=== PATIENT | male | born 1955 | race Caucasian/White ===

== ENCOUNTER 2016-11-07 17:04 | Emergency (ER) | payer OTHER ==
[~2016-11-07] VITALS: Ht 182.9 cm; Wt 87.0 kg
[~2016-11-07 17:04] MED LIST: CYCL5TAB PO; INSPMPHMLG; OXYC1TAB3 PO
[2016-11-07 17:06] VITALS: BP 193/118; PULSE 93; TEMP 36.5; O2SAT 98; Ht 182.9 cm; Wt 87.0 kg
--- NOTE | 2016-11-07 17:32 | EMERGENCY ROOM VISIT NOTE ---
History Report prepared by Hans: Ailyn Hendrix Under the Supervision of: Dr. Fortunato Franco M.D. First contact with patient: 17:19 Chief Complaint: HYPOGLYCEMIA Stated Complaint: HYPOGLYCEMIA, HTN History of Present Illness The patient is a 61 year old male who presents to the Emergency Room with complaints of sudden hypoglycemia that occurred prior to arrival. He currently rates his discomfort as a 10/10 in severity. The patient states that today he changed his infusion site and notes that his blood glucose was 277 mg/dL earlier today. He states that his blood glucose dropped below 40 mg/dL. The patient states that he has had this happen in the past when changing his infusion site. He reports a normal appetite today. Source of History: patient Onset: prior to arrival Position: other (global) Symptom Intensity: 1010 Quality: other (hypoglycemia) Timing: other (sudden) Review of Systems See HPI for pertinent positives & negatives. A total of 10 systems reviewed and were otherwise negative. Past Medical & Surgical Medical Problems: (1) Atypical chest pain (2) Depressive disorder (3) Generalized anxiety disorder (4) HISTORY OF TOBACCO USE Family History Diabetes mellitus Hypertension Social History Smoking Status: Former Smoker Alcohol Use: none Drug Use: none Marital Status: Occupation Status: unemployed Current/Historical Medications Scheduled Cyclobenzaprine Hcl (Flexeril), 5 MG PO TID Insulin Human Lispro (Insulin Humalog Pump ), 1 EA N/A UD Scheduled PRN Oxycodone Ir (Roxicodone Ir), 5 MG PO Q6H PRN for Pain Allergies Coded Allergies: Nortriptyline (Verified Allergy, Unknown, ITCHING, 09/01/15) Physical Exam Vital Signs Date Time Temp Pulse Resp B/P Pulse Ox O2 Delivery O2 Flow Rate FiO2 11/07/16 17:06 36.5 93 18 193/118 98 Room Air Physical Exam The patient refused the physical exam. Medical Decision & Procedures Laboratory Results Test 11/07/16 17:09 Bedside Glucose 170 mg/dl (70-99) Labs reviewed by ED physician. ECG Findings: other ED Course 1723: Past medical records reviewed. The patient was evaluated in room B12B. A complete history and physical examination was performed. The patient states that he would like to go home at this time and was discharged. Medical Decision Differential diagnosis: Etiologies such as metabolic, infection, hypo/hyperglycemia, electrolyte abnormalities, cardiac sources, intracerebral event, toxicologic, neurologic, as well as others were entertained. This is a 61-year-old male who is brought to the emergency department because his blood sugar was low. Upon arrival to emergency Department patient is refusing physical examination. He wishes to be discharged home so he can eat. I feel that this is reasonable as he denies any fevers and not feeling well. The patient reports he sometimes get hypoglycemic when he moves his insulin source. I do believe that this is what happened. Patient was in agreement with the treatment plan. Impression Primary Impression: Hypoglycemia Scribe Attestation The scribe's documentation has been prepared under my direction and personally reviewed by me in its entirety. I confirm that the note above accurately reflects all work, treatment, procedures, and medical decision making performed by me. Departure Information Dispostion Home / Self-Care Referrals Nicolas Padron D.O. (PCP) Forms HOME CARE DOCUMENTATION FORM, IMPORTANT VISIT INFORMATION, WORK / SCHOOL INSTRUCTIONS Patient Instructions Hypoglycemia, My [facility] Additional Instructions You received narcotic or benzodiazepene medication while in the emergency room today. Do not drive, operate heavy machinery, or drink alcohol under the influence of this medication. You have been examined and treated today on an emergency basis only. This is not a substitute for, or an effort to provide, complete comprehensive medical care. It is impossible to recognize and treat all injuries or illnesses in a single emergency department visit. It is therefore important that you follow up closely with Dr Padron. Call as soon as possible for an appointment. Thank you for your time and consideration. I look forward to speaking with you again soon. Please don't hesitate to call us if you have any questions.
== END 2016-11-07 17:33 | disposition home or self-care (01) ==
LOC: EDBD 17:04 → C.EDB 17:05
DX: E16.2 Hypoglycemia, unspecified (principal); F32.9 Major depressive disorder, single episode, unspecified; F41.1 Generalized anxiety disorder; Z87.891 Personal history of nicotine dependence; Z79.4 Long term (current) use of insulin; Z88.8 Allergy status to other drugs, medicaments and biological substances; Z83.3 Family history of diabetes mellitus; Z82.49 Family history of ischemic heart disease and other diseases of the circulatory system

== ENCOUNTER 2017-06-22 13:25 | Emergency (ER) | payer OTHER ==
[~2017-06-22] VITALS: Ht 182.9 cm; Wt 97.7 kg
[2017-06-22 13:28] VITALS: TEMP 36.3; Ht 182.9 cm; Wt 97.7 kg
[2017-06-22] MEDS ORDERED: ONDANSETRON 4MG OD TAB PO STA (14:26)
[2017-06-22] MEDS ORDERED: MoRPHine SULFATE 10 MG/ML CARP/VIAL IM STA (14:26)
--- NOTE | 2017-06-22 14:41 | EMERGENCY ROOM VISIT NOTE ---
History First contact with patient: 14:09 Chief Complaint: FALL Stated Complaint: FELL, KNEE, NECK PAIN, HEADACHE History of Present Illness The patient is a 61 year old male who presents to the Emergency Room with complaints of throbbing headache, neck pain and knee pain after sustaining a mechanical fall last night. The patient was staying at a motel. He tripped over a towel on the floor in the bathroom falling headfirst into the tub. He reports striking the top of his head hit his left knee against the tub. He is also expressing severe neck pain. He is also experiencing some tingling into his left arm. He denies any weakness. The patient denies any difficulty breathing or chest pain. No abdominal pain. He does not take any blood thinners. The patient has a history of chronic lower back pain. He tried to take an oxycodone this morning with minimal relief. On the way to the hospital , the patient experienced 3 episodes of vomiting. He denies any changes in vision. Review of Systems 10 system review performed and negative unless noted in HPI or below Past Medical/Surgical History Medical Problems: (1) Atypical chest pain (2) Depressive disorder (3) Generalized anxiety disorder (4) HISTORY OF TOBACCO USE Chronic back pain Diabetes Family History Diabetes mellitus Hypertension Social History Smoking Status: Former Smoker Alcohol Use: none Drug Use: none Marital Status: Occupation Status: unemployed Current/Historical Medications Scheduled Cyclobenzaprine Hcl (Flexeril), 5 MG PO TID Cyclobenzaprine Hcl (Flexeril), 10 MG PO TID Insulin Human Lispro (Insulin Humalog Pump ), 1 EA N/A UD Scheduled PRN Oxycodone Ir (Roxicodone Ir), 5 MG PO Q6H PRN for Pain Promethazine Hcl (Phenergan), 25 MG PO Q6H PRN for Nausea Physical Exam Vital Signs Date Time Temp Pulse Resp B/P (MAP) Pulse Ox O2 Delivery O2 Flow Rate FiO2 06/22/17 18:14 79 18 169/82 98 Room Air 06/22/17 17:12 72 15 177/99 98 Room Air 06/22/17 16:07 75 18 175/90 100 Room Air 06/22/17 13:28 36.3 76 16 198/99 99 Room Air Physical Exam GENERAL: 81-year-old male, mildly uncomfortable, SKIN: The skin was intact. No ecchymosis noted. HEAD: Normocephalic atraumatic. EYES: Pupils equal round and reactive to light and accommodation. Conjunctivae without injection, sclerae without icterus. Extraocular movements intact. MOUTH: Mucous membranes moist. Tonsils are not enlarged. Pharynx without erythema or exudate. Uvula midline. Airway patent. Tongue does not deviate. NECK: Supple without nuchal rigidity. No lymphadenopathy. Tenderness to palpation over the cervical spinous processes. Negative Spurling sign. No JVD. HEART: Regular rate and rhythm without murmurs gallops or rubs. LUNGS: Clear to auscultation bilaterally without wheezes, rales or rhonchi. No accessory muscle use. ABDOMEN: Positive bowel sounds x 4.Soft, MUSCULOSKELETAL +1 pitting edema in the left lower extremity. Mild calf tenderness noted. Trace pitting edema on the right lower extremity. Mild pain with flexion of the left knee. Mild swelling noted of the left knee. No effusion noted. Strength in the upper extremities is equal bilaterally. Strength 5/5 throughout. NEURO: Patient was alert and oriented to person place and time. Cerebellar function intact. Normal sensation to touch. No focal neurological deficits. Medical Decision & Procedures ER Provider Diagnostic Interpretation: Lower extremity ultrasound Patient Name: JEFRY TEJEDA Unit Number: [id number] Dictated: 06/22/171638 Transcribed: 06/22/171638 KRISTY Printed Date/Time: [~ rep prt dt]/[~ rep prt tm] [~ rep ct labl] - [~ rep ct ivnm] [facility] [place]iology [place] [address] Dictated: 06/22/171638 Transcribed: 06/22/171638 KRISTY Printed Date/Time: [~ rep prt dt]/[~ rep prt tm] [~ rep ct labl] - [~ rep ct ivnm] IMPRESSION: 1. No evidence of deep venous thrombus within the left lower extremity. 2. Probable 4.9 x 2.3 x 3.3 cm left popliteal cyst. Electronically signed by: Jimi Nash M.D. 06/22/2017 4:40 PM Dictated Date/Time: 06/22/2017 4:39 PM The status of this report is Signed. Draft = Not yet reviewed or approved by Radiologist. Signed = Reviewed and approved by Radiologist. <AttendingPhy></AttendingPhy> <FamilyPhy>Nicolas Padron D.O.</FamilyPhy> < PrimaryPhy>Nicolas Padron D.O.</PrimaryPhy> <UnitNumber>[id number]</ UnitNumber> <VisitNumber>[id number]</VisitNumber> <PatientName>JEFRY TEJEDA</PatientName> <DateOfBirth>1955</DateOfBirth> <Location>[facility]</ Location> <ServiceDate>06/22/17</ServiceDate> <MNE>ESINDI</MNE> <OrderingPhy> Tory Barber PA-C</OrderingPhy> <OrderingPhyMNE>f rep ord dr tay</ OrderingPhyMNE> <DictatingPhyMNE>f rep dict dr tay</DictatingPhyMNE> <CCListMNE> f rep ct mne</CCListMNE> <AdmittingPhyMNE>f pt admit dr tay</AdmittingPhyMNE> < AttendingPhyMNE>f pt attend dr tay</AttendingPhyMNE> <ConsultingPhyMNE>f pt consult dr tay</ConsultingPhyMNE> <FamilyPhyMNE>f pt fam dr tay</FamilyPhyMNE> <OtherPhyMNE>f pt other dr tay</OtherPhyMNE> < PrimaryPhyMNE>f pt prim care dr tay</PrimaryPhyMNE> <ReferringPhyMNE>f pt referring dr tay</ReferringPhyMNE> Left knee x-ray Patient Name: JEFRY TEJEDA Unit Number: [id number] Dictated: 06/22/171621 Transcribed: 06/22/171621 KRISTY Printed Date/Time: [~ rep prt dt]/[~ rep prt tm] [~ rep ct labl] - [~ rep ct ivnm] [facility] [place] [address] Dictated: 06/22/171621 Transcribed: 06/22/171621 JA Printed Date/Time: [~ rep prt dt]/[~ rep prt tm] [~ rep ct labl] - [~ rep ct ivnm] IMPRESSION: 1. No acute fracture or joint effusion of the left knee. 2. Mild infrapatellar soft tissue swelling. 3. Mild osteoarthritis within the medial and patellofemoral compartments. Electronically signed by: Jimi Nash M.D. 06/22/2017 4:22 PM Dictated Date/Time: 06/22/2017 4:22 PM The status of this report is Signed. Draft = Not yet reviewed or approved by Radiologist. Signed = Reviewed and approved by Radiologist. <AttendingPhy></AttendingPhy> <FamilyPhy>Nicolas Padron D.O.</FamilyPhy> < PrimaryPhy>Nicolas Padron D.O.</PrimaryPhy> <UnitNumber>[id number]</ UnitNumber> <VisitNumber>[id number]</VisitNumber> <PatientName>JEFRY TEJEDA</PatientName> <DateOfBirth>1955</DateOfBirth> <Location>[facility]</ Location> <ServiceDate>06/22/17</ServiceDate> <MNE>ESINDI</MNE> <OrderingPhy> Tory Barber PA-C</OrderingPhy> <OrderingPhyMNE>f rep ord dr tay</ OrderingPhyMNE> <DictatingPhyMNE>f rep dict dr tay</DictatingPhyMNE> <CCListMNE> f rep ct raziae</CCListMNE> <AdmittingPhyMNE>f pt admit dr tay</AdmittingPhyMNE> < AttendingPhyMNE>f pt attend dr tay</AttendingPhyMNE> <ConsultingPhyMNE>f pt consult dr tay</ConsultingPhyMNE> <FamilyPhyMNE>f pt fam dr tay</FamilyPhyMNE> <OtherPhyMNE>f pt other dr tay</OtherPhyMNE> < PrimaryPhyMNE>f pt prim care dr tay</PrimaryPhyMNE> <ReferringPhyMNE>f pt referring dr tay</ReferringPhyMNE> CT head without contrast IMPRESSION: 1. No acute intracranial findings. 2. No calvarial fracture. Electronically signed by: Jimi Nash M.D. 06/22/2017 3:30 PM Dictated Date/Time: 06/22/2017 3:27 PM The status of this report is Signed. Draft = Not yet reviewed or approved by Radiologist. Signed = Reviewed and approved by Radiologist. CT cervical spine without contrast IMPRESSION: No acute cervical spine fracture or subluxation. Electronically signed by: Jimi Nash M.D. 06/22/2017 3:32 PM Dictated Date/Time: 06/22/2017 3:30 PM The status of this report is Signed. Draft = Not yet reviewed or approved by Radiologist. Signed = Reviewed and approved by Radiologist. <AttendingPhy></AttendingPhy> <FamilyPhy>Nicolas Padron, D.O.</FamilyPhy> < PrimaryPhy>Nicolas Padron, D.O.</PrimaryPhy> <UnitNumber>[id number]</ UnitNumber> <VisitNumber>[id number]</VisitNumber> <PatientName>JEFRY TEJEDA</PatientName> <DateOfBirth>1955</DateOfBirth> <Location>[facility]</ Location> <ServiceDate>06/22/17</ServiceDate> <MNE>ESINDI</MNE> <OrderingPhy> Tory Barber PA-C</OrderingPhy> <OrderingPhyMNE>f rep ord dr tay</ OrderingPhyMNE> <DictatingPhyMNE>f rep dict dr tay</DictatingPhyMNE> <CCListMNE> f rep ct raziae</CCListMNE> <AdmittingPhyMNE>f pt admit dr tay</AdmittingPhyMNE> < AttendingPhyMNE>f pt attend dr tay</AttendingPhyMNE> Laboratory Results 06/22/17 17:00 Red Blood Count 4.81, Mean Corpuscular Volume 90.6, Mean Corpuscular Hemoglobin 31.6, Mean Corpuscular Hemoglobin Concent 34.9, Mean Platelet Volume 9.7, Neutrophils (%) (Auto) 76.8, Lymphocytes (%) (Auto) 17.6, Monocytes (%) (Auto) 4.7, Eosinophils (%) (Auto) 0.2, Basophils (%) (Auto) 0.5, Neutrophils # (Auto) 6.35, Lymphocytes # (Auto) 1.46, Monocytes # (Auto) 0.39, Eosinophils # (Auto) 0.02, Basophils # (Auto) 0.04 06/22/17 17:00 Test 06/22/17 17:00 White Blood Count 8.28 K/uL (4.8-10.8) Red Blood Count 4.81 M/uL (4.7-6.1) Hemoglobin 15.2 g/dL (14.0-18.0) Hematocrit 43.6 % (42-52) Mean Corpuscular Volume 90.6 fL (80-100) Mean Corpuscular Hemoglobin 31.6 pg (25-34) Mean Corpuscular Hemoglobin Concent 34.9 g/dl (32-36) Platelet Count 229 K/uL (130-400) Mean Platelet Volume 9.7 fL (7.4-10.4) Neutrophils (%) (Auto) 76.8 % Lymphocytes (%) (Auto) 17.6 % Monocytes (%) (Auto) 4.7 % Eosinophils (%) (Auto) 0.2 % Basophils (%) (Auto) 0.5 % Neutrophils # (Auto) 6.35 K/uL (1.4-6.5) Lymphocytes # (Auto) 1.46 K/uL (1.2-3.4) Monocytes # (Auto) 0.39 K/uL (0.11-0.59) Eosinophils # (Auto) 0.02 K/uL (0-0.5) Basophils # (Auto) 0.04 K/uL (0-0.2) RDW Standard Deviation 43.8 fL (36.4-46.3) RDW Coefficient of Variation 13.2 % (11.5-14.5) Immature Granulocyte % (Auto) 0.2 % Immature Granulocyte # (Auto) 0.02 K/uL (0.00-0.02) Anion Gap 10.0 mmol/L (3-11) Est Creatinine Clear Calc Drug Dose 125.3 ml/min Estimated GFR () 114.8 Estimated GFR (Non- 99.0 BUN/Creatinine Ratio 14.7 (10-20) Calcium Level 8.7 mg/dl (8.5-10.1) Total Bilirubin 0.8 mg/dl (0.2-1) Aspartate Amino Transf (AST/SGOT) 31 U/L (15-37) Alanine Aminotransferase (ALT/SGPT) 32 U/L (12-78) Alkaline Phosphatase 99 U/L (45-117) Total Protein 7.6 gm/dl (6.4-8.2) Albumin 3.9 gm/dl (3.4-5.0) Globulin 3.7 gm/dl (2.5-4.0) Albumin/Globulin Ratio 1.1 (0.9-2) Lipase 38 U/L (73-393) Medications Administered Medications (Trade) Dose Ordered Sig/Vanessa Route Start Time Stop Time Status Last Admin Dose Admin Morphine Sulfate (MoRPHine SULFATE INJ) 10 mg NOW STAT IM 06/22/17 14:26 06/22/17 14:28 DC 06/22/17 14:34 10 MG Ondansetron HCl (Zofran Odt) 4 mg NOW STAT PO 06/22/17 14:26 06/22/17 14:28 DC 06/22/17 14:33 4 MG Promethazine HCl 12.5 mg/Sodium Chloride 50.5 ml @ 204 mls/hr NOW STAT IV 06/22/17 16:59 06/22/17 17:13 DC 06/22/17 17:10 204 MLS/HR ED Course The patient was seen and examined He was medicated with morphine 10 mg IM and Zofran 4 mg ODT Imaging was performed and reviewed Upon reevaluation, the patient was still nauseated. At this point, labs were collected, saline lock was established He was hydrated with 1 L of normal saline. He was given Phenergan 12.5 mg IV for nausea The patient was also assessed by myself. The physician who is in agreement with my plan. The patient was again reassessed. He was now feeling better. We went over his results. He voiced understanding. He was comfortable being discharged home. Discharge instructions were reviewed, and he was discharged in good condition Medical Decision Differential diagnosis: Intracranial bleed, skull fracture, concussion Spine fracture, ligamentous injury, subluxation, spondylolisthesis, spondylosis, herniated disc, contusion, muscle spasm, knee contusion, fracture, dependent edema, DVT This patient is a 61-year-old male that presented to the emergency department with complaints of a throbbing headache, neck pain, knee pain and nausea resulting from a mechanical fall last night. The patient fell striking his head in the bathtub. On exam, he is neurologically intact. He did not have any signs of head trauma. His cervical spine was tender. His knee was also bruised and slightly swollen. He had +1 pitting edema in the left lower extremity. I ordered a CT to rule out skull fracture or bleed. This was negative. There are no signs of acute abnormality on his cervical CT. Imaging of the knee revealed nothing acute. He does however have a popliteal cyst. I ordered an ultrasound to rule out DVT of the leg. This was also negative. When I reevaluated the patient, he was still nauseated. At that point, I ordered labs. His labs are unremarkable. The patient was medicated with Phenergan with good symptomatic relief. The patient likely has a concussion given the nausea, headache and head injury. He was given concussion precautions. He does not take any anticoagulation. I believe he is stable to be discharged home with close follow-up. The patient was given a prescription for a muscle relaxant for his neck pain. He will continue his other medications as prescribed. He was also given Phenergan for nausea. He is in agreement to return to the emergency department immediately with any new or worsening symptoms, especially worsening headache, intractable nausea, changes in vision or confusion. This chart was completed in part utilizing [employer] Speech Voice Recognition software. Attempts were made to minimize the grammatical errors, random word insertions, pronoun errors and incomplete sentences. Any formal questions or concerns about the content, text or information contained within the body of this dictation should be directly addressed to the provider for clarification. Blood Pressure Screening Patient's blood pressure: Elevated blood pressure Blood pressure disposition: Referred to PCP Impression Primary Impression: Fall Additional Impression: Head injury Departure Information Dispostion Home / Self-Care Condition FAIR Prescriptions Cyclobenzaprine Hcl (FLEXERIL) 10 Mg Tab 10 MG PO TID for Muscle Spasms, #15 TAB Prov: Tory Barber PA-C 06/22/17 Promethazine Hcl (Phenergan) 25 Mg Tab 25 MG PO Q6H Y for Nausea, #20 TAB Prov: Tory Barber PA-C 06/22/17 Referrals Nicolas Padron D.O. (PCP) Patient Instructions My [facility] Additional Instructions You were evaluated in the emergency department after a fall and head injury. Imaging did not show any acute injuries. Please take your pain medication as prescribed. Flexeril every 8 hours as needed for muscular pain and spasms. Please do not drink alcohol or drive well taking this medication. Phenergan 1 tab every 6 hours as needed for nausea Given the head injury and nausea, it is likely that you have a concussion. Please do not participate in sports or perform rigorous activity until you see your primary care physician in follow-up. Please do not hesitate to return to the emergency department with any new, persistent or worsening symptoms; especially persistent vomiting, changes in vision, worsening headache or neck pain Problem Qualifiers
--- NOTE | 2017-06-22 15:31 | DIAGNOSTIC IMAGING REPORT ---
CT OF THE HEAD WITHOUT CONTRAST CLINICAL HISTORY: Headache, nausea and vomiting. Fall. COMPARISON STUDY: Head CT July 16, 2012. CT DOSE: 1079.53 mGy.cm TECHNIQUE: Helical axial images of the head were obtained without IV contrast. Automated exposure control was utilized for the study. A dose lowering technique was utilized adhering to the principles of ALARA. FINDINGS: No acute intracranial hemorrhage, midline shift or mass effect is present. Ventricular system is stable. Basilar cisterns are patent. There are no extra axial collections. Sultana-white differentiation is maintained. There are no findings to suggest acute dural sinus thrombosis or acute territorial infarct. There is no calvarial fracture. IMPRESSION: 1. No acute intracranial findings. 2. No calvarial fracture. Electronically signed by: Jimi Nash M.D. 06/22/2017 3:30 PM Dictated Date/Time: 06/22/2017 3:27 PM
--- NOTE | 2017-06-22 15:33 | DIAGNOSTIC IMAGING REPORT ---
CT OF THE CERVICAL SPINE WITHOUT CONTRAST CLINICAL HISTORY: Neck pain. Tingling down left arm. Fall. COMPARISON STUDY: No previous studies for comparison. TECHNIQUE: Helical axial images of the cervical spine were obtained without IV contrast. Sagittal and coronal reconstructions were viewed. A dose lowering technique was utilized adhering to the principles of ALARA. FINDINGS: Alignment of the cervical spine is anatomic. Vertebral body heights are maintained. Craniocervical junction is intact. There is no acute cervical spine fracture or subluxation. There is no prevertebral edema. There is mild multilevel degenerative disc disease and facet arthrosis. IMPRESSION: No acute cervical spine fracture or subluxation. Electronically signed by: Jimi Nash M.D. 06/22/2017 3:32 PM Dictated Date/Time: 06/22/2017 3:30 PM
--- NOTE | 2017-06-22 16:24 | DIAGNOSTIC IMAGING REPORT ---
L KNEE 3 VIEWS CLINICAL HISTORY: Left knee pain. COMPARISON: None FINDINGS: Alignment of the left knee is anatomic. No acute fracture or joint effusion or osseous lesion. There is extensive vascular calcification. There is mild infrapatellar soft tissue swelling. There is minimal osteoarthritis within the medial and patellofemoral compartments. IMPRESSION: 1. No acute fracture or joint effusion of the left knee. 2. Mild infrapatellar soft tissue swelling. 3. Mild osteoarthritis within the medial and patellofemoral compartments. Electronically signed by: Jimi Nash M.D. 06/22/2017 4:22 PM Dictated Date/Time: 06/22/2017 4:22 PM
--- NOTE | 2017-06-22 16:42 | DIAGNOSTIC IMAGING REPORT ---
LEFT LOWER EXTREMITY VENOUS DOPPLER CLINICAL HISTORY: Left lower extremity edema. COMPARISON STUDY: Bilateral lower extremity venous Doppler July 03, 2011. TECHNIQUE: Sonography of the deep venous system of the left lower extremity was performed. Compression and augmentation were evaluated. FINDINGS: The left common femoral, superficial femoral and popliteal veins were compressible. Augmentation was normal. Flow was shown within the deep calf vessels. Note is made of a 4.9 x 2.3 x 3.3 cm cystic focus within the left popliteal fossa. This suggests a popliteal cyst. IMPRESSION: 1. No evidence of deep venous thrombus within the left lower extremity. 2. Probable 4.9 x 2.3 x 3.3 cm left popliteal cyst. Electronically signed by: Jimi Nash M.D. 06/22/2017 4:40 PM Dictated Date/Time: 06/22/2017 4:39 PM
[2017-06-22] MEDS ORDERED: PROMETHAZINE HCL INJ 12.5 MG in SODIUM CHLORIDE 0.9% 50ML 50 ML IV STA (16:59)
[2017-06-22 17:08] LABS: BASO % 0.5 %; BASO ABS # 0.04 K/uL (0-0.2); COMPLETE YES; EOS % 0.2 %; HEMATOCRIT 43.6 % (42-52); IG% 0.2 %; LYMPH % 17.6 %; LYMPH ABS # 1.46 K/uL (1.2-3.4); MEAN CELL VOLUME 90.6 fL (80-100); MEAN CORPUSCULAR HEMOGLOBIN 31.6 pg (25-34); MEAN CORPUSCULAR HGB CONC 34.9 g/dl (32-36); MEAN PLATELET VOLUME 9.7 fL (7.4-10.4); MONO % 4.7 %; NEUT % 76.8 %; PLATELET COUNT 229 K/uL (130-400); RED BLOOD COUNT 4.81 M/uL (4.7-6.1); WHITE BLOOD COUNT 8.28 K/uL (4.8-10.8)
--- NOTE | 2017-06-22 17:12 | EMERGENCY ROOM VISIT NOTE ---
ED Visit Note First contact with patient: 14:09 This Patient was discussed with the physician assistant vice president, Tory Barber PA-C. The pertinent historical and physical exam findings were confirmed. I agree with the studies ordered and with the interpretations of these studies. I agree with the disposition and care plan.
[2017-06-22 17:25] LABS: BUN/CREATININE RATIO 14.7 (10-20); CALCIUM 8.7 mg/dl (8.5-10.1); CREATININE 0.75 mg/dl (0.60-1.40); POTASSIUM 4.1 mmol/L (3.5-5.1)
[2017-06-22 17:28] LABS: ALB/GLOB RATIO 1.1 (0.9-2)
[2017-06-22] MEDS ORDERED: PROM25TA9 PO (17:59)
[2017-06-22] MEDS ORDERED: CYCL10TA6 PO (17:59)
[2017-06-22 18:14] VITALS: BP 169/82; PULSE 79; O2SAT 98
== END 2017-06-22 18:15 | disposition home or self-care (01) ==
LOC: C.EDB 13:27 → C.EDA 18:15
DX: S09.90XA Unspecified injury of head, initial encounter (principal); W18.09XA Striking against other object with subsequent fall, initial encounter; S80.02XA Contusion of left knee, initial encounter; Y92.59 Other trade areas as the place of occurrence of the external cause; M54.5 Low back pain; G89.29 Other chronic pain; E11.9 Type 2 diabetes mellitus without complications; R03.0 Elevated blood-pressure reading, without diagnosis of hypertension; R60.0 Localized edema; Z87.891 Personal history of nicotine dependence; Z79.4 Long term (current) use of insulin

== ENCOUNTER → 2017-09-27 | Outpatient (CLI) | payer OTHER ==
[~2017-09-27] VITALS: Ht 180.3 cm; Wt 232.0 kg
[~2017-09-27] MED LIST changes: +PROM25TA9 PO
[2017-09-27 13:48] VITALS: BP 190/99; PULSE 98; Ht 180.3 cm; Wt 232.0 kg
== END | disposition home or self-care (01) ==
LOC: C.NEUR 13:20
PROVIDERS: ATTEND Internal Medicine Pulmonary Disease
DX: G47.33 Obstructive sleep apnea (adult) (pediatric) (principal); J34.2 Deviated nasal septum

== ENCOUNTER → 2017-09-29 | Outpatient (CLI) | payer OTHER ==
--- NOTE | 2017-09-30 05:34 | PAP/PSG TECHNICIAN REPORT ---
[facility] Esthetics Instructor Polysomnogram Report Study name: None Report date: 09/30/2017 Study date: 09/29/2017 Referring Physician: DR. MURRAY Name: JEFRY PITTMAN Interpreting Physician: Willie Murray M.D. Date of : 1955 Esthetics Instructor: MERRY Fernandes. Sex: Male Age: 61 StudyType: PSG Weight: 230 lbs 16.5 inches Height: 61 years, Height 5' 11" Neck Circum: BMI: 32.07 Medications: ACETAMINOPHEN ER 650 MG, CYCLOBENZAPRINE HCL 10 MG, FOLIC ACID 1 MG, GABAPENTIN 400 MG, HUMALOG 100 UNIT/ML, IRON 325 MG, MAGNESIUM OXIDE 400 MG, OXYCODONE HCL 5 MG, VITAMIN D3, ZINC 50 MG Patient History PATIENT HAS HISTORY OF DAYTIME FATIGUE, MAN AND HAD GASTRIC BYPASS SURGERY. HE HAS LOST OVER 140 LBS. HE WORE CPAP FOR SEVERAL YEARS UNTIL HIS EQUIPMENT STOPPED WORKING. HE IS HERE TODAY FOR AN EVALUATION FOR MAN. ESS = 8 RM 1 Parameters Monitored NPSG: E1-M2, E2-M1, Fp1-M2, Fp2-M1, F3-M2, F4-M2, F4-M1, C3-M2, C4-M2, C4-M1, O1-M2, O2-M2, O2-M1, T3-M2, T4-M1, P3-M2, P4-M1, CHIN1, CHIN2, HR, EKG, Legs, PFLOW, SNOR, FLOW, CFLOW, Tidal Volume, THOR, ABDO, SpO2, PLTH, CPRESS, ETCO2 Wave, ETCO2, pH Sleep Architecture Sleep Stages Time at Lights Off 9:44:32 PM STAGES Time (min.) TST (%) Time at Lights On 5:06:32 AM Wake 92.0 -- Total Recording Time (TRT) 442.50 min. N1 13.5 4 Total Sleep Period (TSP) 410.5 min. N2 228.0 65 Total Sleep Time (TST) 350.0min. N3 6.5 2 Awake Time 92.5 min. REM 102.0 29 Wake after Sleep Onset 69.0 min. Sleep Efficiency (SE) 79 % Sleep Onset Latency (CATRACHO) 23.0 min. Number of Stage 1 Shifts None Awakenings 10 Stage Changes 46 Number of REM periods 4 REM 102.0 29 REM Latency 66.5 min. NREM 248.0 71 Body Position Analysis Supine Right Left Side Prone Vertical Total Sleep Time (min.) 296.0 0.0 143.6 143.59 0.0 0.0 Total Sleep Time (%) 59% 0% 41% 41 0% N/A% Total Sleep Time REM (min.) 49.0 0.0 53.0 None 0.0 0.0 Total Sleep Time NREM (min.) 157.4 0.0 90.6 None 0.0 0.0 Intermittent Wake (min.) 89.6 0.0 2.4 None 0.0 0.0 Total Sleep Period (%) 64% None None None None None Arousals Myoclonus (PLM) * Events Count Index Events Count Index Spontaneous 16 3 Events Awake (PLMW) 36 23.5 Respiratory 0 0.0 Events Asleep w/ Arousal (PLMA) 10 1.7 PLM 10 2 Events Asleep w/o Arousal (PLMS) 277 47.5 Snoring 1 0 Total Asleep 287 49.2 Total 27 5 Total 323 44 Respiratory Analysis * CA OA MA CH H RERA Total Count 0 0 0 0 6 0 6 Index 0.0 0.0 0.0 0 1.0 0 1.0 Mean Duration 0.0 0.0 0.0 0.00 17.4 0.0 17.4 Longest Duration 0.0 0.0 0.0 0.00 0.0 0.0 21.0 Respiratory Event Summary Total Supine ~Supine Right Left Prone REM NREM Apneas Count 0 0 0 N/A 0 N/A 0 0 Index 0.0 0 0 N/A 0.0 N/A 0 0 Hypopneas (4% Desat) Count 6 6 0 N/A 0 N/A 6 0 Index 1.0 1.7 0 N/A 0.0 N/A 3.5 0.0 Apneas & All Hypopneas Count 6 6 0 N/A 0 N/A 6 0 Index 1.0 2 0 N/A 0 N/A 3.5 0.0 Respiratory Events (Allergist/Pediatric Pulmonologist+All Hyp+RERA) Count 6 6 0 N/A 0 N/A 6 0 Index 1.0 2 0 N/A 0.0 N/A 3.5 0.0 Respiratory Related Arousal Count 0 6 0 N/A 0 N/A 0 0 Index 0.0 0 0 N/A 0 N/A 0 0 Snoring Analysis Supine Right Left Prone REM NREM Total Snore duration 4.3 min Snores count 211 N/A 7 N/A 54 164 218 Snore mean duration 1.2 Sec Snores index 61 N/A 3 N/A 31.8 39.7 37.4 TST with snoring (%) 1.2% Desaturation Event Summary: Minimum %SpO2 Event Count Mean/Min/Max Duration(sec.) Desaturation Index % Time In Bed > 90 8 32.5 / 18.8 / 55.8 1.3 90.9 86 - 90 3 31.3 / 19.0 / 55.8 4.8 9.1 81 - 85 0 N/A 0.0 0.0 76 - 80 0 N/A 0.0 0.0 71 - 75 0 N/A 0.0 0.0 66 - 70 0 N/A 0.0 0.0 61 - 65 0 N/A 0.0 0.0 56 - 60 0 N/A 0.0 0.0 51 - 55 0 N/A 0.0 0.0 < 50 0 N/A 0.0 0.0 Total REM NREM Awake <50% 0.0 min. 0.0 min. 0.0 min. 0.0 min. 51 - 60% 0.0 min. 0.0 min. 0.0 min. 0.0 min. 61 - 70% 0.0 min. 0.0 min. 0.0 min. 0.0 min. 71 - 80% 0.0 min. 0.0 min. 0.0 min. 0.0 min. 81 - 90% 37.7 min. 7.8 min. 29.1 min. 0.8 min. 91 - 100% 375.3 min. 93.5 min. 218.4 min. 63.4 min. Average 93 93 93 94 Minimum SpO2 82 87 84 82 Desaturation Event Index 1.1 2.9 0.2 1.3 # Desat. Events below 89% 6 4 1 1 Time(%) with Saturation below 89% 0.5 0.3 0.1 0.1 Time(min.) with Saturation below 89% 1.9 1.2 0.3 0.4 Time (mins) REM (mins) NREM (mins) % of TST SpO2 Below 90% 6 5 N1 1.6 SpO2 Below 88% 2 0 0 0 Heart Rate Analysis Min (bpm) Max (bpm) Average (bpm) Awake 56 188 68 NREM 56 127 63 REM 60 85 67 Overall 56 127 64 Supplemental O2 Values Minimum O2 level: None Value Start Time End Time Esthetics Instructor Comments Mr. Pittman slept in the left and supine positions. PVC's noted. Leg movements noted. No bruxism noted. Snoring was noted and scored as a 2 on a scale of 1 through 5. (0=no snoring, 5=snoring loud enough to be heard through a closed door or down the tarango way) Mr. Pittman awoke to use the restroom 1 time during the night. Mr. Pittman stated I did not sleep as well as I do when I am in my own bed. The final report will be interpreted and signed by a sleep physician. The completed physician report will then be placed in the patient medical record. Therapy (cm H2O) 0 TIB (min.) 442.0 TST (min.) 350.0 Sleep Onset (min.) 23.0 REM Onset From Sleep (min.) 66.5 Sleep Efficiency % 79 Wakefulness (%) 21 Wakefulness (min.) 92.5 NREM 1 (%) 4 NREM 1 (min.) 13.5 NREM 2 (%) 65 NREM 2 (min.) 228.0 NREM 3 (%) 2 NREM 3 (min.) 6.5 REM (%) 29 REM (min.) 102.0 # Arousals 27 Arousal Index 5 # Snore 218 Snore Index 37.4 AHI 1.0 AHI Supine 2 AHI Non-Supine 0 NREM AHI 0.0 REM AHI 3.5 RDI 1.0 # Obstructive Apnea 0 # Central Apnea 0 # Mixed Apnea 0 # Hypopneas 6 RERAs 0 Total Respiratory Events 6 Time Below SpO2 89% (min.) 1.5 Mean NREM SpO2 (%) 93 Mean REM SpO2 (%) 93 Mean Sleep SpO2 (%) 93 Min NREM SpO2 (%) 84 Min REM SpO2 (%) 87 Position Supine (min.) 296.0 Position Non-supine (min.) 143.6 LM Index Sleep 49.2 LM Index NREM 62.4 LM Index REM 17.1 Mean Heart Rate (bpm) 64 Min Heart Rate (bpm) 56
--- NOTE | 2017-10-02 08:42 | POLYSOMNOGRAPH REPORT ---
CLINICAL DATA: A 61-year-old male with BMI of 32, referred by myself and Dr. Lindsay with fatigue, obstructive sleep apnea and previous gastric bypass surgery. He had used CPAP for several years until his equipment stopped working. He has lost a significant amount of weight since surgery. SLEEP ARCHITECTURE: Total sleep period was 410.5 minutes. Total sleep time was 350 minutes divided between 248 minutes of non-REM sleep and 102 minutes of REM sleep. Sleep onset latency was 23 minutes. REM latency was 66.5 minutes. Sleep efficiency was 79%. Wake after sleep onset was 69 minutes. Sleep consisted of stage N1 4%, stage N2 65%, stage N3 2% and REM 29%. AROUSAL DATA: 27 arousals were recorded for an index of 5 per hour. PERIODIC LIMB MOVEMENT DATA: Significantly elevated limb movements during sleep were noted. There were 287 limb movements during sleep noted for an index of 49.2 per hour with arousal index of 1.7 per hour. RESPIRATORY DATA: The AHI was 1. There were 6 hypopneic episodes with a mean duration of 17.4 seconds. OXIMETRY DATA: Transient hypoxemia was seen. Oxygen clemencia was 84% during non-REM sleep. Mean saturation was 93%. Time below 89% was 2 minutes. EKG: Heart rates ranged from 56-127 beats per minute. PVCs were noted. MANAGEMENT TRAINER'S COMMENTS: The patient slept in the left and supine position. Snoring was mild, rated 2 on a scale of 1-5. IMPRESSION: No evidence of significant residual sleep apnea/hypopnea or nocturnal hypoxemia in this patient with a previous history of sleep apnea, status post gastric bypass with significant weight loss. RECOMMENDATIONS: The patient should continue to maintain his weight at as low a level as possible. He should continued to practice good sleep hygiene. There is no need for CPAP at this time. ANILD
== END | disposition home or self-care (01) ==
LOC: C.NEUR 21:00
PROVIDERS: ATTEND Internal Medicine Pulmonary Disease
DX: G47.33 Obstructive sleep apnea (adult) (pediatric) (principal)

== ENCOUNTER → 2017-10-15 | Outpatient (CLI) | payer OTHER ==
[2017-10-15 12:38] LABS: BLOOD UREA NITROGEN 9 mg/dl (7-18); CALCIUM 8.9 mg/dl (8.5-10.1); CARBON DIOXIDE 29 mmol/L (21-32); CREATININE 0.81 mg/dl (0.60-1.40); GLUCOSE 132 mg/dl (70-99); POTASSIUM 3.7 mmol/L (3.5-5.1); SODIUM 141 mmol/L (136-145)
== END | disposition home or self-care (01) ==
LOC: C.LAB1850 10:37
PROVIDERS: ATTEND Internal Medicine Endocrinology, Diabetes & Metabolism
DX: E10.9 Type 1 diabetes mellitus without complications (principal)

== ENCOUNTER → 2017-10-29 | Outpatient (CLI) | payer OTHER ==
[2017-10-29 12:24] LABS: BLOOD UREA NITROGEN 10 mg/dl (7-18); CALCIUM 8.4 mg/dl (8.5-10.1); CARBON DIOXIDE 25 mmol/L (21-32); CREATININE 0.71 mg/dl (0.60-1.40); GLUCOSE 67 mg/dl (70-99); POTASSIUM 3.7 mmol/L (3.5-5.1); SODIUM 141 mmol/L (136-145)
== END | disposition home or self-care (01) ==
LOC: C.LAB1850 10:35
PROVIDERS: ATTEND Internal Medicine Endocrinology, Diabetes & Metabolism
DX: E10.42 Type 1 diabetes mellitus with diabetic polyneuropathy (principal)

== ENCOUNTER 2021-03-21 07:33 | Inpatient (IN) ==
[2021-03-21] MEDS ORDERED: SODIUM CHLORIDE 0.9% 1000ML 1,000 ML IV ONE ×2 (07:43→07:53)
[2021-03-21] MEDS ORDERED: NovoLIN-R INSULIN PER UNIT CHARGE IV STA (07:48)
[2021-03-21] MEDS ORDERED: CALCIUM CHLORIDE 10% 1,000 MG in SODIUM CHLORIDE 0.9% 50 ML IV STA (07:48)
[2021-03-21] MEDS ORDERED: ALBUT/IPRATROP 3MG/0.5MG NEB 3 ML VIAL NEB ONE (07:48)
[2021-03-21] MEDS ORDERED: CALCIUM GLUCONATE 10% 10 ML VIAL IV ONE (07:57)
[2021-03-21 07:59] LABS: iSTAT Blood Urea Nitrogen 58 mg/dl (7-18); iSTAT Carbon Dioxide 6 mmol/L (24-31); iSTAT Chloride 97 mmol/L (101-112); iSTAT Glucose > 700 mg/dl (70-99); iSTAT Hematocrit 37 % (42-52); iSTAT Hemoglobin 12.6 g/dl (14.0-18.0); iSTAT Ionized Calcium 1.05 mmol/l (1.12-1.32); iSTAT Potassium 7.5 mmol/L (3.3-5.0); iSTAT Sodium 123 mmol/L (135-144)
[2021-03-21] MEDS ORDERED: CALCIUM GLUCONATE 1000 MG/60 ML NSS IV ONE (08:00)
[2021-03-21 08:06] LABS: Base Excess VBG -27.6 mEq/L; pH VBG 6.85 (7.36-7.41)
[2021-03-21 08:12] LABS: INR 1.1 (0.9-1.1); Partial Thromboplastin Ratio 1.4; Partial Thromboplastin Time 36.7 Seconds (21.0-31.0); Prothrombin Time 11.2 Seconds (9.0-12.0)
--- NOTE | 2021-03-21 08:15 | XRay Report ---
XR chest 1V portable HISTORY: 65 years-old Male SEPSIS acute sepsis COMPARISON: Chest radiograph fourth 15/10/2012 TECHNIQUE: Portable AP view of the chest FINDINGS: Cardiac silhouette is enlarged, unchanged. Calcified plaque of the thoracic aorta. No pneumothorax, p leural effusion, airspace consolidation or overt pulmonary edema. Degenerative changes of the shoulde rs and spine. Right shoulder rotator cuff calcific tendinosis. Cholecystectomy. IMPRESSION: No acute process. ACT 112: Negative or not required by law. The above report was generated using voice recognition software. It may contain grammatical, syntax o r spelling errors. Electronically signed by: Liu Tang M.D. 03/21/2021 8:14 AM
--- NOTE | 2021-03-21 08:19 | Emergency Department Note ---
Impression & Plan DKA (diabetic ketoacidosis), Acute renal failure, Acute hyperkalemia, Encephalopathy, Acute intestinal ischemia, Acute dehydration, Vomiting, Contusion of flank, Acute non-ST elevation myocardial infarction (NSTEMI) ED Provider Note NAME: JEFRY TEJEDA AGE: 65 SEX: M : 1955 ARRIVES VIA: Ambulance INFORMANT: EMS personnel ED PROVIDER(S): Bridger Ragland DO CHIEF COMPLAINT: Altered mental status HPI: The patient is a 65-year-old male who is a history of insulin-dependent diabetes who presented to the emergency department for an evaluation of altered mental status. According to the EMS personnel the patient was found by his this morning confused. He does have a history of diabetes and his blood sugar was found to be elevated. He does have an insulin pump. The patient is unable to give history at this time. History was obtained from EMS personnel. There is no history of trauma. The patient has been in his normal state of health until the last 24 hours according to the patient's significant other. The patient was not seen by provider prior to coming to the emergency department. His insulin pump was working according to the family. There is no history of fever. There is no history of cough. The patient has had no exposure to COVID- 19 according EMS personnel. ROS: See above HPI for pertinent positives & negatives. A total of 10 systems reviewed and were otherwise negative. PAST MEDICAL HISTORY: See Below PAST SURGICAL HISTORY: See Below FAMILY HISTORY: See Below SOCIAL HISTORY: See Below HOME MEDICATIONS: See Below ALLERGIES: See Below VITALS: See Below PHYSICAL EXAMINATION: GENERAL: The patient is obtunded. He responds to loud verbal stimuli but not appropriately. EYES: The conjunctivae are clear. The pupils are dilated and reactive bilaterally. EARS, NOSE, MOUTH AND THROAT: The nose is without any evidence of any deformity. Mucous membranes are dry. NECK: The neck is nontender and supple. RESPIRATORY: Lung sounds were clear to auscultation. Tachypnea was noted. Deep inspirations were noted. CARDIOVASCULAR: Regular rate and rhythm noted there no murmurs rubs or gallops normal S1 normal S2. GASTROINTESTINAL: The abdomen is soft and mildly distended. There is diffuse tenderness to palpation but no guarding rigidity. MUSCULOSKELETAL/EXTREMITIES: There is no evidence of gross deformity full range of motion is noted in the hips and shoulders. SKIN: Skin was cool and mottled. There was ecchymosis noted on the left flank. NEUROLOGIC: Patient is awake to loud verbal stimuli. He is moving all extremities well. He does not answer questions appropriately so orientation is difficult to ascertain at this time. MEDICAL DECISION MAKING: The patient is a 65-year-old male who presented to the emergency department for evaluation of altered mental status. The patient has a history of diabetes. His insulin pump was changed recently. The patient was noted to have nausea and vomiting yesterday according to his significant other. History was significant limited because of the patient's mental status but eventually the patient's significant other presented to the emergency department to be with him. The patient was found to have an abnormal EKG which could be consistent with hyperkalemia. He was treated with calcium a DuoNeb IV fluids and insulin in the emergency department initially. He was then started on DKA protocol insulin drip. The patient received multiple fluid boluses in the emergency department. I discussed the patient's laboratory and radiographic studies with the patient's significant other. I discussed his case with the on-call [facility] hospitalist group as well as the on-call driver license reviewing officer. They have agreed to evaluate the patient in the emergency department for further management and disposition. The patient was reevaluated multiple times. The patient's overall condition seemed to improve. He did have abdominal tenderness on physical exam which prompted CT of the abdomen and pelvis. This appears to be consistent with some degree of intestinal ischemia. Given the patient's presentation this is most likely due to low flow intestinal ischemia but an acute mesenteric venous thrombosis or arterial occlusion cannot be ruled out. The patient's creatinine is elevated and he cannot receive contrast at this time. After discussion with the [facility] and the driver license reviewing officer it is felt the patient requires further resuscitation prior to evaluation for surgical intervention. The patient's significant other was agreeable to this plan but the patient was evaluated by surgery. Triage Nursing notes reviewed. Prior medical records reviewed Vital Signs: reviewed and remarkable for hypotension, tachypnea, hypothermia. Differential diagnosis: Infection, hypoglycemia, electrolyte abnormalities, overdose, toxicologic, cardiac sources, intracerebral event, neurologic, trauma, as well as other pathologies. ER treatment provided: See below Diagnostics interpreted by me: ECG: EKG was obtained in the emergency department. My interpretation is sinus rhythm at [address] segment depressions were noted. T wave abnormali ties were noted. This was compared to a tracing from September 072019. Significant changes have occurred in sinus rhythm has been replaced with a wide- complex rhythm. A second EKG was obtained after calcium treatment. My interpretation is sinus rhythm at 70 bpm. First-degree AV block was still noted. Persistence of ST segment depression and T wave abnormalities was noted. Cardiac Monitoring: An order was placed for continuous cardiac monitoring. The monitor shows a rate of 75 bpm with sinus rhythm. Laboratory studies: As stated above and show below. Imaging studies: See below Consultation(s): I discussed this case with Edwige who is on-call for the [facility] hospitalist group. They will evaluate the patient in the emergency department. 0940: I discussed this case with Dr. Guillaume who is on-call for the driver license reviewing officer group. ED COURSE: Procedures: none Critical Care: I have personally spent greater than 75 minutes of critical care time in the direct management of this patient. This includes bedside care, interpretation of diagnostic studies, and testing, discussion with consultants, patient, and family members, and other required patient management activities. This 75 minutes is in excess of all separately billable procedures. Past Med/Surg History Medical History (Updated 03/21/21 @ 16:31 by Bridger Ragland DO) COPD (chronic obstructive pulmonary disease) Diabetes mellitus with diabetic polyneuropathy Diabetes type 1, controlled Diabetic peripheral neuropathy associated with type 1 diabetes mellitus History of pulmonary embolism Hx of recurrent vertebral fractures Hypertension Vitamin D deficiency Surgical History Gastric bypass status for obesity History of back surgery History of carpal tunnel release of both wrists Hx of knee surgery Hx of shoulder surgery S/P cholecystectomy Ulnar nerve entrapment corrected Family History Mother Alzheimer disease Hypertension Brother Diabetes A-fib Father Bone cancer Social History Smoking Status: Never smoker Hx Alcohol Use: Yes Alcohol Intake Frequency Comment: Occasional Preferred Language: Sami Communication Ability: Unable Beliefs That Will Affect Care: None marital status: Current Living Situation: Spouse current occupational status: retired Allergies Allergies Allergy/AdvReac Type Severity Reaction Status Date / Time nortriptyline Allergy Unknown ITCHING Verified 03/21/21 08:53 hydromorphone [From Dilaudid] AdvReac Unknown Nausea/Vomi Verified 03/21/21 08:53 ting Home Meds Home Medications Medication Instructions Recorded Confirmed blood sugar diagnostic (Contour #10 ea 05/20/19 11/18/20 Next Test Strips) blood-glucose sensor (Dexcom G6 #3 ea 07/31/19 02/17/21 Sensor) cyanocobalamin (vitamin B-12) 1,000 mcg PO QAM 02/03/20 03/21/21 1,000 mcg capsule metoprolol succinate 25 mg 25 mg PO QAM 11/18/20 03/21/21 tablet,extended release 24 hr (Toprol XL) amlodipine 5 mg tablet (Norvasc) 5 mg PO QAM 03/21/21 03/21/21 cholecalciferol (vitamin D3) 50 2,000 units PO QAM 03/21/21 03/21/21 mcg (2,000 unit) capsule (Vitamin D3) lisinopril 40 mg tablet (Zestril) 40 mg PO QAM 03/21/21 03/21/21 spironolactone 25 mg tablet 25 mg PO BID 03/21/21 03/21/21 (Aldactone) Previous Rx's Medication Instructions Recorded insulin lispro 100 unit/mL See Rx Instructions SQ .COMPLEX 02/23/21 subcutaneous solution (Humalog #50 ml U-100 Insulin) Results & Data (ED) Vital Signs Vital Signs - 24 hr 03/21/21 07:40 03/21/21 07:45 03/21/21 08:02 Temperature 34.5 C L Temperature Source Rectal Pulse Rate 68 61 60 Pulse Rate [Forehead] Pulse Rate from SpO2 Sensor 67 68 Respiratory Rate 27 H 22 22 Respiratory Effort / Characteristics Spontaneous Accessory Muscle Use Grunting Labored Respiratory Depth Shallow Respiratory Pattern Tachypnea Blood Pressure 91/47 L 78/60 L 88/42 L Blood Pressure Mean 61 66 57 Blood Pressure Position Lying Pulse Oximetry 96 95 100 Oxygen Delivery Method Nasal Cannula Aerosol Mask Oxygen Flow Rate 4 Sepsis Recent Fever Within 48 Hours No Sepsis New/Unexplained Change in Mental Status No Sepsis Action Taken by Nursing Physician Notified 03/21/21 08:05 03/21/21 08:18 03/21/21 08:49 Temperature Temperature Source Pulse Rate 140 H 67 Pulse Rate [Forehead] 68 Pulse Rate from SpO2 Sensor 69 Respiratory Rate 20 27 H 24 Respiratory Effort / Characteristics Spontaneous Moaning Respiratory Depth Respiratory Pattern Blood Pressure Blood Pressure Mean Blood Pressure Position Pulse Oximetry 100 100 Oxygen Delivery Method Nasal Cannula Aerosol Mask Oxygen Flow Rate 4 15 Sepsis Recent Fever Within 48 Hours Sepsis New/Unexplained Change in Mental Status Sepsis Action Taken by Nursing 03/21/21 09:01 03/21/21 09:16 03/21/21 09:30 Temperature Temperature Source Pulse Rate 79 71 64 Pulse Rate [Forehead] Pulse Rate from SpO2 Sensor 67 69 Respiratory Rate 30 H 20 30 H Respiratory Effort / Characteristics Respiratory Depth Respiratory Pattern Blood Pressure 114/51 L 83/56 L 103/51 L Blood Pressure Mean 72 65 68 Blood Pressure Position Pulse Oximetry 100 99 97 Oxygen Delivery Method Aerosol Mask Aerosol Mask Oxygen Flow Rate 15 15 Sepsis Recent Fever Within 48 Hours Sepsis New/Unexplained Change in Mental Status Sepsis Action Taken by Nursing 03/21/21 09:39 03/21/21 09:45 03/21/21 09:51 Temperature Temperature Source Pulse Rate 62 62 Pulse Rate [Forehead] Pulse Rate from SpO2 Sensor 62 65 Respiratory Rate 30 H 26 H Respiratory Effort / Characteristics Spontaneous Accessory Muscle Use Grunting Labored Respiratory Depth Respiratory Pattern Blood Pressure 111/45 L 97/50 L Blood Pressure Mean 67 65 Blood Pressure Position Pulse Oximetry 100 100 Oxygen Delivery Method Nasal Cannula Nasal Cannula Other Oxygen Flow Rate 4 4 Sepsis Recent Fever Within 48 Hours Sepsis New/Unexplained Change in Mental Status Sepsis Action Taken by Nursing 03/21/21 10:00 Temperature Temperature Source Pulse Rate 63 Pulse Rate [Forehead] Pulse Rate from SpO2 Sensor 65 Respiratory Rate 25 H Respiratory Effort / Characteristics Respiratory Depth Respiratory Pattern Blood Pressure 111/47 L Blood Pressure Mean 68 Blood Pressure Position Pulse Oximetry 100 Oxygen Delivery Method Oxygen Flow Rate Sepsis Recent Fever Within 48 Hours Sepsis New/Unexplained Change in Mental Status Sepsis Action Taken by Shelter Medications Current Medication List: was personally reviewed by me Laboratory Data Attestation: I reviewed the patient's lab results. Result diagrams: 03/21/21 07:48 03/21/21 15:50 Lab Results 03/21/21 03/21/21 03/21/21 Range/Units 07:38 07:41 07:47 WBC (4.8-10.8) K/uL RBC (4.7-6.1) M/uL Hgb (14.0-18.0) g/dL POC Hgb 12.6 L (14.0-18.0) g/dl Hct (42-52) % POC Hct 37 L (42-52) % MCV (80-100) fL MCH (25-34) pg MCHC (32-36) g/dL Plt Count (130-400) K/uL Neutrophils % (Manual) % Lymphocytes % (Manual) % Monocytes % (Manual) % Basophils % (Manual) % Metamyelocytes % (Man) % Neutrophils # (Manual) (1.4-6.5) K/uL Total Absolute Neuts (1.4-6.5) K/uL Lymphocytes # (Manual) (1.2-3.4) K/uL Total Abs Lymphocytes (1.2-3.4) K/uL Monocytes # (Manual) (0.11-0.59) K/uL Basophils # (Manual) (0-0.2) K/uL Metamyelocytes # (Man) (0-0) K/uL Toxic Vacuolation Echinocytes PT (9.0-12.0) Seconds INR (0.9-1.1) APTT (21.0-31.0) Seconds PTT Ratio VBG pH (7.36-7.41) VBG pCO2 (38-50) mmHg VBG pO2 mmHg VBG HCO3 mmol/L VBG O2 Saturation % VBG Base Excess mEq/L Barometric Pressure mm/Hg POC Sodium 123 L (135-144) mmol/L Sodium (136-145) mmol/L POC Potassium 7.5 H* (3.3-5.0) mmol/L Potassium (3.5-5.1) mmol/L POC Chloride 97 L (101-112) mmol/L Chloride (98-107) mmol/L Carbon Dioxide (21-32) mmol/L POC Total CO2 6 L* (24-31) mmol/L Anion Gap (3-11) POC Anion Gap 29.0 H (16-25) mmol/L POC BUN 58 H (7-18) mg/dl BUN (7-18) mg/dl Creatinine (0.6-1.4) mg/dl POC Creatinine 3.0 H (0.6-1.3) mg/dl Est Cr Clr Drug Dosing Est GFR ( Amer) ml/min Est GFR (Non-Af Amer) ml/min BUN/Creatinine Ratio (10-20) Glucose (70-99) mg/dl POC Glucose > 600 H* > 600 H* (70-99) mg/dl POC Glucose (other) > 700 H* (70-99) mg/dl Estimat Average Glucose mg/dl Hemoglobin A1c (4.5-5.6) % Lactate (0.4-2.0) mmol/L Calcium (8.5-10.1) mg/dl POC Ioniz Calcium Bart 1.05 L (1.12-1.32) mmol/l Phosphorus (2.5-4.9) mg/dl Magnesium (1.8-2.4) mg/dl Total Bilirubin (0.2-1) mg/dl AST (15-37) U/L ALT (12-78) U/L Alkaline Phosphatase (45-117) U/L Troponin I (0-0.045) ng/ml Total Protein (6.4-8.2) gm/dl Albumin (3.4-5.0) gm/dl Globulin (2.5-4.0) gm/dl Albumin/Globulin Ratio (0.9-2) Beta-Hydroxybutyric Acd (0.2-2.81) mg/dl Procalcitonin (0-0.5) ng/ml COVID-19 Eval Order SARS-CoV-2 (PCR) (Negative) 03/21/21 03/21/21 03/21/21 Range/Units 07:48 07:48 07:48 WBC 32.38 H* (4.8-10.8) K/uL RBC 3.49 L (4.7-6.1) M/uL Hgb 10.9 L (14.0-18.0) g/dL POC Hgb (14.0-18.0) g/dl Hct 34.1 L (42-52) % POC Hct (42-52) % MCV 97.7 (80-100) fL MCH 31.2 (25-34) pg MCHC 32.0 (32-36) g/dL Plt Count 287 (130-400) K/uL Neutrophils % (Manual) 82.6 % Lymphocytes % (Manual) 11.3 % Monocytes % (Manual) 4.3 % Basophils % (Manual) 0.9 % Metamyelocytes % (Man) 0.9 % Neutrophils # (Manual) 26.75 H (1.4-6.5) K/uL Total Absolute Neuts 26.75 H (1.4-6.5) K/uL Lymphocytes # (Manual) 3.66 H (1.2-3.4) K/uL Total Abs Lymphocytes 3.66 H (1.2-3.4) K/uL Monocytes # (Manual) 1.39 H (0.11-0.59) K/uL Basophils # (Manual) 0.29 H (0-0.2) K/uL Metamyelocytes # (Man) 0.29 H (0-0) K/uL Toxic Vacuolation 1+ Echinocytes 1+ PT 11.2 (9.0-12.0) Seconds INR 1.1 (0.9-1.1) APTT 36.7 H (21.0-31.0) Seconds PTT Ratio 1.4 VBG pH (7.36-7.41) VBG pCO2 (38-50) mmHg VBG pO2 mmHg VBG HCO3 mmol/L VBG O2 Saturation % VBG Base Excess mEq/L Barometric Pressure mm/Hg POC Sodium (135-144) mmol/L Sodium 126 L (136-145) mmol/L POC Potassium (3.3-5.0) mmol/L Potassium 7.7 H* (3.5-5.1) mmol/L POC Chloride (101-112) mmol/L Chloride 90 L (98-107) mmol/L Carbon Dioxide 4 L* (21-32) mmol/L POC Total CO2 (24-31) mmol/L Anion Gap 32.0 H (3-11) POC Anion Gap (16-25) mmol/L POC BUN (7-18) mg/dl BUN 56 H (7-18) mg/dl Creatinine 3.24 H (0.6-1.4) mg/dl POC Creatinine (0.6-1.3) mg/dl Est Cr Clr Drug Dosing Not Reportable Est GFR ( Amer) 22.0 ml/min Est GFR (Non-Af Amer) 19.0 ml/min BUN/Creatinine Ratio 17.4 (10-20) Glucose 1093 H* (70-99) mg/dl POC Glucose (70-99) mg/dl POC Glucose (other) (70-99) mg/dl Estimat Average Glucose mg/dl Hemoglobin A1c (4.5-5.6) % Lactate (0.4-2.0) mmol/L Calcium 7.4 L (8.5-10.1) mg/dl POC Ioniz Calcium Bart (1.12-1.32) mmol/l Phosphorus (2.5-4.9) mg/dl Magnesium 3.3 H (1.8-2.4) mg/dl Total Bilirubin 0.5 (0.2-1) mg/dl AST 54 H (15-37) U/L ALT 28 (12-78) U/L Alkaline Phosphatase 104 (45-117) U/L Troponin I 5.570 H* (0-0.045) ng/ml Total Protein 6.0 L (6.4-8.2) gm/dl Albumin 3.0 L (3.4-5.0) gm/dl Globulin 3.0 (2.5-4.0) gm/dl Albumin/Globulin Ratio 1.0 (0.9-2) Beta-Hydroxybutyric Acd 144.57 H (0.2-2.81) mg/dl Procalcitonin (0-0.5) ng/ml COVID-19 Eval Order SARS-CoV-2 (PCR) (Negative) 03/21/21 03/21/21 03/21/21 Range/Units 07:48 07:48 07:48 WBC (4.8-10.8) K/uL RBC (4.7-6.1) M/uL Hgb (14.0-18.0) g/dL POC Hgb (14.0-18.0) g/dl Hct (42-52) % POC Hct (42-52) % MCV (80-100) fL MCH (25-34) pg MCHC (32-36) g/dL Plt Count (130-400) K/uL Neutrophils % (Manual) % Lymphocytes % (Manual) % Monocytes % (Manual) % Basophils % (Manual) % Metamyelocytes % (Man) % Neutrophils # (Manual) (1.4-6.5) K/uL Total Absolute Neuts (1.4-6.5) K/uL Lymphocytes # (Manual) (1.2-3.4) K/uL Total Abs Lymphocytes (1.2-3.4) K/uL Monocytes # (Manual) (0.11-0.59) K/uL Basophils # (Manual) (0-0.2) K/uL Metamyelocytes # (Man) (0-0) K/uL Toxic Vacuolation Echinocytes PT (9.0-12.0) Seconds INR (0.9-1.1) APTT (21.0-31.0) Seconds PTT Ratio VBG pH 6.85 L (7.36-7.41) VBG pCO2 30 L (38-50) mmHg VBG pO2 56 mmHg VBG HCO3 5 mmol/L VBG O2 Saturation 78.0 % VBG Base Excess -27.6 mEq/L Barometric Pressure 731.7 mm/Hg POC Sodium (135-144) mmol/L Sodium (136-145) mmol/L POC Potassium (3.3-5.0) mmol/L Potassium (3.5-5.1) mmol/L POC Chloride (101-112) mmol/L Chloride (98-107) mmol/L Carbon Dioxide (21-32) mmol/L POC Total CO2 (24-31) mmol/L Anion Gap (3-11) POC Anion Gap (16-25) mmol/L POC BUN (7-18) mg/dl BUN (7-18) mg/dl Creatinine (0.6-1.4) mg/dl POC Creatinine (0.6-1.3) mg/dl Est Cr Clr Drug Dosing Est GFR ( Amer) ml/min Est GFR (Non-Af Amer) ml/min BUN/Creatinine Ratio (10-20) Glucose (70-99) mg/dl POC Glucose (70-99) mg/dl POC Glucose (other) (70-99) mg/dl Estimat Average Glucose mg/dl Hemoglobin A1c (4.5-5.6) % Lactate 5.3 H* (0.4-2.0) mmol/L Calcium (8.5-10.1) mg/dl POC Ioniz Calcium Bart (1.12-1.32) mmol/l Phosphorus (2.5-4.9) mg/dl Magnesium (1.8-2.4) mg/dl Total Bilirubin (0.2-1) mg/dl AST (15-37) U/L ALT (12-78) U/L Alkaline Phosphatase (45-117) U/L Troponin I (0-0.045) ng/ml Total Protein (6.4-8.2) gm/dl Albumin (3.4-5.0) gm/dl Globulin (2.5-4.0) gm/dl Albumin/Globulin Ratio (0.9-2) Beta-Hydroxybutyric Acd (0.2-2.81) mg/dl Procalcitonin 11.23 H (0-0.5) ng/ml COVID-19 Eval Order SARS-CoV-2 (PCR) (Negative) 03/21/21 03/21/21 03/21/21 Range/Units 07:48 07:48 08:48 WBC (4.8-10.8) K/uL RBC (4.7-6.1) M/uL Hgb (14.0-18.0) g/dL POC Hgb (14.0-18.0) g/dl Hct (42-52) % POC Hct (42-52) % MCV (80-100) fL MCH (25-34) pg MCHC (32-36) g/dL Plt Count (130-400) K/uL Neutrophils % (Manual) % Lymphocytes % (Manual) % Monocytes % (Manual) % Basophils % (Manual) % Metamyelocytes % (Man) % Neutrophils # (Manual) (1.4-6.5) K/uL Total Absolute Neuts (1.4-6.5) K/uL Lymphocytes # (Manual) (1.2-3.4) K/uL Total Abs Lymphocytes (1.2-3.4) K/uL Monocytes # (Manual) (0.11-0.59) K/uL Basophils # (Manual) (0-0.2) K/uL Metamyelocytes # (Man) (0-0) K/uL Toxic Vacuolation Echinocytes PT (9.0-12.0) Seconds INR (0.9-1.1) APTT (21.0-31.0) Seconds PTT Ratio VBG pH (7.36-7.41) VBG pCO2 (38-50) mmHg VBG pO2 mmHg VBG HCO3 mmol/L VBG O2 Saturation % VBG Base Excess mEq/L Barometric Pressure mm/Hg POC Sodium (135-144) mmol/L Sodium (136-145) mmol/L POC Potassium (3.3-5.0) mmol/L Potassium (3.5-5.1) mmol/L POC Chloride (101-112) mmol/L Chloride (98-107) mmol/L Carbon Dioxide (21-32) mmol/L POC Total CO2 (24-31) mmol/L Anion Gap (3-11) POC Anion Gap (16-25) mmol/L POC BUN (7-18) mg/dl BUN (7-18) mg/dl Creatinine (0.6-1.4) mg/dl POC Creatinine (0.6-1.3) mg/dl Est Cr Clr Drug Dosing Est GFR ( Amer) ml/min Est GFR (Non-Af Amer) ml/min BUN/Creatinine Ratio (10-20) Glucose (70-99) mg/dl POC Glucose > 600 H* (70-99) mg/dl POC Glucose (other) (70-99) mg/dl Estimat Average Glucose 169 mg/dl Hemoglobin A1c 7.5 H (4.5-5.6) % Lactate (0.4-2.0) mmol/L Calcium (8.5-10.1) mg/dl POC Ioniz Calcium Bart (1.12-1.32) mmol/l Phosphorus 12.3 H (2.5-4.9) mg/dl Magnesium (1.8-2.4) mg/dl Total Bilirubin (0.2-1) mg/dl AST (15-37) U/L ALT (12-78) U/L Alkaline Phosphatase (45-117) U/L Troponin I (0-0.045) ng/ml Total Protein (6.4-8.2) gm/dl Albumin (3.4-5.0) gm/dl Globulin (2.5-4.0) gm/dl Albumin/Globulin Ratio (0.9-2) Beta-Hydroxybutyric Acd (0.2-2.81) mg/dl Procalcitonin (0-0.5) ng/ml COVID-19 Eval Order SARS-CoV-2 (PCR) (Negative) 08/24/21 08/24/21 08/24/21 Range/Units 09:04 09:04 09:44 WBC (4.8-10.8) K/uL RBC (4.7-6.1) M/uL Hgb (14.0-18.0) g/dL POC Hgb (14.0-18.0) g/dl Hct (42-52) % POC Hct (42-52) % MCV (80-100) fL MCH (25-34) pg MCHC (32-36) g/dL Plt Count (130-400) K/uL Neutrophils % (Manual) % Lymphocytes % (Manual) % Monocytes % (Manual) % Basophils % (Manual) % Metamyelocytes % (Man) % Neutrophils # (Manual) (1.4-6.5) K/uL Total Absolute Neuts (1.4-6.5) K/uL Lymphocytes # (Manual) (1.2-3.4) K/uL Total Abs Lymphocytes (1.2-3.4) K/uL Monocytes # (Manual) (0.11-0.59) K/uL Basophils # (Manual) (0-0.2) K/uL Metamyelocytes # (Man) (0-0) K/uL Toxic Vacuolation Echinocytes PT (9.0-12.0) Seconds INR (0.9-1.1) APTT (21.0-31.0) Seconds PTT Ratio VBG pH (7.36-7.41) VBG pCO2 (38-50) mmHg VBG pO2 mmHg VBG HCO3 mmol/L VBG O2 Saturation % VBG Base Excess mEq/L Barometric Pressure mm/Hg POC Sodium (135-144) mmol/L Sodium (136-145) mmol/L POC Potassium (3.3-5.0) mmol/L Potassium (3.5-5.1) mmol/L POC Chloride (101-112) mmol/L Chloride (98-107) mmol/L Carbon Dioxide (21-32) mmol/L POC Total CO2 (24-31) mmol/L Anion Gap (3-11) POC Anion Gap (16-25) mmol/L POC BUN (7-18) mg/dl BUN (7-18) mg/dl Creatinine (0.6-1.4) mg/dl POC Creatinine (0.6-1.3) mg/dl Est Cr Clr Drug Dosing Est GFR ( Amer) ml/min Est GFR (Non-Af Amer) ml/min BUN/Creatinine Ratio (10-20) Glucose (70-99) mg/dl POC Glucose (70-99) mg/dl POC Glucose (other) (70-99) mg/dl Estimat Average Glucose mg/dl Hemoglobin A1c (4.5-5.6) % Lactate 4.4 H* (0.4-2.0) mmol/L Calcium (8.5-10.1) mg/dl POC Ioniz Calcium Bart (1.12-1.32) mmol/l Phosphorus (2.5-4.9) mg/dl Magnesium (1.8-2.4) mg/dl Total Bilirubin (0.2-1) mg/dl AST (15-37) U/L ALT (12-78) U/L Alkaline Phosphatase (45-117) U/L Troponin I (0-0.045) ng/ml Total Protein (6.4-8.2) gm/dl Albumin (3.4-5.0) gm/dl Globulin (2.5-4.0) gm/dl Albumin/Globulin Ratio (0.9-2) Beta-Hydroxybutyric Acd (0.2-2.81) mg/dl Procalcitonin (0-0.5) ng/ml COVID-19 Eval Order Covid19 at [facility] SARS-CoV-2 (PCR) NEGATIVE (Negative) 03/21/21 03/21/21 Range/Units 09:58 10:00 WBC (4.8-10.8) K/uL RBC (4.7-6.1) M/uL Hgb (14.0-18.0) g/dL POC Hgb (14.0-18.0) g/dl Hct (42-52) % POC Hct (42-52) % MCV (80-100) fL MCH (25-34) pg MCHC (32-36) g/dL Plt Count (130-400) K/uL Neutrophils % (Manual) % Lymphocytes % (Manual) % Monocytes % (Manual) % Basophils % (Manual) % Metamyelocytes % (Man) % Neutrophils # (Manual) (1.4-6.5) K/uL Total Absolute Neuts (1.4-6.5) K/uL Lymphocytes # (Manual) (1.2-3.4) K/uL Total Abs Lymphocytes (1.2-3.4) K/uL Monocytes # (Manual) (0.11-0.59) K/uL Basophils # (Manual) (0-0.2) K/uL Metamyelocytes # (Man) (0-0) K/uL Toxic Vacuolation Echinocytes PT (9.0-12.0) Seconds INR (0.9-1.1) APTT (21.0-31.0) Seconds PTT Ratio VBG pH (7.36-7.41) VBG pCO2 (38-50) mmHg VBG pO2 mmHg VBG HCO3 mmol/L VBG O2 Saturation % VBG Base Excess mEq/L Barometric Pressure mm/Hg POC Sodium (135-144) mmol/L Sodium (136-145) mmol/L POC Potassium (3.3-5.0) mmol/L Potassium (3.5-5.1) mmol/L POC Chloride (101-112) mmol/L Chloride (98-107) mmol/L Carbon Dioxide (21-32) mmol/L POC Total CO2 (24-31) mmol/L Anion Gap (3-11) POC Anion Gap (16-25) mmol/L POC BUN (7-18) mg/dl BUN (7-18) mg/dl Creatinine (0.6-1.4) mg/dl POC Creatinine (0.6-1.3) mg/dl Est Cr Clr Drug Dosing Est GFR ( Amer) ml/min Est GFR (Non-Af Amer) ml/min BUN/Creatinine Ratio (10-20) Glucose 969 H* (70-99) mg/dl POC Glucose > 600 H* (70-99) mg/dl POC Glucose (other) (70-99) mg/dl Estimat Average Glucose mg/dl Hemoglobin A1c (4.5-5.6) % Lactate (0.4-2.0) mmol/L Calcium (8.5-10.1) mg/dl POC Ioniz Calcium Bart (1.12-1.32) mmol/l Phosphorus (2.5-4.9) mg/dl Magnesium (1.8-2.4) mg/dl Total Bilirubin (0.2-1) mg/dl AST (15-37) U/L ALT (12-78) U/L Alkaline Phosphatase (45-117) U/L Troponin I (0-0.045) ng/ml Total Protein (6.4-8.2) gm/dl Albumin (3.4-5.0) gm/dl Globulin (2.5-4.0) gm/dl Albumin/Globulin Ratio (0.9-2) Beta-Hydroxybutyric Acd (0.2-2.81) mg/dl Procalcitonin (0-0.5) ng/ml COVID-19 Eval Order SARS-CoV-2 (PCR) (Negative) Administered Medications Insulin Human Regular 250 (units/ Sodium Chloride) 250 mls @ 25 mls/hr IV .Q10H [facility]; Protocol Stop: 04/20/21 08:29 Last Titration: 03/21/21 15:17 Dose: 20.8 units/hr, 20.8 mls/hr Documented by: [id number] Cosigned by: [id number] Titration: 03/21/21 14:22 Dose: 17.3 units/hr, 17.3 mls/hr Documented by: [id number] Cosigned by: [id number] Titration: 03/21/21 13:16 Dose: 14.4 units/hr, 14.4 mls/hr Documented by: [id number] Cosigned by: [id number] Titration: 03/21/21 11:23 Dose: 12 units/hr, 12 mls/hr Documented by: [id number] Cosigned by: [id number] Admin: 03/21/21 11:23 Dose: 12 units/hr, 12 mls/hr Documented by: [id number] Cosigned by: [id number] Titration: 03/21/21 10:39 Dose: 12 units/hr, 12 mls/hr Documented by: [id number] Cosigned by: [id number] Titration: 03/21/21 09:10 Dose: 10 units/hr, 10 mls/hr Documented by: [id number] Cosigned by: [id number] Admin: 03/21/21 08:57 Dose: 3.8 units/hr, 3.8 mls/hr Documented by: [id number] Cosigned by: [id number] Parenteral Electrolytes (Normosol-R) 1,000 mls @ 140 mls/hr IV .Q7H9M [facility] Stop: 04/20/21 16:14 Last Admin: 03/21/21 15:20 Dose: 140 mls/hr Documented by: [id number] Norepinephrine Bitartrate (Levophed/D5w) 8 mg in 508 mls @ 11.453 mls/hr IV .Q24H [facility]; Protocol Stop: 04/20/21 11:59 Last Titration: 03/21/21 14:22 Dose: 0.03 mcg/kg/min, 11.5 mls/hr Documented by: [id number] Admin: 03/21/21 12:08 Dose: 0.05 mcg/kg/min, 19.1 mls/hr Documented by: [id number] Cosigned by: [id number] Piperacillin Sod/Tazobactam (Sod 4.5 gm/ Dextrose) 120 mls @ 30 mls/hr IV Q8H [facility]; Protocol Stop: 03/31/21 08:59 Last Admin: 03/21/21 14:13 Dose: 30 mls/hr Documented by: [id number] Insulin Aspart (Insulin Aspart 100 Units/Ml 3 Ml Pen) 0 units SC ACHS [facility] Stop: 04/20/21 11:29 Last Admin: 03/21/21 12:16 Dose: Not Given Documented by: [id number] Discontinued Medications Albuterol (Albut/Ipratrop 3mg/0.5mg Neb 3 Ml Vial) 12 ml NEB ONE ONE Stop: 03/21/21 07:49 Last Admin: 03/21/21 08:00 Dose: 12 ml Documented by: [id number] Calcium Gluconate (Calcium Gluconate 10% 10 Ml Vial) 1,000 mg IV ONE ONE Stop: 03/21/21 07:58 Last Admin: 03/21/21 08:03 Dose: 1,000 mg Documented by: [id number] Calcium Gluconate (Calcium Gluconate 1000 Mg/60 Ml Nss) Confirm Administered Dose 1,000 mg IV .STK-MED ONE Stop: 03/21/21 08:01 Last Admin: 03/21/21 08:05 Dose: Not Given Documented by: [id number] Fentanyl Citrate (Fentanyl Citrate 100 Mcg/2 Ml Vial) 50 mcg IV Q15M PRN PRN Reason: Pain Stop: 04/04/21 09:31 Last Admin: 03/21/21 09:36 Dose: 50 mcg Documented by: [id number] Sodium Chloride (Nss 1000ml) 1,000 mls @ 999 mls/hr IV .Q1H1M ONE Stop: 03/21/21 08:43 Last Infusion: 03/21/21 09:04 Dose: 0 mls/hr Documented by: [id number] Admin: 03/21/21 07:49 Dose: 999 mls/hr Documented by: [id number] Calcium Chloride 1,000 mg/ (Sodium Chloride) 60 mls @ 240 mls/hr IV NOW STA Stop: 03/21/21 08:02 Last Admin: 03/21/21 08:04 Dose: Not Given Documented by: [id number] Sodium Chloride (Nss 1000ml) 1,000 mls @ 999 mls/hr IV .Q1H1M ONE Stop: 03/21/21 08:53 Last Infusion: 03/21/21 09:04 Dose: 0 mls/hr Documented by: [id number] Admin: 03/21/21 08:03 Dose: 999 mls/hr Documented by: [id number] Piperacillin Sod/Tazobactam Sod (Zosyn) 4.5 gm in 120 mls @ 240 mls/hr IV NOW ONE Stop: 03/21/21 09:10 Last Infusion: 03/21/21 10:02 Dose: 0 mls/hr Documented by: [id number] Admin: 03/21/21 09:06 Dose: 240 mls/hr Documented by: [id number] Lactated Ringer's (Lr) 1,000 mls @ 999 mls/hr IV .Q1H1M ONE Stop: 03/21/21 10:00 Last Infusion: 03/21/21 11:24 Dose: 0 mls/hr Documented by: [id number] Admin: 03/21/21 09:03 Dose: 999 mls/hr Documented by: [id number] Parenteral Electrolytes (Normosol-R) 1,000 mls @ 999 mls/hr IV .Q1H1M [facility] Stop: 03/21/21 14:32 Last Admin: 03/21/21 12:11 Dose: 250 mls/hr Documented by: [id number] Insulin Human Regular (Novolin-R Insulin Per Unit Charge) 10 units IV NOW STA Stop: 03/21/21 07:49 Last Admin: 03/21/21 07:57 Dose: 10 units Documented by: [id number] Cosigned by: [id number] Miscellaneous (Stat Iv Infusion Titration Per Protocol) 1 ea N/A NOW STA Stop: 03/21/21 08:24 Last Admin: 03/21/21 09:07 Dose: 1 ea Documented by: [id number] Miscellaneous (Dka Goal Range 150-250 Mg/Dl) 1 ea N/A ONE ONE Stop: 03/21/21 08:24 Last Admin: 03/21/21 09:07 Dose: 1 ea Documented by: [id number] Miscellaneous (Icu Severe Hyperglycemia Protocol) 1 ea N/A ONE ONE Stop: 03/21/21 11:20 Last Admin: 03/21/21 13:01 Dose: Not Given Documented by: [id number] Ondansetron HCl (Ondansetron Inj 2 Mg/Ml 2 Ml Vial) 4 mg IV NOW STA Stop: 03/21/21 09:33 Last Admin: 03/21/21 09:36 Dose: 4 mg Documented by: [id number] Sodium Bicarbonate (Sodium Bicarb 8.4% Inj 50 Meq/50 Ml Syr) Confirm Administered Dose 100 meq IV .STK-MED ONE Stop: 03/21/21 10:09 Last Admin: 03/21/21 10:14 Dose: 100 meq Documented by: [id number] Sodium Bicarbonate (Sodium Bicarb 8.4% Inj 50 Meq/50 Ml Syr) Confirm Administered Dose 100 meq IV .STK-MED ONE Stop: 03/21/21 12:41 Last Admin: 03/21/21 12:50 Dose: 100 meq Documented by: [id number] Sodium Bicarbonate (Sodium Bicarb 8.4% Inj 50 Meq/50 Ml Syr) 100 meq IV NOW STA Stop: 03/21/21 12:44 Last Admin: 03/21/21 13:02 Dose: 100 meq Documented by: [id number] Imaging Data Radiologist's Impression: Abdomen/Pelvis CT 03/21/21 07:39 CT SCAN OF THE ABDOMEN AND PELVIS WITHOUT IV CONTRAST CLINICAL HISTORY: Change in mental status. COMPARISON STUDY: No priors. TECHNIQUE: CT scan of the abdomen and pelvis is performed from the lung bases to the proximal femora. Images are reviewed in the axial, sagittal, and coronal planes. IV contrast was not administered for this examination. Note that the examination was performed in suboptimal fashion without oral and IV contrast. There is also streak and motion artifact. A dose lowering technique was utilized adhering to the principles of ALARA. FINDINGS: Lung bases: The heart is enlarged and without pericardial effusion. The coronary arteries are densely calcified. Evaluation of the lung bases is significantly degraded by motion. No airspace consolidation or pleural effusion is identified. Liver: The unenhanced liver is enlarged, measuring over 18 cm in length. The liver demonstrates diffusely diminished attenuation consistent with severe hepatic steatosis. There is no intrahepatic biliary ductal dilatation. Portal venous gas is noted. Gallbladder: Surgically absent noting clips in the gallbladder fossa. Spleen: Normal in size and attenuation. Pancreas: The unenhanced pancreas is atrophic and grossly unremarkable. Adrenal glands: Unremarkable. Kidneys: The unenhanced kidneys are normal in size and without hydronephrosis. There are no renal calculi identified. There is no evidence of contour deforming renal mass lesion. Abdominal vasculature: The abdominal aorta is normal in course and caliber noting advanced atherosclerotic calcification. Stomach and bowel: Postoperative changes consistent with a history of Rios-en-Y gastric bypass surgery. The small bowel loops are dilated with air-fluid levels, and measure up to 3.5 cm in diameter. There is extensive pneumatosis intestinalis throughout loops of small bowel in the midabdomen as well as mesenteric venous gas and surrounding infiltration. No transition point is identified and there is no definite bowel obstruction. Wall thickening is noted throughout the affected small bowel loops. The appendix is well-visualized and normal. Peritoneum: There is no intraperitoneal free air or abdominal ascites. Lymphadenopathy: None. Pelvic viscera: The bladder is decompressed around a Salinas catheter and not well evaluated. Foci of intraluminal gas are likely related to instrumentation. The uterus is surgically absent. No adnexal lesion is seen. Skeletal structures: The skeletal structures are osteopenic. There is lumbosacral spondylosis with evidence of L3-L4 spinal fusion. No lytic or blastic lesions are seen. There are healed right pubic ring fractures. IMPRESSION: 1. Significantly suboptimal examination without IV contrast. The examination is also severely compromised by streak and motion artifact 2. There are numerous mildly dilated loops of small bowel with extensive pneumatosis intestinalis, mesenteric venous gas, and portal venous gas. These findings are highly concerning for small bowel ischemia. 3. Small bowel dilatation is nonspecific. This could be related to an ileus or possibly a bowel obstruction. No discrete transition point is identified. 4. No intraperitoneal free air is clearly seen. 5. There is postoperative change from Rios-en-Y gastric bypass surgery. 6. Cardiomegaly. 7. Hepatomegaly and severe hepatic steatosis. 8. Additional findings as above. ACT 112: Negative or not required by law. Electronically signed by: Cisco Torres M.D. 03/21/2021 9:06 AM Chest X-Ray 03/21/21 07:39 XR chest 1V portable HISTORY: 65 years-old Male SEPSIS acute sepsis COMPARISON: Chest radiograph fourth 15/10/2012 TECHNIQUE: Portable AP view of the chest FINDINGS: Cardiac silhouette is enlarged, unchanged. Calcified plaque of the thoracic a isis. No pneumothorax, pleural effusion, airspace consolidation or overt pulmonary edema. Degenerative changes of the shoulders and spine. Right shoulder rotator cuff calcific tendinosis. Cholecystectomy. IMPRESSION: No acute process. ACT 112: Negative or not required by law. The above report was generated using voice recognition software. It may contain grammatical, syntax or spelling errors. Electronically signed by: Liu Tang M.D. 03/21/2021 8:[address] 03/21/21 07:[address] DOSE: HISTORY: Altered mental status. TECHNIQUE: Multiaxial CT images of the head were performed without the use of intravenous contrast. Automated exposure control was utilized for this study. A dose lowering technique was utilized adhering to the principles of ALARA. Comparison: Head CT 06/22/2017. Findings: Small retention cyst within the left maxillary sinus. No fluid levels within the paranasal sinuses. The mastoid air cells are clear. The calvarium and skull base are intact. The ventricles and sulci are within normal limits. There is no mass, hematoma, midline shift, or acute infarct. Impression: No acute intracranial abnormality. ACT 112: Negative or not required by law. Electronically signed by: Tapan De Leon M.D. 03/21/2021 8:[address] 03/21/21 07:56 CT cervical spine wo con CT DOSE: 4308.17 mGy.cm CLINICAL HISTORY: 65 years-old Male with ams. Acutely altered mental status COMPARISON: Head CT of same day TECHNIQUE: Multiple axial CT images of the cervical spine were obtained without contrast. A dose lowering technique was utilized adhering to the principles of ALARA. FINDINGS: Nuchal ligament calcifications. Moderate C1-C2 degeneration. Moderate multilevel facet arthrosis with mild spondylitic spurring and intervertebral disc space narrowing. Small posterior disc osteophyte complex at C2-C3. No acute fracture or subluxation. Study is motion degraded. Lung apices are clear. No pneumothorax. No prevertebral edema. Calcified plaque of the carotid arteries. IMPRESSION: No acute cervical spine fracture or subluxation. ACT 112: Negative or not required by law. The above report was generated using voice recognition software. It may contain grammatical, syntax or spelling errors. Electronically signed by: Liu Tang M.D. 03/21/2021 8:49 AM Discharge Plan Visit Data Chief Complaint: Hyperglycemia Stated Complaint: Hyperglycemia ED Provider: Bridger Ragland Discharge Problem: DKA (diabetic ketoacidosis), Acute renal failure, Acute hyperkalemia, Encephalopathy, Acute intestinal ischemia, Acute dehydration, Vomiting, Contusion of flank, Acute non-ST elevation myocardial infarction (NSTEMI) Patient Disposition: Admitted As Inpatient Condition: Critical Discharge Instructions Interventions: ED Discharge Assessment Last Done: 03/21/21 10:41
[2021-03-21] MEDS ORDERED: STAT IV Infusion **Titration per Protocol STA ×5 (08:23→23:59)
[2021-03-21] MEDS ORDERED: DEXTROSE 50% 50 ML SYRINGE IV PRN (08:23)
[2021-03-21] MEDS ORDERED: GLUCOSE 10 TABS/TUBE PO PRN (08:23)
[2021-03-21] MEDS ORDERED: GLUCOSE 40% GEL 15 GM TUBE PO PRN (08:23)
[2021-03-21] MEDS ORDERED: GLUCAGON FOR INJ 1 MG VIAL SQ PRN (08:23)
[2021-03-21] MEDS ORDERED: CARBOHYDRATES FOR HYPOGLYCEMIA PO PRN (08:23)
[2021-03-21] MEDS ORDERED: DKA GOAL RANGE 150-250 mg/dl ONE (08:23)
[2021-03-21 08:37] LABS: Hematocrit (blood only) 34.1 % (42-52); Hemoglobin 10.9 g/dL (14.0-18.0); Mean Corpuscular Hemoglobin 31.2 pg (25-34); Mean Corpuscular Volume 97.7 fL (80-100); Platelet Count 287 K/uL (130-400); Red Blood Count 3.49 M/uL (4.7-6.1); White Blood Count 32.38 K/uL (4.8-10.8)
[2021-03-21 08:38] LABS: Alanine Aminotransferase 28 U/L (12-78); Alkaline Phosphatase 104 U/L (45-117); Aspartate Aminotransferase 54 U/L (15-37); BUN Creatinine Ratio 17.4 (10-20); Bilirubin,Total 0.5 mg/dl (0.2-1); Blood Urea Nitrogen 56 mg/dl (7-18); Calcium 7.4 mg/dl (8.5-10.1); Carbon Dioxide 4 mmol/L (21-32); Chloride 90 mmol/L (98-107); Glucose 1093 mg/dl (70-99); Magnesium 3.3 mg/dl (1.8-2.4); Potassium 7.7 mmol/L (3.5-5.1); Sodium 126 mmol/L (136-145)
[2021-03-21] MEDS ORDERED: PIPERACILL/TAZOBAC CONSULT ACTIVE PRN ×2 (08:41→11:40)
[2021-03-21] MEDS ORDERED: PIPERACILLIN/TAZOBACTAM 4.5 GM/120 ML BAG IV ONE (08:41)
[2021-03-21 08:42] LABS: ALC (manual) 3.66 K/uL (1.2-3.4); ANC (manual) 26.75 K/uL (1.4-6.5); Basophils # (manual) 0.29 K/uL (0-0.2); Basophils % (manual) 0.9 %; Echinocytes 1+; Lymphocytes # (manual) 3.66 K/uL (1.2-3.4); Lymphocytes % (manual) 11.3 %; Metamyelocytes # (manual) 0.29 K/uL (0-0); Metamyelocytes % (manual) 0.9 %; Monocytes # (manual) 1.39 K/uL (0.11-0.59); Monocytes % (manual) 4.3 %; Neutrophils # (manual) 26.75 K/uL (1.4-6.5); Neutrophils % (manual) 82.6 %; Toxic Vacuolation 1+
--- NOTE | 2021-03-21 08:50 | CT Scan Report ---
CT cervical spine wo con CT DOSE: 4308.17 mGy.cm CLINICAL HISTORY: 65 years-old Male with ams. Acutely altered mental status COMPARISON: Head CT of same day TECHNIQUE: Multiple axial CT images of the cervical spine were obtained without contrast. A dose low ering technique was utilized adhering to the principles of ALARA. FINDINGS: Nuchal ligament calcifications. Moderate C1-C2 degeneration. Moderate multilevel facet arthrosis with mild spondylitic spurring and intervertebral disc space narrowing. Small posterior disc osteophyte c omplex at C2-C3. No acute fracture or subluxation. Study is motion degraded. Lung apices are clear. No pneumothorax. No prevertebral edema. Calcified plaque of the carotid arteri es. IMPRESSION: No acute cervical spine fracture or subluxation. ACT 112: Negative or not required by law. The above report was generated using voice recognition software. It may contain grammatical, syntax o r spelling errors. Electronically signed by: Liu Tang M.D. 03/21/2021 8:49 AM
--- NOTE | 2021-03-21 08:54 | CT Scan Report ---
HEAD CT NONCONTRAST CT DOSE: HISTORY: Altered mental status. TECHNIQUE: Multiaxial CT images of the head were performed without the use of intravenous contrast. A utomated exposure control was utilized for this study. A dose lowering technique was utilized adheri ng to the principles of ALARA. Comparison: Head CT 06/22/2017. Findings: Small retention cyst within the left maxillary sinus. No fluid levels within the paranasal sinuses. The mastoid air cells are clear. The calvarium and skull base are intact. The ventricles and sulci are within normal limits. There is no mass, hematoma, midline shift, or acute infarct. Impression: No acute intracranial abnormality. ACT 112: Negative or not required by law. Electronically signed by: Tapan De Leon M.D. 03/21/2021 8:52 AM
[2021-03-21] MEDS: INSULIN REGULAR 250 UNITS in SODIUM CHLORIDE 0.9% 247.5 ML IV SCH ×3 (08:57→22:54)
[2021-03-21] MEDS ORDERED: LACTATED RINGER'S 1,000 ML IV ONE (09:00)
[2021-03-21 09:07] LABS: Estimated Average Glucose 169 mg/dl; Hemoglobin A1C 7.5 % (4.5-5.6)
--- NOTE | 2021-03-21 09:07 | CT Scan Report ---
CT SCAN OF THE ABDOMEN AND PELVIS WITHOUT IV CONTRAST CLINICAL HISTORY: Change in mental status. COMPARISON STUDY: No priors. TECHNIQUE: CT scan of the abdomen and pelvis is performed from the lung bases to the proximal femora. Images are reviewed in the axial, sagittal, and coronal planes. IV contrast was not administered for this examination. Note that the examination was performed in suboptimal fashion without oral and IV contrast. There is also streak and motion artifact. A dose lowering technique was utilized adhering t o the principles of ALARA. FINDINGS: Lung bases: The heart is enlarged and without pericardial effusion. The coronary arteries are densely calcified. Evaluation of the lung bases is significantly degraded by motion. No airspace consolidati on or pleural effusion is identified. Liver: The unenhanced liver is enlarged, measuring over 18 cm in length. The liver demonstrates diffu sely diminished attenuation consistent with severe hepatic steatosis. There is no intrahepatic biliar y ductal dilatation. Portal venous gas is noted. Gallbladder: Surgically absent noting clips in the gallbladder fossa. Spleen: Normal in size and attenuation. Pancreas: The unenhanced pancreas is atrophic and grossly unremarkable. Adrenal glands: Unremarkable. Kidneys: The unenhanced kidneys are normal in size and without hydronephrosis. There are no renal estrella culi identified. There is no evidence of contour deforming renal mass lesion. Abdominal vasculature: The abdominal aorta is normal in course and caliber noting advanced atheroscle rotic calcification. Stomach and bowel: Postoperative changes consistent with a history of Rios-en-Y gastric bypass surger y. The small bowel loops are dilated with air-fluid levels, and measure up to 3.5 cm in diameter. The re is extensive pneumatosis intestinalis throughout loops of small bowel in the midabdomen as well as mesenteric venous gas and surrounding infiltration. No transition point is identified and there is n o definite bowel obstruction. Wall thickening is noted throughout the affected small bowel loops. The appendix is well-visualized and normal. Peritoneum: There is no intraperitoneal free air or abdominal ascites. Lymphadenopathy: None. Pelvic viscera: The bladder is decompressed around a Salinas catheter and not well evaluated. Foci of i ntraluminal gas are likely related to instrumentation. The uterus is surgically absent. No adnexal le yoni is seen. Skeletal structures: The skeletal structures are osteopenic. There is lumbosacral spondylosis with ev idence of L3-L4 spinal fusion. No lytic or blastic lesions are seen. There are healed right pubic rin g fractures. IMPRESSION: 1. Significantly suboptimal examination without IV contrast. The examination is also severely comprom ised by streak and motion artifact 2. There are numerous mildly dilated loops of small bowel with extensive pneumatosis intestinalis, me senteric venous gas, and portal venous gas. These findings are highly concerning for small bowel isch emia. 3. Small bowel dilatation is nonspecific. This could be related to an ileus or possibly a bowel obstr uction. No discrete transition point is identified. 4. No intraperitoneal free air is clearly seen. 5. There is postoperative change from Rios-en-Y gastric bypass surgery. 6. Cardiomegaly. 7. Hepatomegaly and severe hepatic steatosis. 8. Additional findings as above. ACT 112: Negative or not required by law. Electronically signed by: Cisco Torres M.D. 03/21/2021 9:06 AM
[2021-03-21 09:09] LABS: Beta-Hydroxybutyrate 144.57 mg/dl (0.2-2.81)
[2021-03-21] MEDS ORDERED: ONDANSETRON INJ 2 MG/ML 2 ML VIAL IV STA (09:32)
[2021-03-21] MEDS ORDERED: fentaNYL citrate 100 MCG/2 ML VIAL IV PRN (09:32)
[2021-03-21 09:34] LABS: Appearance Urine Slightly Cloudy (Clear); Bilirubin Urine 1+ (Negative); Blood Urine 3+ (Negative); Color Urine Yellow; Glucose Urine UA 2+ (Negative); Ketones Urine 2+ (Negative); Leukocyte Esterase Urine Negative (Negative); Nitrite Urine Negative (Negative); Protein Urine 3+ (Negative); Specific Gravity Urine 1.025 (1.000-1.030); Urobilinogen Urine Negative (Negative)
[2021-03-21 09:46] LABS: Bacteria Urine 1+ (Negative)
--- NOTE | 2021-03-21 09:49 | Emergency Department Note ---
General (ED) Blank Date of Service March 21, 2021 ED Visit Note I personally saw the patient. Patient's case was discussed with Dr. Ragland, ED attending, and I participated in MDM. Please see attending documentation for full details. Resident Activity Tracking Resident Involvement: Resident Care Provided Care Provided: Adult ED
[2021-03-21] MEDS ORDERED: SODIUM BICARB 8.4% INJ 50 MEQ/50 ML SYR IV ONE ×3 (10:08→17:38)
--- NOTE | 2021-03-21 10:24 | History & Physical Report ---
Date of Service March 21, 2021 Assessment & Plan (1) Acute metabolic encephalopathy: (2) Severe sepsis: (3) DKA, type 1: (4) RONDA (acute kidney injury): (5) Hyperkalemia: (6) Small bowel ischemia: (7) Lactic acid acidosis: (8) Hypermagnesemia: (9) Hyperphosphatemia: (10) Anemia: (11) Gastric bypass status for obesity: Plan: This is a 65-year-old male who has significant past medical history of type 1 diabetes mellitus, history of PE, HTN, HLD, History of Rios-en-Y, history of venous thrombosis, diabetic polyneuropathy, anxiety who presents to ED for altered mental status x1 day. Patient's care was coordinated with the ED provider, roll operator Dr. Guillaume, Straightening Roll Operator Dr. Del Real and Surgeon Dr. Orantes. Patient with severe volume depletion in setting of severe DKA and a type I insulin pump dependent diabetic. Per CMS guidelines he meets for severe sepsis in setting of leukocytosis, lactic acidosis, RONDA, elevated procalcitonin and CT Abd pelvis findings concerning for small bowel ischemia. Patient admitted to ICU under care of roll operator Dr. Guillaume Continue resuscitation with IV fluid, insulin drip Continue broad-spectrum antibiotics with IV Zosyn, blood and urine cultures pending Seen and evaluated by general surgery -plan for exploratory surgery given concern for small bowel ischemia once resuscitated further serial labs bmp, vbg, lactic acid Stating levophed gtt for pressor support continue monitoring resp status - tachypnea in setting of compensation for severe metabolic derangements RONDA in setting of volume depletion and severe dka along with electrolyte abn - K improving from 7 to 5.8, pH 6.85 to 7. Central L IJ placed echo pending, cycle trops VTE ppx: hold 2/2 to anticipated surgery Dispo: ICU- further management per roll operator consultation FULL CODE PCP: Dov Padron Pt was seen and examined in collaboration with Dr. Glover, please see addendum History of Present Illness Chief Complaint: AMS x 1 day. Primary Care Provider: Nicolas Padron, DO This is a 65-year-old male who has significant past medical history of type 1 diabetes mellitus, history of PE, HTN, HLD, History of Rios-en-Y, history of venous thrombosis, diabetic polyneuropathy, anxiety who presents to ED for altered mental status x1 day. is at bedside. She states he fell on Saturday and complained of back pain. Due to back pain and feeling unwell he spent all day yesterday in bed. He did have nausea and vomiting but no other complaints per . She slept on the couch and when she went to check on him this morning he was found on the floor and completely altered. She called EMS. Patient unable to give history secondary to cognitive status. He does have history of type 1 diabetes managed on insulin pump. EMS found him to be significantly hyperglycemic. In ED patient was found to be in severe DKA with presenting blood sugar greater than 1000. His initial VBG pH was 6.85 with a CO2 of 30. He met severe sepsis criteria secondary to leukocytosis 32.38k, lactic acidosis 5.3, & RONDA with BUN [address] abdomen pelvis concerning for small intestine ischemia with pneumatosis intestinalis. He received a total of 3 L of IV fluid prior to my evaluation, blood and urine cultures were obtained, started empirically on IV Zosyn and received 14 unit bolus of IV insulin and started on insulin drip. He also received calcium gluconate for hyperkalemia. Allergies Allergy/AdvReac Type Severity Reaction Status Date / Time nortriptyline Allergy Unknown ITCHING Verified 03/21/21 08:53 hydromorphone [From Dilaudid] AdvReac Unknown Nausea/Vomi Verified 03/21/21 08:53 ting Home Medications Medication Instructions Recorded Confirmed Type blood sugar diagnostic (Contour #10 ea 05/20/19 11/18/20 History Next Test Strips) blood-glucose sensor (Dexcom G6 #3 ea 07/31/19 02/17/21 History Sensor) cyanocobalamin (vitamin B-12) 1,000 mcg PO QAM 02/03/20 03/21/21 History 1,000 mcg capsule metoprolol succinate 25 mg 25 mg PO QAM 11/18/20 03/21/21 History tablet,extended release 24 hr (Toprol XL) insulin lispro 100 unit/mL See Rx Instructions SQ .COMPLEX 02/23/21 03/21/21 Rx subcutaneous solution (Humalog #50 ml U-100 Insulin) amlodipine 5 mg tablet (Norvasc) 5 mg PO QAM 03/21/21 03/21/21 History cholecalciferol (vitamin D3) 50 2,000 units PO QAM 03/21/21 03/21/21 History mcg (2,000 unit) capsule (Vitamin D3) lisinopril 40 mg tablet (Zestril) 40 mg PO QAM 03/21/21 03/21/21 History spironolactone 25 mg tablet 25 mg PO BID 03/21/21 03/21/21 History (Aldactone) Past Med/Surg History Medical History (Updated 03/21/21 @ 16:31 by Bridger Ragland DO) COPD (chronic obstructive pulmonary disease) Diabetes mellitus with diabetic polyneuropathy Diabetes type 1, controlled Diabetic peripheral neuropathy associated with type 1 diabetes mellitus History of pulmonary embolism Hx of recurrent vertebral fractures Hypertension Vitamin D deficiency Surgical History Gastric bypass status for obesity History of back surgery History of carpal tunnel release of both wrists Hx of knee surgery Hx of shoulder surgery S/P cholecystectomy Ulnar nerve entrapment corrected Family History Mother Alzheimer disease Hypertension Brother Diabetes A-fib Father Bone cancer Social History Smoking Status: Never smoker Hx Alcohol Use: Yes Alcohol Intake Frequency Comment: Occasional Preferred Language: Azeri Communication Ability: Unable Beliefs That Will Affect Care: None marital status: Current Living Situation: Spouse current occupational status: retired Review of Systems Review of Systems: Unobtainable due to cognitive status Physical Exam Physical Exam: Constitutional: Critically ill male, +acute distress, vitals as above, confused, alerted Head: Normocephalic, Atraumatic Eyes: PERRL, conjunctivae erythematous, anicteric sclerae ENMT: external ear and nose normal, oropharynx normal, false dentition noted Neck: trachea midline, no thyromegaly normal visual inspection Respiratory:increased resp effort, lungs clear to auscultation, no wheeze, rales, rhonchi. no accessory muscle use Cardiovascular: RRR, no murmur, no edema, cool peripheral ext Vessels: no JVD or carotid bruit Chest: normal inspection of chest Abdomen: normal bowel sounds, soft, + diffuse tenderness to palpation, Musculoskeletal: no cyanosis, moves all 4 ext Skin: no rashes, warm and dry normal turgor Neurologic: PERRL, EOMI, accommodation nl, no face palsy, no dysarthria CN's II-XI intact bilaterally and moves all extremities Psychiatric: not alert, confused, euthymic affect : holcomb draining yellow urine Results & Data Results & Data ([facility]) Vital Signs (Past 12 Hours) Vital Signs Temp Pulse Pulse Resp BP Pulse Ox 03/21/21 09:51 62 26 H 97/50 L 100 03/21/21 09:45 62 30 H 111/45 L 100 03/21/21 09:30 64 30 H 103/51 L 97 03/21/21 09:16 71 20 83/56 L 99 03/21/21 09:01 79 30 H 114/51 L 100 03/21/21 08:49 67 24 03/21/21 08:18 140 H 27 H 100 03/21/21 08:05 68 20 100 03/21/21 08:02 60 22 88/42 L 100 03/21/21 07:45 61 22 78/60 L 95 03/21/21 07:40 34.5 C L 68 27 H 91/47 L 96 Diagnostic Findings Abdomen/Pelvis CT 03/21/21 07:39 CT SCAN OF THE ABDOMEN AND PELVIS WITHOUT IV CONTRAST CLINICAL HISTORY: Change in mental status. COMPARISON STUDY: No priors. TECHNIQUE: CT scan of the abdomen and pelvis is performed from the lung bases to the proximal femora. Images are reviewed in the axial, sagittal, and coronal planes. IV contrast was not administered for this examination. Note that the examination was performed in suboptimal fashion without oral and IV contrast. There is also streak and motion artifact. A dose lowering technique was utilized adhering to the principles of ALARA. FINDINGS: Lung bases: The heart is enlarged and without pericardial effusion. The coronary arteries are densely calcified. Evaluation of the lung bases is significantly degraded by motion. No airspace consolidation or pleural effusion is identified. Liver: The unenhanced liver is enlarged, measuring over 18 cm in length. The liver demonstrates diffusely diminished attenuation consistent with severe hepatic steatosis. There is no intrahepatic biliary ductal dilatation. Portal venous gas is noted. Gallbladder: Surgically absent noting clips in the gallbladder fossa. Spleen: Normal in size and attenuation. Pancreas: The unenhanced pancreas is atrophic and grossly unremarkable. Adrenal glands: Unremarkable. Kidneys: The unenhanced kidneys are normal in size and without hydronephrosis. There are no renal calculi identified. There is no evidence of contour deforming renal mass lesion. Abdominal vasculature: The abdominal aorta is normal in course and caliber noting advanced atherosclerotic calcification. Stomach and bowel: Postoperative changes consistent with a history of Rios-en-Y gastric bypass surgery. The small bowel loops are dilated with air-fluid levels, and measure up to 3.5 cm in diameter. There is extensive pneumatosis intestinali s throughout loops of small bowel in the midabdomen as well as mesenteric venous gas and surrounding infiltration. No transition point is identified and there is no definite bowel obstruction. Wall thickening is noted throughout the affected small bowel loops. The appendix is well-visualized and normal. Peritoneum: There is no intraperitoneal free air or abdominal ascites. Lymphadenopathy: None. Pelvic viscera: The bladder is decompressed around a Holcomb catheter and not well evaluated. Foci of intraluminal gas are likely related to instrumentation. The uterus is surgically absent. No adnexal lesion is seen. Skeletal structures: The skeletal structures are osteopenic. There is lumbosacral spondylosis with evidence of L3-L4 spinal fusion. No lytic or blastic lesions are seen. There are healed right pubic ring fractures. IMPRESSION: 1. Significantly suboptimal examination without IV contrast. The examination is also severely compromised by streak and motion artifact 2. There are numerous mildly dilated loops of small bowel with extensive pneumatosis intestinalis, mesenteric venous gas, and portal venous gas. These findings are highly concerning for small bowel ischemia. 3. Small bowel dilatation is nonspecific. This could be related to an ileus or possibly a bowel obstruction. No discrete transition point is identified. 4. No intraperitoneal free air is clearly seen. 5. There is postoperative change from Rios-en-Y gastric bypass surgery. 6. Cardiomegaly. 7. Hepatomegaly and severe hepatic steatosis. 8. Additional findings as above. ACT 112: Negative or not required by law. Electronically signed by: Cisco Torres M.D. 03/21/2021 9:06 AM Chest X-Ray 03/21/21 07:39 XR chest 1V portable HISTORY: 65 years-old Male SEPSIS acute sepsis COMPARISON: Chest radiograph fourth 15/10/2012 TECHNIQUE: Portable AP view of the chest FINDINGS: Cardiac silhouette is enlarged, unchanged. Calcified plaque of the thoracic aorta. No pneumothorax, pleural effusion, airspace consolidation or overt pulmonary edema. Degenerative changes of the shoulders and spine. Right shoulder rotator cuff calcific tendinosis. Cholecystectomy. IMPRESSION: No acute process. ACT 112: Negative or not required by law. The above report was generated using voice recognition software. It may contain grammatical, syntax or spelling errors. Electronically signed by: Liu Tang M.D. 03/21/2021 8:[address] 03/21/21 07:[address] DOSE: HISTORY: Altered mental status. TECHNIQUE: Multiaxial CT images of the head were performed without the use of intravenous contrast. Automated exposure control was utilized for this study. A dose lowering technique was utilized adhering to the principles of ALARA. Comparison: Head CT 06/22/2017. Findings: Small retention cyst within the left maxillary sinus. No fluid levels within the paranasal sinuses. The mastoid air cells are clear. The calvarium and skull base are intact. The ventricles and sulci are within normal limits. There is no mass, hematoma, midline shift, or acute infarct. Impression: No acute intracranial abnormality. ACT 112: Negative or not required by law. Electronically signed by: Tapan De Leon M.D. 03/21/2021 8:[address] 03/21/21 07:56 CT cervical spine wo con CT DOSE: 4308.17 mGy.cm CLINICAL HISTORY: 65 years-old Male with ams. Acutely altered mental status COMPARISON: Head CT of same day TECHNIQUE: Multiple axial CT images of the cervical spine were obtained without contrast. A dose lowering technique was utilized adhering to the principles of ALARA. FINDINGS: Nuchal ligament calcifications. Moderate C1-C2 degeneration. Moderate multilevel facet arthrosis with mild spondylitic spurring and intervertebral disc space narrowing. Small posterior disc osteophyte complex at C2-C3. No acute fracture or subluxation. Study is motion degraded. Lung apices are clear. No pneumothorax. No prevertebral edema. Calcified plaque of the carotid arteries. IMPRESSION: No acute cervical spine fracture or subluxation. ACT 112: Negative or not required by law. The above report was generated using voice recognition software. It may contain grammatical, syntax or spelling errors. Electronically signed by: Liu Tang M.D. 03/21/2021 8:49 AM Chest X-Ray 03/21/21 10:30 SINGLE VIEW CHEST CLINICAL HISTORY: Central venous catheter placement. FINDINGS: An AP, portable, semierect chest radiograph is compared to study dated 03/21/2021 and correlated with chest CT dated 07/16/2012. The examination is mildly degraded by portable technique and patient rotation. A left internal jugular central venous catheter has been placed. The tip projects over the SVC. The heart is mildly enlarged noting atherosclerotic calcification of the thoracic aorta. The pulmonary vasculature is noncongested. There is mild elevation of the right hemidiaphragm. The lungs and pleural spaces are otherwise clear. No pneumothorax is seen. The skeletal structures appear osteopenic. The bony thorax is grossly intact. Surgical clips are seen in the upper abdomen. IMPRESSION: 1. A left internal jugular central venous catheter has been placed as above. No pneumothorax is identified post procedure. 2. Mild cardiac enlargement with no acute cardiopulmonary. ACT 112: Negative or not required by law. Electronically signed by: Cisco Torres M.D. 03/21/2021 10:41 AM Medications Administered Medication List Fentanyl Citrate (Fentanyl Citrate 100 Mcg/2 Ml Vial) 50 mcg IV Q15M PRN PRN Reason: Pain Stop: 04/04/21 09:31 Last Admin: 03/21/21 09:36 Dose: 50 mcg Documented by: [id number] Insulin Human Regular 250 (units/ Sodium Chloride) 250 mls @ 12 mls/hr IV .[id number] [facility]; Protocol Stop: 04/20/21 08:29 Last Titration: 03/21/21 11:23 Dose: 12 units/hr, 12 mls/hr Documented by: [id number] Cosigned by: [id number] Admin: 03/21/21 11:23 Dose: 12 units/hr, 12 mls/hr Documented by: [id number] Cosigned by: [id number] Titration: 03/21/21 10:39 Dose: 12 units/hr, 12 mls/hr Documented by: [id number] Cosigned by: [id number] Titration: 03/21/21 09:10 Dose: 10 units/hr, 10 mls/hr Documented by: [id number] Cosigned by: [id number] Admin: 03/21/21 08:57 Dose: 3.8 units/hr, 3.8 mls/hr Documented by: [id number] Cosigned by: [id number] Discontinued Medications Albuterol (Albut/Ipratrop 3mg/0.5mg Neb 3 Ml Vial) 12 ml NEB ONE ONE Stop: 03/21/21 07:49 Last Admin: 03/21/21 08:00 Dose: 12 ml Documented by: [id number] Calcium Gluconate (Calcium Gluconate 10% 10 Ml Vial) 1,000 mg IV ONE ONE Stop: 03/21/21 07:58 Last Admin: 03/21/21 08:03 Dose: 1,000 mg Documented by: [id number] Calcium Gluconate (Calcium Gluconate 1000 Mg/60 Ml Nss) Confirm Administered Dose 1,000 mg IV .STK-MED ONE Stop: 03/21/21 08:01 Last Admin: 03/21/21 08:05 Dose: Not Given Documented by: [id number] Sodium Chloride (Nss 1000ml) 1,000 mls @ 999 mls/hr IV .Q1H1M ONE Stop: 03/21/21 08:43 Last Infusion: 03/21/21 09:04 Dose: 0 mls/hr Documented by: [id number] Admin: 03/21/21 07:49 Dose: 999 mls/hr Documented by: [id number] Calcium Chloride 1,000 mg/ (Sodium Chloride) 60 mls @ 240 mls/hr IV NOW STA Stop: 03/21/21 08:02 Last Admin: 03/21/21 08:04 Dose: Not Given Documented by: [id number] Sodium Chloride (Nss 1000ml) 1,000 mls @ 999 mls/hr IV .Q1H1M ONE Stop: 03/21/21 08:53 Last Infusion: 03/21/21 09:04 Dose: 0 mls/hr Documented by: [id number] Admin: 03/21/21 08:03 Dose: 999 mls/hr Documented by: [id number] Piperacillin Sod/Tazobactam Sod (Zosyn) 4.5 gm in 120 mls @ 240 mls/hr IV NOW ONE Stop: 03/21/21 09:10 Last Infusion: 03/21/21 10:02 Dose: 0 mls/hr Documented by: [id number] Admin: 03/21/21 09:06 Dose: 240 mls/hr Documented by: [id number] Lactated Ringer's (Lr) 1,000 mls @ 999 mls/hr IV .Q1H1M ONE Stop: 03/21/21 10:00 Last Infusion: 03/21/21 11:24 Dose: 0 mls/hr Documented by: [id number] Admin: 03/21/21 09:03 Dose: 999 mls/hr Documented by: [id number] Insulin Human Regular (Novolin-R Insulin Per Unit Charge) 10 units IV NOW STA Stop: 03/21/21 07:49 Last Admin: 03/21/21 07:57 Dose: 10 units Documented by: [id number] Cosigned by: [id number] Miscellaneous (Stat Iv Infusion Titration Per Protocol) 1 ea N/A NOW STA Stop: 03/21/21 08:24 Last Admin: 03/21/21 09:07 Dose: 1 ea Documented by: [id number] Miscellaneous (Dka Goal Range 150-250 Mg/Dl) 1 ea N/A ONE ONE Stop: 03/21/21 08:24 Last Admin: 03/21/21 09:07 Dose: 1 ea Documented by: [id number] Ondansetron HCl (Ondansetron Inj 2 Mg/Ml 2 Ml Vial) 4 mg IV NOW STA Stop: 03/21/21 09:33 Last Admin: 03/21/21 09:36 Dose: 4 mg Documented by: [id number] Sodium Bicarbonate (Sodium Bicarb 8.4% Inj 50 Meq/50 Ml Syr) Confirm Administered Dose 100 meq IV .STK-MED ONE Stop: 03/21/21 10:09 Last Admin: 03/21/21 10:14 Dose: 100 meq Documented by: [id number] ECG Rate (beats per minute): 130 Rhythm: sinus tachycardia Findings: + PVC (bigeminy) and + ST depression (diffuse ) COVID-19 Results Results COVID-19 Adm Lab Results: RBC 3.49 M/uL (4.7-6.1) L 03/21/21 WBC 32.38 K/uL (4.8-10.8) H* 03/21/21 Hgb 10.9 g/dL (14.0-18.0) L 03/21/21 Hct 34.1 % (42-52) L 03/21/21 Plt Count 287 K/uL (130-400) 03/21/21 ANC 26.75 K/uL (1.4-6.5) H 03/21/21 ALC 3.66 K/uL (1.2-3.4) H 03/21/21 Neutrophils % (Manual) 82.6 % 03/21/21 Lymphocytes % (Manual) 11.3 % 03/21/21 Monocytes % (Manual) 4.3 % 03/21/21 Basophils % (Manual) 0.9 % 03/21/21 Metamyelocytes % (manual) 0.9 % 03/21/21 Neutrophils # (Manual) 26.75 K/uL (1.4-6.5) H 03/21/21 Lymphocytes # (Manual) 3.66 K/uL (1.2-3.4) H 03/21/21 Monocytes # (Manual) 1.39 K/uL (0.11-0.59) H 03/21/21 Basophils # (Manual) 0.29 K/uL (0-0.2) H 03/21/21 Metamyelocytes # (Manual) 0.29 K/uL (0-0) H 03/21/21 Echinocytes 1+ 03/21/21 Toxic Vacuolation 1+ 03/21/21 Na 140 mmol/L (136-145) 03/21/21 K 3.3 mmol/L (3.5-5.1) L 03/21/21 Cl 105 mmol/L (98-107) 03/21/21 CO2 15 mmol/L (21-32) L 03/21/21 Anion Gap 20.0 (3-11) H 03/21/21 BUN 57 mg/dl (7-18) H 03/21/21 Creatinine 3.21 mg/dl (0.6-1.4) H 03/21/21 BUN/Creatinine Ratio 17.9 (10-20) 03/21/21 Glucose Level 598 mg/dl (70-99) H* 03/21/21 Ca 6.8 mg/dl (8.5-10.1) L 03/21/21 Phosphorus Level 12.3 mg/dl (2.5-4.9) H 03/21/21 Total Bilirubin 0.5 mg/dl (0.2-1) 03/21/21 AST/SGOT 54 U/L (15-37) H 03/21/21 ALT/SGPT 28 U/L (12-78) 03/21/21 Alkaline Phosphatase 104 U/L (45-117) 03/21/21 Total Protein 6.0 gm/dl (6.4-8.2) L 03/21/21 Albumin 3.0 gm/dl (3.4-5.0) L 03/21/21 Globulin 3.0 gm/dl (2.5-4.0) 03/21/21 Albumin/Globulin Ratio 1.0 (0.9-2) 03/21/21 Troponin I 11.700 ng/ml (0-0.045) H* 03/21/21 Procalcitonin 11.23 ng/ml (0-0.5) H 03/21/21 PTT 36.7 Seconds (21.0-31.0) H 03/21/21 INR 1.1 (0.9-1.1) 03/21/21 COVID-19 PCR NEGATIVE (Negative) 03/21/21 ABG pH 7.23 (7.35-7.45) L 03/21/21 ABG pCO2 32 mmHg (35-46) L 03/21/21 ABG pO2 195 mmHg (80-95) H 03/21/21 ABG HCO3 13 mmol/L (19-24) L 03/21/21 ABG O2 Saturation 99.4 % (90-95) H 03/21/21 ABG Base Excess -13.4 mEq/L (-9-1.8) L 03/21/21 Chest X-Ray 03/21/21 Code Status & VTE Plan Code Status Full Code VTE Prophylaxis Plan VTE Prophylaxis will be ordered: Yes Supervising Physician Co-Signing Physician Notes Attending addendum: The patient was seen and examined in ICU in presence of the The told me that he has been complaining of intermittent abdominal discomfort and pain for the last few months and recently that has been worse He has been feeling unwell and has had a fall recently and remained extremely weak and noted to be completely altered by the when ambulance was called in and the patient was brought into the emergency room. He was admitted to ICU for further evaluation of this current medical conditions as above. In the ICU he remains in distress and abdominal pain He is waiting to go for small bowel resection by the surgeon this afternoon On examination Remains unstable with abdominal distention, pain and restlessness Hemodynamically stable Chest-clear Heart-S1-S2, regular Abdomen-distended, firm, very tender with rebound tenderness and decreasing bowel sound Extremities-no edema WHEEL INSPECTOR-alert and awake. Full neuro examination was not done His admission labs, EKG and imaging studies reviewed Has DKA with very high blood sugar of more than 1000, acute kidney injury with hyperkalemia, severe electrolyte imbalance, acute ischemic bowel and increasing troponin Appreciate cardiology, roll operator and surgery input and recommendation Discussed with the in detail and updated about guarded prognosis Agree with assessment and plan as outlined above by SHANNAN Lou DR
[2021-03-21 10:35] LABS: Glucose 969 mg/dl (70-99)
--- NOTE | 2021-03-21 10:42 | XRay Report ---
SINGLE VIEW CHEST CLINICAL HISTORY: Central venous catheter placement. FINDINGS: An AP, portable, semierect chest radiograph is compared to study dated 03/21/2021 and correl ated with chest CT dated 07/16/2012. The examination is mildly degraded by portable technique and pat ient rotation. A left internal jugular central venous catheter has been placed. The tip projects over the SVC. The heart is mildly enlarged noting atherosclerotic calcification of the thoracic aorta. Th e pulmonary vasculature is noncongested. There is mild elevation of the right hemidiaphragm. The lung s and pleural spaces are otherwise clear. No pneumothorax is seen. The skeletal structures appear ost eopenic. The bony thorax is grossly intact. Surgical clips are seen in the upper abdomen. IMPRESSION: 1. A left internal jugular central venous catheter has been placed as above. No pneumothorax is ident ified post procedure. 2. Mild cardiac enlargement with no acute cardiopulmonary. ACT 112: Negative or not required by law. Electronically signed by: Cisco Torres M.D. 03/21/2021 10:41 AM
--- NOTE | 2021-03-21 10:45 | Procedure Note ---
Procedure Note Date of Service March 21, 2021 Note Procedure date: Noted above Procedure: Central venous access Pre-procedure indication: Need for vasoactive medication administration Post-procedure Diagnosis: same as above Prior to Procedure: Informed Consent: The risks, benefits, indications, potential complications, and alternatives were explained to the patient's family and informed consent obtained. Attending Staff: Yessenia Guillaume DO Resident/APC: Tere Skin Prep: Chlorhexidine Anesthesia: 4 mL 1% lidocaine without epinephrine The identity of the patient was confirmed and a bedside time out was performed. Description of Procedure: After sterile prep and sterile drape utilizing standard sterile technique the superficial skin of the left jugular area was anesthetized. The target vessel was identified and entered with an 18-gauge needle. Dark venous blood return was noted. A guidewire was inserted through the needle and into the vessel. The needle was withdrawn and a skin aimee was made. A tissue dilator was advanced via Seldinger technique and removed. A t riple lumen catheter was inserted via Seldinger technique and the guidewire removed. All ports deanna and flushed easily. A Biopatch was placed, and the catheter was secured via silk suture. A sterile dressing was then applied. Complications: None Estimated blood loss: Trace Patient tolerated the procedure well. Procedure Date: Noted Above Procedure: Procedural Ultrasound Indication: Central venous access Attending: Yessenia Guillaume DO Resident/Physician Chip Separator: Tere Artery visualized: Yes Vein visualized: Yes Compressible Vein: Yes Vein patent: Yes Guidewire or Short Catheter seen in vein prior to dilation: Yes Line confirmed in Vein with ultrasound: Yes Lung Sliding on side of attempt (if applicable): NA If no lung sliding or not obtained has CXR been ordered: Yes Impression: Successful central venous access placement Coding CPT Codes Tubes, Drains, and Vasc Access - Tubes, Drains, and Vasc Access: [id number] Insertion Of Non-tunneled Catheter Age 5 Yrs> ([id number]) [facility] [place] Procedure Codes (Charges) Tubes, Drains, and Vasc Access Procedure 1: Tubes, Drains, and Vasc Access: [id number] Insertion Of Non-tunneled Catheter Age 5 Yrs>
--- NOTE | 2021-03-21 10:46 | Critical Care Consultation ---
Date of Consultation March 21, 2021 Assessment & Plan (1) Acute metabolic encephalopathy: Kirit Pittman is a 65 yo male with PMHx significant for T1DM (A1c 7.5 on 03/21/21, management with insulin pump), HTN, and h/o gastric bypass surgery who was admitted to [facility] ICU on 03/21 for severe DKA and concern for small bowel ischemia, for close hemodynamic monitoring and aggressive fluid resuscitation with electrolyte correction. Neuro: Metabolic encephalopathy in context of DKA and small bowel ischemia. Patient currently incoherent but does moan with verbal stimulation. Likely to improve with treatment of above. - close monitoring while in ICU Cardiac: NSTEMI. EKG with inferolateral ST depressions and Troponin elevated at 5.57. Suspect ischemia in context of profound dehydration/acidosis due to DKA and bowel ischemia. Patient is currently hypotensive with BPs in 80s/50s. - Cardiology consulted - appreciate recs - TTE ordered - pending - hold home Amlodipine, Lisinopril, Toprol XL, Spironolactone - will start Levophed gtt for pressor support Respiratory: Patient is severely tachypneic in attempt to compensate for severe metabolic acidosis. Currently satting well on 4L NC. - close monitoring of respiratory status while in ICU, patient may need to be intubated/ventilated if he fatigues GI: CT A/P showed dilated loops of small bowel with extensive pneumatosis intestinalis, mesenteric venous gas, and portal venous gas suspicious for small bowel ischemia. No intraperitoneal free air. Elevated Procalcitonin 11.23 and Lactate 5.3 are likely secondary to this, as well as severe DKA. - surgery consulted - appreciate recs - plan for surgery to evaluate for small bowel ischemia and need for resection, once patient's acidosis and dehydration improves - continue broad-spectrum antibiotic coverage with Zosyn RENAL/LYTES: Na 126, corrected for hyperglycemia, is 148. Hypercalemia 7.7, hypocalcemia iCa 1.05, hyperphosphatemia of 12.3, and RONDA with Cr of 3.24 are all in context of severe DKA/acidosis and bowel ischemia. - received calcium gluconate and IVF boluses in the ED, K improved to 5.8 - Cr improved to 3.09 - continue with aggressive fluid resuscitation, treatment of DKA, and broad- spectrum abx as stated above : No concerns at this time. - we will insert urinary holcomb catheter - strict I/Os ENDO: Severe DKA. Initial pH 6.85, HCO3 of 5, AG of 32, BHB 144.57. Likely due to malfunction of new insulin pump, as the patient is well-controlled overall with A1c 7.5 during this hospitalization. - glucose improved from 1093 to 902 over the course of 3 hours - continue with insulin gtt, glucose goal is maximum decrease of 100mg/dL/hr - s/p 3L IVF boluses, will continue with Normosol 1L bolus followed by Normosol @ 140cc/hr - L IJ CVC placed by Dr. Guillaume to allow for aggressive IVF resuscitation HEME: Normocytic anemia, Hgb 10.9 and MCV 97.7. No active signs of bleeding. Likely in context of chronic diabetic kidney disease. - monitor CBC ID: Concern for small bowel ischemia as stated above, with elevated procalcitonin and lactate. - will continue with Zosyn as stated above - Monitor fever curve - plan for OR for ischemia eval once volume and acid/base status improves LINES/IV ACCESS - L IJ CVC, PIVs intact. DVT PROPHYLAXIS - Hold chemoprophylaxis due to plans for surgery. Thank you for allowing us to be part of this patient's care. Please refer to Dr. Guillaume's documentation for any further recommendations. (2) DKA, type 1: (3) NSTEMI (non-ST elevated myocardial infarction): (4) DKA (diabetic ketoacidosis): (5) Hypermagnesemia: (6) Severe sepsis: (7) Lactic acid acidosis: (8) Small bowel ischemia: (9) Anemia: (10) Hyperphosphatemia: (11) Hyperkalemia: (12) Hypertension: Supervising Physician Co-Signing Physician Notes Patient critically ill due to severe DKA. Also noticed pneumobilia will continue resuscitation severe acidosis, aggressive volume resuscitation with electrolyte correction. I discussed with cardiology, anesthesia, surgery. I have personally spent 40 minutes of critical care time in the direct management of this patient. This is a life/limb threatening event. This includes time spent evaluating patient, direct bedside care, chart review, placing orders, interpretation of diagnostic studies, discussion with consultants, patient, and/or family members regarding treatment decisions, as well as other required patient management activities. This time is exclusive of all separately billable procedures, and teaching time and separate from and in addition to any other critical care service time. History of Present Illness Reason for Consultation: DKA Requesting Physician: Dr. Ragland Attending Physician: Dr. Glover History of Present Illness Kirit Pittman is a 65 yo male with PMHx significant for T1DM (A1c 7.5 on 03/21/21, management with insulin pump), HTN, and h/o gastric bypass surgery who presented to [facility] ED on 03/21 for altered mental status. Per EMS report, patient was found by his with acute-onset confusion, with hyperglycemia. Reportedly was in regular state of health with no preceding constitutional/respiratory/GI/urinary symptoms before this morning. He did get a new insulin pump ~1 week ago although, per EMS report, the patient and his had reported that it was working. In the ED the patient was groaning and unable to follow commands; he was tachypneic and was started on 4L NC. He was also hypotensive to 90s/50s. Laboratory evaluation revealed profound leukocytosis 32.38, elevated Procalcitonin 11.23, Lactate 5.3. VBG showed profound metabolic acidosis: pH 6.85, pCO2 30, pO2 56, pHCO3 5, BHB 144.57. Hyponatremia 126, hyerkalemia 7.7, iCa 1.05, Phos 12.3, HCO3 of 4, anion gap of 32, Cr 3.24, Glucose 1093. Troponin was elevated at 5.[address] depressions in inferolateral leads. CXR, CT head w/o contrast, CT c-spine all unremarkable. However CT A/P showed dilated loops of small bowel with extensive pneumatosis intestinalis, mesenteric venous gas, and portal venous gas suspicious for small bowel ischemia. No intraperitoneal free air. The patient was given 3L IVF boluses, Calcium gluconate x1, Bicarb bolus x2, and started on insulin gtt for DKA; glucose has decreased to 969 and pH increased to 7.01. Cardiology was consulted for elevated troponin. Surgery was consulted for pneumatosis concern of small bowel ischemia. ICU was consulted for close hemodynamic monitoring and aggressive fluid resuscitation in this patient with severe DKA. Allergies Allergy/AdvReac Type Severity Reaction Status Date / Time nortriptyline Allergy Unknown ITCHING Verified 03/21/21 08:53 hydromorphone [From Dilaudid] AdvReac Unknown Nausea/Vomi Verified 03/21/21 08:5 3 ting Home Medications Medication Instructions Recorded Confirmed Type blood sugar diagnostic (Contour #10 ea 05/20/19 11/18/20 History Next Test Strips) blood-glucose sensor (Dexcom G6 #3 ea 07/31/19 02/17/21 History Sensor) cyanocobalamin (vitamin B-12) 1,000 mcg PO QAM 02/03/20 03/21/21 History 1,000 mcg capsule metoprolol succinate 25 mg 25 mg PO QAM 11/18/20 03/21/21 History tablet,extended release 24 hr (Toprol XL) insulin lispro 100 unit/mL See Rx Instructions SQ .COMPLEX 02/23/21 03/21/21 Rx subcutaneous solution (Humalog #50 ml U-100 Insulin) amlodipine 5 mg tablet (Norvasc) 5 mg PO QAM 03/21/21 03/21/21 History cholecalciferol (vitamin D3) 50 2,000 units PO QAM 03/21/21 03/21/21 History mcg (2,000 unit) capsule (Vitamin D3) lisinopril 40 mg tablet (Zestril) 40 mg PO QAM 03/21/21 03/21/21 History spironolactone 25 mg tablet 25 mg PO BID 03/21/21 03/21/21 History (Aldactone) Patient History Medical History (Updated 03/21/21 @ 11:59 by Edwige Cobos PA-C) COPD (chronic obstructive pulmonary disease) Diabetes mellitus with diabetic polyneuropathy Diabetes type 1, controlled Diabetic peripheral neuropathy associated with type 1 diabetes mellitus History of pulmonary embolism Hx of recurrent vertebral fractures Hypertension Vitamin D deficiency Surgical History Gastric bypass status for obesity History of back surgery History of carpal tunnel release of both wrists Hx of knee surgery Hx of shoulder surgery S/P cholecystectomy Ulnar nerve entrapment corrected Family History Mother Alzheimer disease Hypertension Brother Diabetes A-fib Father Bone cancer Social History Smoking Status: Never smoker Hx Alcohol Use: Yes Alcohol Intake Frequency Comment: Occasional Preferred Language: Kinyarwanda Communication Ability: Unable Beliefs That Will Affect Care: None marital status: Current Living Situation: Spouse current occupational status: retired Review of Systems Review of Systems: Unobtainable due to cognitive status Physical Exam Physical Exam: General: Patient is groaning and in respiratory distress, with NC in place. Eyes are open and he does respond to his name being called but is not coherent. HEENT: Atraumatic, normocephalic. Neck: trachea midline, no thyromegaly Pulm: CTAB A&P. -wheezes, -rales, -rhonchi. Patient is tachypneic with tracheal tugging and subcostal retractions. Is in respiratory distress. NC in place. Cardiac: RRR, -mrg. Radial pulses intact and symmetrical. No LE edema. Abdominal: soft and non-distended, appears tender to palpation but difficult to assess with patient's altered mental status Skin: warm, dry, no rash Results & Data Results & Data ([facility]) Vital Signs (Past 12 Hours) Vital Signs Temp Pulse Pulse Resp BP Pulse Ox 03/21/21 10:30 66 29 H 90/44 L 99 03/21/21 10:15 69 27 H 95/52 L 99 03/21/21 10:00 63 25 H 111/47 L 100 03/21/21 09:51 62 26 H 97/50 L 100 03/21/21 09:45 62 30 H 111/45 L 100 03/21/21 09:30 64 30 H 103/51 L 97 03/21/21 09:16 71 20 83/56 L 99 03/21/21 09:01 79 30 H 114/51 L 100 03/21/21 08:49 67 24 03/21/21 08:18 140 H 27 H 100 03/21/21 08:05 68 20 100 03/21/21 08:02 60 22 88/42 L 100 03/21/21 07:45 61 22 78/60 L 95 03/21/21 07:40 34.5 C L 68 27 H 91/47 L 96 Resident Activity Tracking Resident Involvement: Resident Care Provided Care Provided: Adult Hospital Medicine
--- NOTE | 2021-03-21 10:47 | Billing Data ---
Date of Service March 21, 2021 Coding Level of Care Code Critical Care 08 27- mins
[2021-03-21 10:49] LABS: Base Excess VBG -23.8 mEq/L; pH VBG 7.01 (7.36-7.41)
--- NOTE | 2021-03-21 11:13 | Cardiology Consultation ---
Date of Consultation March 21, 2021 Assessment & Plan (1) DKA (diabetic ketoacidosis): (2) RONDA (acute kidney injury): (3) Hyperkalemia: (4) NSTEMI (non-ST elevated myocardial infarction): 65-year-old type I diabetic presents with 24 hours of progressive severe generalized illness, nausea, and is been found to be in DKA with blood glucose greater than 600 mg/dL. Acute kidney injury also noted and his troponin is 5.5 on initial presentation. EKG performed this morning at 734 revealed sinus tachycardia 130 bpm with severe diffuse ST segment depression consistent with ischemia. A repeat tracing at [address] depression most prominently in the precordial leads, still c onsistent with subendocardial ischemia/injury, but improved compared to the initial tracing. Recommend ongoing supportive care. At the time my assessment the patient was also being assessed by the hospitalist team and the critical care team. Planning appropriate venous access, aggressive fluid hydration, and medical treatment for hyperkalemia, and hyperglycemia. There are findings concerning for ischemic bowel. At present, patient requires further optimization before consideration of operative intervention can be entertained. Patient is to have an echocardiogram after he arrives in the ICU. Hold off on systemic anticoagulation due to need for anticipated invasive procedures. Care coordinated with Dr Guillaume of critical care medicine and Dr Lindsay of anesthesia. History of Present Illness Reason for Consultation: abnormal EKG Requesting Physician: Edwige East PA-c History of Present Illness Mr Pittman is a 65 year old male seen in cardiology consultation in ED bay A1 for evaluation of abnormal EKG and elevated troponin. History obtained from records, and from interview with his spouse at the bedside. Patient is critically ill, and is unable to provide history. He has a history of type 1 diabetes mellitus. He had a recent fall and hurt his back, and then all the yesterday he became progressively more ill, complaining of abdominal discomfort, and was dry heaving per the spouse's description. The patient's presenting blood pressure at 740 this morning in the emergency department was 91/47, with 1 measurement as low as 78/60. Laboratory studies are notable for WBC count of 32,000, potassium 7.5,Creatinine 3.24, multiple measurements of serum glucose in excess of 600 mg/dL, lactate level 4.4, troponin I of 5.5 NG per mL, procalcitonin level 11.23, and initial venous blood gas pH of 6.85. A CT of the abdomen pelvis without contrast suggests extensive intestinal pneumatosis concerning for small bowel ischemia. Postoperative changes of Rios-en-Y gastric bypass surgery also noted. Per my interview with spouse, patient has no past history of known coronary heart disease and does not follow routinely with cardiology. Per review of records he has a history of remote pulmonary embolism, not on anticoagulation now. Allergies Allergy/AdvReac Type Severity Reaction Status Date / Time nortriptyline Allergy Unknown ITCHING Verified 03/21/21 08:53 hydromorphone [From Dilaudid] AdvReac Unknown Nausea/Vomi Verified 03/21/21 08:53 ting Home Medications Medication Instructions Recorded Confirmed Type blood sugar diagnostic (Contour #10 ea 05/20/19 11/18/20 History Next Test Strips) blood-glucose sensor (Dexcom G6 #3 ea 07/31/19 02/17/21 History Sensor) cyanocobalamin (vitamin B-12) 1,000 mcg PO QAM 02/03/20 03/21/21 History 1,000 mcg capsule metoprolol succinate 25 mg 25 mg PO QAM 11/18/20 03/21/21 History tablet,extended release 24 hr (Toprol XL) insulin lispro 100 unit/mL See Rx Instructions SQ .COMPLEX 02/23/21 03/21/21 Rx subcutaneous solution (Humalog #50 ml U-100 Insulin) amlodipine 5 mg tablet (Norvasc) 5 mg PO QAM 03/21/21 03/21/21 History cholecalciferol (vitamin D3) 50 2,000 units PO QAM 03/21/21 03/21/21 History mcg (2,000 unit) capsule (Vitamin D3) lisinopril 40 mg tablet (Zestril) 40 mg PO QAM 03/21/21 03/21/21 History spironolactone 25 mg tablet 25 mg PO BID 03/21/21 03/21/21 History (Aldactone) Patient History Medical History Diabetes mellitus with diabetic polyneuropathy Hx of recurrent vertebral fractures Hypertension Vitamin D deficiency Surgical History Gastric bypass status for obesity History of back surgery History of carpal tunnel release of both wrists Hx of knee surgery Hx of shoulder surgery S/P cholecystectomy Ulnar nerve entrapment corrected Family History Mother Alzheimer disease Hypertension Brother Diabetes A-fib Father Bone cancer Social History Smoking Status: Never smoker Hx Alcohol Use: Yes Alcohol Intake Frequency Comment: Occasional Preferred Language: Nigerien marital status: Current Living Situation: Spouse current occupational status: retired Feels Safe at Home: Yes Review of Systems Review of Systems: Unobtainable due to reduced consciousness Physical Exam Physical Exam: Temp Pulse Resp BP Pulse Ox 36.6 C 72 72 H 144/93 H 99 03/21/21 10:40 03/21/21 10:40 03/21/21 10:40 03/21/21 10:40 03/21/21 10:40 Constitutional: + acute distress Respiratory: normal respiratory effort, lungs clear to auscultation Cardiovascular: RRR, no murmur, no edema Gastrointestinal (Abdomen): Vague diffuse tenderness on palpitation Neurologic: Moves all 4 extremities Results & Data ([facility]) Vital Signs (Past 12 Hours) Vital Signs Temp Pulse Pulse Resp BP Pulse Ox 03/21/21 10:30 66 29 H 90/44 L 99 03/21/21 10:15 69 27 H 95/52 L 99 03/21/21 10:00 63 25 H 111/47 L 100 03/21/21 09:51 62 26 H 97/50 L 100 03/21/21 09:45 62 30 H 111/45 L 100 03/21/21 09:30 64 30 H 103/51 L 97 03/21/21 09:16 71 20 83/56 L 99 03/21/21 09:01 79 30 H 114/51 L 100 03/21/21 08:49 67 24 03/21/21 08:18 140 H 27 H 100 03/21/21 08:05 68 20 100 03/21/21 08:02 60 22 88/42 L 100 03/21/21 07:45 61 22 78/60 L 95 03/21/21 07:40 34.5 C L 68 27 H 91/47 L 96
[2021-03-21] MEDS ORDERED: ICU PROTOCOL FOR HYPERGLYCEMIA PRN (11:15)
[2021-03-21] MEDS ORDERED: ICU SEVERE HYPERGLYCEMIA PROTOCOL ONE (11:19)
[2021-03-21 11:23] LABS: BUN Creatinine Ratio 17.7 (10-20); Calcium 7.5 mg/dl (8.5-10.1); Creatinine Clr Calc Pharmacy 29.2 ml/min; Est GFR (African American) 23.3 ml/min; Est GFR (Non-African American) 20.1 ml/min; Potassium 5.8 mmol/L (3.5-5.1)
[2021-03-21 11:50] LABS: Beta-Hydroxybutyrate 130.44 mg/dl (0.2-2.81)
[2021-03-21] MEDS ORDERED: NORMOSOL-R 1,000 ML IV ONE (11:52)
[2021-03-21] MEDS: NOREPINEPHRINE/D5W 8 MG/508 ML BAG IV SCH (12:08)
[2021-03-21] MEDS ORDERED: NORMOSOL-R 1,000 ML IV SCH (12:15)
[2021-03-21] MEDS: INSULIN ASPART 100 UNITS/ML 3 ML PEN SC SCH ×3 (12:16→22:50)
[2021-03-21] MEDS ORDERED: SODIUM BICARB 8.4% INJ 50 MEQ/50 ML SYR IV STA (12:43)
--- NOTE | 2021-03-21 12:50 | Surgery Consultation ---
Date of Consultation March 21, 2021 Assessment & Plan (1) Severe sepsis: (2) Lactic acid acidosis: (3) Small bowel ischemia: pt is a 65 year-old male who was found on home floor, pt had abnormal labs, high WBC, troponin 5.5, blood surgar, 1000, CT scan finding, ischemia of bowel, Plan, pt is in ICU for resuscitation, once pt's condition is stable, I recommend to do exploratory laparotomy, possible bowel resection, stoma, D/W the benefits, risks and alternative of the surgery, with pt's , the risks - infection, bleeding, sepsis, multiple organs failure, DVT, MT, stoke, , pt's understood, she agrees with the surgery, I answered all questions, (4) Acute metabolic encephalopathy: (5) DKA, type 1: (6) NSTEMI (non-ST elevated myocardial infarction): Supervising Physician Co-Signing Physician Notes Patient critically ill due to severe DKA. Also noticed pneumobilia will continue resuscitation severe acidosis, aggressive volume resuscitation with electrolyte correction. I discussed with cardiology, anesthesia, surgery. I have personally spent 40 minutes of critical care time in the direct management of this patient. This is a life/limb threatening event. This includes time spent evaluating patient, direct bedside care, chart review, placing orders, interpretation of diagnostic studies, discussion with consultants, patient, and/or family members regarding treatment decisions, as well as other required patient management activities. This time is exclusive of all separately billable procedures, and teaching time and separate from and in addition to any other critical care service time. History of Present Illness Reason for Consultation: ischemic bowel Requesting Physician: Layla Glover MD Attending Physician: Layla Glover MD History of Present Illness History of Present Illness Chief Complaint: AMS x 1 day. Primary Care Provider: Nicolas Padron DO This is a 65-year-old male who has significant past medical history of type 1 diabetes mellitus, history of PE, HTN, HLD, History of Rios-en-Y, history of venous thrombosis, diabetic polyneuropathy, anxiety who presents to ED for altered mental status x1 day. is at bedside. She states he fell on Saturday and complained of back pain. Due to back pain and feeling unwell he spent all day yesterday in bed. He did have nausea and vomiting but no other complaints per . She slept on the couch and when she went to check on him this morning he was found on the floor and completely altered. She called EMS. Patient unable to give history secondary to cognitive status. He does have history of type 1 diabetes managed on insulin pump. EMS found him to be significantly hyperglycemic. In ED patient was found to be in severe DKA with presenting blood sugar greater than 1000. His initial VBG pH was 6.85 with a CO2 of 30. He met severe sepsis criteria secondary to leukocytosis 32.38k, lactic acidosis 5.3, & RONDA with BUN [address] abdomen pelvis concerning for small intestine ischemia with pneumatosis intestinalis. He received a total of 3 L of IV fluid prior to my evaluation, blood and urine cultures were obtained, started empirically on IV Zosyn and received 14 unit bolus of IV insulin and started on insulin drip. He also received calcium gluconate for hyperkalemia. I ( Pita Orantes MD ) got a call for consult ischemic bowel, I reviewed pt's H/P, labs, CT scan with pt's at ER bedside, Allergies Allergy/AdvReac Type Severity Reaction Status Date / Time nortriptyline Allergy Unknown ITCHING Verified 03/21/21 08:53 hydromorphone [From Dilaudid] AdvReac Unknown Nausea/Vomi Verified 03/21/21 08:53 ting Home Medications Medication Instructions Recorded Confirmed Type blood sugar diagnostic (Contour #10 ea 05/20/19 11/18/20 History Next Test Strips) blood-glucose sensor (Dexcom G6 #3 ea 07/31/19 02/17/21 History Sensor) cyanocobalamin (vitamin B-12) 1,000 mcg PO QAM 02/03/20 03/21/21 History 1,000 mcg capsule metoprolol succinate 25 mg 25 mg PO QAM 11/18/20 03/21/21 History tablet,extended release 24 hr (Toprol XL) insulin lispro 100 unit/mL See Rx Instructions SQ .COMPLEX 02/23/21 03/21/21 Rx subcutaneous solution (Humalog #50 ml U-100 Insulin) amlodipine 5 mg tablet (Norvasc) 5 mg PO QAM 03/21/21 03/21/21 History cholecalciferol (vitamin D3) 50 2,000 units PO QAM 03/21/21 03/21/21 History mcg (2,000 unit) capsule (Vitamin D3) lisinopril 40 mg tablet (Zestril) 40 mg PO QAM 03/21/21 03/21/21 History spironolactone 25 mg tablet 25 mg PO BID 03/21/21 03/21/21 History (Aldactone) Past Med/Surg History Medical History (Updated 03/21/21 @ 11:59 by Edwige Cobos PA-C) COPD (chronic obstructive pulmonary disease) Diabetes mellitus with diabetic polyneuropathy Diabetes type 1, controlled Diabetic peripheral neuropathy associated with type 1 diabetes mellitus History of pulmonary embolism Hx of recurrent vertebral fractures Hypertension Vitamin D deficiency Surgical History Gastric bypass status for obesity History of back surgery History of carpal tunnel release of both wrists Hx of knee surgery Hx of shoulder surgery S/P cholecystectomy Ulnar nerve entrapment corrected Family History Mother Alzheimer disease Hypertension Brother Diabetes A-fib Father Bone cancer Social History Smoking Status: Never smoker Hx Alcohol Use: Yes Alcohol Intake Frequency Comment: Occasional Preferred Language: Armenian marital status: Current Living Situation: Spouse current occupational status: retired Feels Safe at Home: Yes Review of Systems Review of Systems: Unobtainable due to cognitive status Allergies Allergy/AdvReac Type Severity Reaction Status Date / Time nortriptyline Allergy Unknown ITCHING Verified 03/21/21 08:53 hydromorphone [From Dilaudid] AdvReac Unknown Nausea/Vomi Verified 03/21/21 08:53 ting Home Medications Medication Instructions Recorded Confirmed Type blood sugar diagnostic (Contour #10 ea 05/20/19 11/18/20 History Next Test Strips) blood-glucose sensor (Dexcom G6 #3 ea 07/31/19 02/17/21 History Sensor) cyanocobalamin (vitamin B-12) 1,000 mcg PO QAM 02/03/20 03/21/21 History 1,000 mcg capsule metoprolol succinate 25 mg 25 mg PO QAM 11/18/20 03/21/21 History tablet,extended release 24 hr (Toprol XL) insulin lispro 100 unit/mL See Rx Instructions SQ .COMPLEX 02/23/21 03/21/21 Rx subcutaneous solution (Humalog #50 ml U-100 Insulin) amlodipine 5 mg tablet (Norvasc) 5 mg PO QAM 03/21/21 03/21/21 History cholecalciferol (vitamin D3) 50 2,000 units PO QAM 03/21/21 03/21/21 History mcg (2,000 unit) capsule (Vitamin D3) lisinopril 40 mg tablet (Zestril) 40 mg PO QAM 03/21/21 03/21/21 History spironolactone 25 mg tablet 25 mg PO BID 03/21/21 03/21/21 History (Aldactone) Patient History Medical History (Updated 03/21/21 @ 11:59 by Edwige Cobos PA-C) COPD (chronic obstructive pulmonary disease) Diabetes mellitus with diabetic polyneuropathy Diabetes type 1, controlled Diabetic peripheral neuropathy associated with type 1 diabetes mellitus History of pulmonary embolism Hx of recurrent vertebral fractures Hypertension Vitamin D deficiency Surgical History Gastric bypass status for obesity History of back surgery History of carpal tunnel release of both wrists Hx of knee surgery Hx of shoulder surgery S/P cholecystectomy Ulnar nerve entrapment corrected Family History Mother Alzheimer disease Hypertension Brother Diabetes A-fib Father Bone cancer Social History Smoking Status: Never smoker Hx Alcohol Use: Yes Alcohol Intake Frequency Comment: Occasional Preferred Language: Armenian Communication Ability: Unable Beliefs That Will Affect Care: None marital status: Current Living Situation: Spouse current occupational status: retired Physical Exam Constitutional: no reactive, coma Eyes: PERRL, conjunctivae normal, anicteric sclerae Neck: trachea midline, no thyromegaly Respiratory: normal respiratory effort, lungs clear to auscultation Cardiovascular: RRR, no murmur, no edema Gastrointestinal (Abdomen): soft, mild distend, could not tell pt has tenderness or not, pt is not reactive, BS + Skin: no rashes, warm and dry Neurologic: no reactive Results & Data ([facility]) Vital Signs (Past 12 Hours) Vital Signs Temp Pulse Pulse Resp BP BP Pulse Ox 03/21/21 12:17 33.8 C L 68 32 H 111/66 100 03/21/21 12:01 33.7 C L 71 27 H 84/45 L 100 03/21/21 12:00 34.9 C L 99 03/21/21 11:52 34.9 C L 67 12 87/62 L 100 03/21/21 11:46 33.6 C L 67 27 H 87/62 L 100 03/21/21 11:31 79 28 H 88/41 L 100 03/21/21 11:16 65 27 H 105/56 L 100 03/21/21 11:00 65 22 03/21/21 10:57 65 27 H 03/21/21 10:40 36.6 C 72 72 H 144/93 H 99 03/21/21 10:30 66 29 H 90/44 L 99 03/21/21 10:15 69 27 H 95/52 L 99 03/21/21 10:00 63 25 H 111/47 L 100 03/21/21 09:51 62 26 H 97/50 L 100 03/21/21 09:45 62 30 H 111/45 L 100 03/21/21 09:30 64 30 H 103/51 L 97 03/21/21 09:16 71 20 83/56 L 99 03/21/21 09:01 79 30 H 114/51 L 100 03/21/21 08:49 67 24 03/21/21 08:18 140 H 27 H 100 03/21/21 08:05 68 20 100 03/21/21 08:02 60 22 88/42 L 100 03/21/21 07:45 61 22 78/60 L 95 03/21/21 07:40 34.5 C L 68 27 H 91/47 L 96 Laboratory Results Abnormal lab results 03/21/21 03/21/21 03/21/21 Range/Units 07:38 07:41 07:47 WBC (4.8-10.8) K/uL RBC (4.7-6.1) M/uL Hgb (14.0-18.0) g/dL POC Hgb 12.6 L (14.0-18.0) g/dl Hct (42-52) % POC Hct 37 L (42-52) % Neutrophils # (Manual) (1.4-6.5) K/uL Total Absolute Neuts (1.4-6.5) K/uL Lymphocytes # (Manual) (1.2-3.4) K/uL Total Abs Lymphocytes (1.2-3.4) K/uL Monocytes # (Manual) (0.11-0.59) K/uL Basophils # (Manual) (0-0.2) K/uL Metamyelocytes # (Man) (0-0) K/uL APTT (21.0-31.0) Seconds VBG pH (7.36-7.41) VBG pCO2 (38-50) mmHg POC Sodium 123 L (135-144) mmol/L Sodium (136-145) mmol/L POC Potassium 7.5 H* (3.3-5.0) mmol/L Potassium (3.5-5.1) mmol/L POC Chloride 97 L (101-112) mmol/L Chloride (98-107) mmol/L Carbon Dioxide (21-32) mmol/L POC Total CO2 6 L* (24-31) mmol/L Anion Gap (3-11) POC Anion Gap 29.0 H (16-25) mmol/L POC BUN 58 H (7-18) mg/dl BUN (7-18) mg/dl Creatinine (0.6-1.4) mg/dl POC Creatinine 3.0 H (0.6-1.3) mg/dl Glucose (70-99) mg/dl POC Glucose > 600 H* > 600 H* (70-99) mg/dl POC Glucose (other) > 700 H* (70-99) mg/dl Hemoglobin A1c (4.5-5.6) % Lactate (0.4-2.0) mmol/L Calcium (8.5-10.1) mg/dl POC Ioniz Calcium Bart 1.05 L (1.12-1.32) mmol/l Phosphorus (2.5-4.9) mg/dl Magnesium (1.8-2.4) mg/dl AST (15-37) U/L Troponin I (0-0.045) ng/ml Total Protein (6.4-8.2) gm/dl Albumin (3.4-5.0) gm/dl Beta-Hydroxybutyric Acd (0.2-2.81) mg/dl Procalcitonin (0-0.5) ng/ml Urine Protein (Negative) Urine Glucose (UA) (Negative) Urine Ketones (Negative) Urine Blood (Negative) Urine Bilirubin (Negative) Urine RBC (0-4) /hpf Urine WBC (0-5) /hpf Ur Epithelial Cells (0-5) /lpf Urine Bacteria (Negative) 03/21/21 03/21/21 03/21/21 Range/Units 07:48 07:48 07:48 WBC 32.38 H* (4.8-10.8) K/uL RBC 3.49 L (4.7-6.1) M/uL Hgb 10.9 L (14.0-18.0) g/dL POC Hgb (14.0-18.0) g/dl Hct 34.1 L (42-52) % POC Hct (42-52) % Neutrophils # (Manual) 26.75 H (1.4-6.5) K/uL Total Absolute Neuts 26.75 H (1.4-6.5) K/uL Lymphocytes # (Manual) 3.66 H (1.2-3.4) K/uL Total Abs Lymphocytes 3.66 H (1.2-3.4) K/uL Monocytes # (Manual) 1.39 H (0.11-0.59) K/uL Basophils # (Manual) 0.29 H (0-0.2) K/uL Metamyelocytes # (Man) 0.29 H (0-0) K/uL APTT 36.7 H (21.0-31.0) Seconds VBG pH (7.36-7.41) VBG pCO2 (38-50) mmHg POC Sodium (135-144) mmol/L Sodium 126 L (136-145) mmol/L POC Potassium (3.3-5.0) mmol/L Potassium 7.7 H* (3.5-5.1) mmol/L POC Chloride (101-112) mmol/L Chloride 90 L (98-107) mmol/L Carbon Dioxide 4 L* (21-32) mmol/L POC Total CO2 (24-31) mmol/L Anion Gap 32.0 H (3-11) POC Anion Gap (16-25) mmol/L POC BUN (7-18) mg/dl BUN 56 H (7-18) mg/dl Creatinine 3.24 H (0.6-1.4) mg/dl POC Creatinine (0.6-1.3) mg/dl Glucose 1093 H* (70-99) mg/dl POC Glucose (70-99) mg/dl POC Glucose (other) (70-99) mg/dl Hemoglobin A1c (4.5-5.6) % Lactate (0.4-2.0) mmol/L Calcium 7.4 L (8.5-10.1) mg/dl POC Ioniz Calcium Bart (1.12-1.32) mmol/l Phosphorus (2.5-4.9) mg/dl Magnesium 3.3 H (1.8-2.4) mg/dl AST 54 H (15-37) U/L Troponin I 5.570 H* (0-0.045) ng/ml Total Protein 6.0 L (6.4-8.2) gm/dl Albumin 3.0 L (3.4-5.0) gm/dl Beta-Hydroxybutyric Acd 144.57 H (0.2-2.81) mg/dl Procalcitonin (0-0.5) ng/ml Urine Protein (Negative) Urine Glucose (UA) (Negative) Urine Ketones (Negative) Urine Blood (Negative) Urine Bilirubin (Negative) Urine RBC (0-4) /hpf Urine WBC (0-5) /hpf Ur Epithelial Cells (0-5) /lpf Urine Bacteria (Negative) 03/21/21 03/21/21 03/21/21 Range/Units 07:48 07:48 07:48 WBC (4.8-10.8) K/uL RBC (4.7-6.1) M/uL Hgb (14.0-18.0) g/dL POC Hgb (14.0-18.0) g/dl Hct (42-52) % POC Hct (42-52) % Neutrophils # (Manual) (1.4-6.5) K/uL Total Absolute Neuts (1.4-6.5) K/uL Lymphocytes # (Manual) (1.2-3.4) K/uL Total Abs Lymphocytes (1.2-3.4) K/uL Monocytes # (Manual) (0.11-0.59) K/uL Basophils # (Manual) (0-0.2) K/uL Metamyelocytes # (Man) (0-0) K/uL APTT (21.0-31.0) Seconds VBG pH 6.85 L (7.36-7.41) VBG pCO2 30 L (38-50) mmHg POC Sodium (135-144) mmol/L Sodium (136-145) mmol/L POC Potassium (3.3-5.0) mmol/L Potassium (3.5-5.1) mmol/L POC Chloride (101-112) mmol/L Chloride (98-107) mmol/L Carbon Dioxide (21-32) mmol/L POC Total CO2 (24-31) mmol/L Anion Gap (3-11) POC Anion Gap (16-25) mmol/L POC BUN (7-18) mg/dl BUN (7-18) mg/dl Creatinine (0.6-1.4) mg/dl POC Creatinine (0.6-1.3) mg/dl Glucose (70-99) mg/dl POC Glucose (70-99) mg/dl POC Glucose (other) (70-99) mg/dl Hemoglobin A1c (4.5-5.6) % Lactate 5.3 H* (0.4-2.0) mmol/L Calcium (8.5-10.1) mg/dl POC Ioniz Calcium Bart (1.12-1.32) mmol/l Phosphorus (2.5-4.9) mg/dl Magnesium (1.8-2.4) mg/dl AST (15-37) U/L Troponin I (0-0.045) ng/ml Total Protein (6.4-8.2) gm/dl Albumin (3.4-5.0) gm/dl Beta-Hydroxybutyric Acd (0.2-2.81) mg/dl Procalcitonin 11.23 H (0-0.5) ng/ml Urine Protein (Negative) Urine Glucose (UA) (Negative) Urine Ketones (Negative) Urine Blood (Negative) Urine Bilirubin (Negative) Urine RBC (0-4) /hpf Urine WBC (0-5) /hpf Ur Epithelial Cells (0-5) /lpf Urine Bacteria (Negative) 03/21/21 03/21/21 03/21/21 Range/Units 07:48 07:48 08:48 WBC (4.8-10.8) K/uL RBC (4.7-6.1) M/uL Hgb (14.0-18.0) g/dL POC Hgb (14.0-18.0) g/dl Hct (42-52) % POC Hct (42-52) % Neutrophils # (Manual) (1.4-6.5) K/uL Total Absolute Neuts (1.4-6.5) K/uL Lymphocytes # (Manual) (1.2-3.4) K/uL Total Abs Lymphocytes (1.2-3.4) K/uL Monocytes # (Manual) (0.11-0.59) K/uL Basophils # (Manual) (0-0.2) K/uL Metamyelocytes # (Man) (0-0) K/uL APTT (21.0-31.0) Seconds VBG pH (7.36-7.41) VBG pCO2 (38-50) mmHg POC Sodium (135-144) mmol/L Sodium (136-145) mmol/L POC Potassium (3.3-5.0) mmol/L Potassium (3.5-5.1) mmol/L POC Chloride (101-112) mmol/L Chloride (98-107) mmol/L Carbon Dioxide (21-32) mmol/L POC Total CO2 (24-31) mmol/L Anion Gap (3-11) POC Anion Gap (16-25) mmol/L POC BUN (7-18) mg/dl BUN (7-18) mg/dl Creatinine (0.6-1.4) mg/dl POC Creatinine (0.6-1.3) mg/dl Glucose (70-99) mg/dl POC Glucose > 600 H* (70-99) mg/dl POC Glucose (other) (70-99) mg/dl Hemoglobin A1c 7.5 H (4.5-5.6) % Lactate (0.4-2.0) mmol/L Calcium (8.5-10.1) mg/dl POC Ioniz Calcium Bart (1.12-1.32) mmol/l Phosphorus 12.3 H (2.5-4.9) mg/dl Magnesium (1.8-2.4) mg/dl AST (15-37) U/L Troponin I (0-0.045) ng/ml Total Protein (6.4-8.2) gm/dl Albumin (3.4-5.0) gm/dl Beta-Hydroxybutyric Acd (0.2-2.81) mg/dl Procalcitonin (0-0.5) ng/ml Urine Protein (Negative) Urine Glucose (UA) (Negative) Urine Ketones (Negative) Urine Blood (Negative) Urine Bilirubin (Negative) Urine RBC (0-4) /hpf Urine WBC (0-5) /hpf Ur Epithelial Cells (0-5) /lpf Urine Bacteria (Negative) 03/21/21 03/21/21 03/21/21 Range/Units 09:44 09:58 10:00 WBC (4.8-10.8) K/uL RBC (4.7-6.1) M/uL Hgb (14.0-18.0) g/dL POC Hgb (14.0-18.0) g/dl Hct (42-52) % POC Hct (42-52) % Neutrophils # (Manual) (1.4-6.5) K/uL Total Absolute Neuts (1.4-6.5) K/uL Lymphocytes # (Manual) (1.2-3.4) K/uL Total Abs Lymphocytes (1.2-3.4) K/uL Monocytes # (Manual) (0.11-0.59) K/uL Basophils # (Manual) (0-0.2) K/uL Metamyelocytes # (Man) (0-0) K/uL APTT (21.0-31.0) Seconds VBG pH (7.36-7.41) VBG pCO2 (38-50) mmHg POC Sodium (135-144) mmol/L Sodium (136-145) mmol/L POC Potassium (3.3-5.0) mmol/L Potassium (3.5-5.1) mmol/L POC Chloride (101-112) mmol/L Chloride (98-107) mmol/L Carbon Dioxide (21-32) mmol/L POC Total CO2 (24-31) mmol/L Anion Gap (3-11) POC Anion Gap (16-25) mmol/L POC BUN (7-18) mg/dl BUN (7-18) mg/dl Creatinine (0.6-1.4) mg/dl POC Creatinine (0.6-1.3) mg/dl Glucose 969 H* (70-99) mg/dl POC Glucose > 600 H* (70-99) mg/dl POC Glucose (other) (70-99) mg/dl Hemoglobin A1c (4.5-5.6) % Lactate 4.4 H* (0.4-2.0) mmol/L Calcium (8.5-10.1) mg/dl POC Ioniz Calcium Bart (1.12-1.32) mmol/l Phosphorus (2.5-4.9) mg/dl Magnesium (1.8-2.4) mg/dl AST (15-37) U/L Troponin I (0-0.045) ng/ml Total Protein (6.4-8.2) gm/dl Albumin (3.4-5.0) gm/dl Beta-Hydroxybutyric Acd (0.2-2.81) mg/dl Procalcitonin (0-0.5) ng/ml Urine Protein (Negative) Urine Glucose (UA) (Negative) Urine Ketones (Negative) Urine Blood (Negative) Urine Bilirubin (Negative) Urine RBC (0-4) /hpf Urine WBC (0-5) /hpf Ur Epithelial Cells (0-5) /lpf Urine Bacteria (Negative) 03/21/21 03/21/21 03/21/21 Range/Units 10:34 10:34 11:31 WBC (4.8-10.8) K/uL RBC (4.7-6.1) M/uL Hgb (14.0-18.0) g/dL POC Hgb (14.0-18.0) g/dl Hct (42-52) % POC Hct (42-52) % Neutrophils # (Manual) (1.4-6.5) K/uL Total Absolute Neuts (1.4-6.5) K/uL Lymphocytes # (Manual) (1.2-3.4) K/uL Total Abs Lymphocytes (1.2-3.4) K/uL Monocytes # (Manual) (0.11-0.59) K/uL Basophils # (Manual) (0-0.2) K/uL Metamyelocytes # (Man) (0-0) K/uL APTT (21.0-31.0) Seconds VBG pH 7.01 L (7.36-7.41) VBG pCO2 23 L (38-50) mmHg POC Sodium (135-144) mmol/L Sodium 133 L D (136-145) mmol/L POC Potassium (3.3-5.0) mmol/L Potassium 5.8 H D (3.5-5.1) mmol/L POC Chloride (101-112) mmol/L Chloride 97 L (98-107) mmol/L Carbon Dioxide 7 L* (21-32) mmol/L POC Total CO2 (24-31) mmol/L Anion Gap 30.0 H (3-11) POC Anion Gap (16-25) mmol/L POC BUN (7-18) mg/dl BUN 55 H (7-18) mg/dl Creatinine 3.09 H (0.6-1.4) mg/dl POC Creatinine (0.6-1.3) mg/dl Glucose 902 H* (70-99) mg/dl POC Glucose (70-99) mg/dl POC Glucose (other) (70-99) mg/dl Hemoglobin A1c (4.5-5.6) % Lactate 3.8 H* (0.4-2.0) mmol/L Calcium 7.5 L (8.5-10.1) mg/dl POC Ioniz Calcium Bart (1.12-1.32) mmol/l Phosphorus (2.5-4.9) mg/dl Magnesium (1.8-2.4) mg/dl AST (15-37) U/L Troponin I (0-0.045) ng/ml Total Protein (6.4-8.2) gm/dl Albumin (3.4-5.0) gm/dl Beta-Hydroxybutyric Acd 130.44 H (0.2-2.81) mg/dl Procalcitonin (0-0.5) ng/ml Urine Protein (Negative) Urine Glucose (UA) (Negative) Urine Ketones (Negative) Urine Blood (Negative) Urine Bilirubin (Negative) Urine RBC (0-4) /hpf Urine WBC (0-5) /hpf Ur Epithelial Cells (0-5) /lpf Urine Bacteria (Negative) 03/21/21 03/21/21 03/21/21 Range/Units 11:31 12:43 Unknown WBC (4.8-10.8) K/uL RBC (4.7-6.1) M/uL Hgb (14.0-18.0) g/dL POC Hgb (14.0-18.0) g/dl Hct (42-52) % POC Hct (42-52) % Neutrophils # (Manual) (1.4-6.5) K/uL Total Absolute Neuts (1.4-6.5) K/uL Lymphocytes # (Manual) (1.2-3.4) K/uL Total Abs Lymphocytes (1.2-3.4) K/uL Monocytes # (Manual) (0.11-0.59) K/uL Basophils # (Manual) (0-0.2) K/uL Metamyelocytes # (Man) (0-0) K/uL APTT (21.0-31.0) Seconds VBG pH 7.11 L (7.36-7.41) VBG pCO2 24 L (38-50) mmHg POC Sodium (135-144) mmol/L Sodium (136-145) mmol/L POC Potassium (3.3-5.0) mmol/L Potassium (3.5-5.1) mmol/L POC Chloride (101-112) mmol/L Chloride (98-107) mmol/L Carbon Dioxide (21-32) mmol/L POC Total CO2 (24-31) mmol/L Anion Gap (3-11) POC Anion Gap (16-25) mmol/L POC BUN (7-18) mg/dl BUN (7-18) mg/dl Creatinine (0.6-1.4) mg/dl POC Creatinine (0.6-1.3) mg/dl Glucose 921 H* (70-99) mg/dl POC Glucose (70-99) mg/dl POC Glucose (other) (70-99) mg/dl Hemoglobin A1c (4.5-5.6) % Lactate (0.4-2.0) mmol/L Calcium (8.5-10.1) mg/dl POC Ioniz Calcium Bart (1.12-1.32) mmol/l Phosphorus (2.5-4.9) mg/dl Magnesium (1.8-2.4) mg/dl AST (15-37) U/L Troponin I (0-0.045) ng/ml Total Protein (6.4-8.2) gm/dl Albumin (3.4-5.0) gm/dl Beta-Hydroxybutyric Acd 121.28 H (0.2-2.81) mg/dl Procalcitonin (0-0.5) ng/ml Urine Protein 3+ H (Negative) Urine Glucose (UA) 2+ H (Negative) Urine Ketones 2+ H (Negative) Urine Blood 3+ H (Negative) Urine Bilirubin 1+ H (Negative) Urine RBC 5-10 H (0-4) /hpf Urine WBC 5-10 H (0-5) /hpf Ur Epithelial Cells 5-10 H (0-5) /lpf Urine Bacteria 1+ H (Negative) Diagnostic Findings CT SCAN OF THE ABDOMEN AND PELVIS WITHOUT IV CONTRAST CLINICAL HISTORY: Change in mental status. COMPARISON STUDY: No priors. TECHNIQUE: CT scan of the abdomen and pelvis is performed from the lung bases to the proximal femora. Images are reviewed in the axial, sagittal, and coronal planes. IV contrast was not administered for this examination. Note that the examination was performed in suboptimal fashion without oral and IV contrast. There is also streak and motion artifact. A dose lowering technique was utilized adhering to the principles of ALARA. FINDINGS: Lung bases: The heart is enlarged and without pericardial effusion. The coronary arteries are densely calcified. Evaluation of the lung bases is significantly degraded by motion. No airspace consolidation or pleural effusion is identified. Liver: The unenhanced liver is enlarged, measuring over 18 cm in length. The liver demonstrates diffusely diminished attenuation consistent with severe hepatic steatosis. There is no intrahepatic biliary ductal dilatation. Portal venous gas is noted. Gallbladder: Surgically absent noting clips in the gallbladder fossa. Spleen: Normal in size and attenuation. Pancreas: The unenhanced pancreas is atrophic and grossly unremarkable. Adrenal glands: Unremarkable. Kidneys: The unenhanced kidneys are normal in size and without hydronephrosis. There are no renal calculi identified. There is no evidence of contour deforming renal mass lesion. Abdominal vasculature: The abdominal aorta is normal in course and caliber noting advanced atherosclerotic calcification. Stomach and bowel: Postoperative changes consistent with a history of Rios-en-Y gastric bypass surgery. The small bowel loops are dilated with air-fluid levels, and measure up to 3.5 cm in diameter. There is extensive pneumatosis intestinalis throughout loops of small bowel in the midabdomen as well as mesenteric venous gas and surrounding infiltration. No transition point is identified and there is no definite bowel obstruction. Wall thickening is noted throughout the affected small bowel loops. The appendix is well-visualized and normal. Peritoneum: There is no intraperitoneal free air or abdominal ascites. Lymphadenopathy: None. Pelvic viscera: The bladder is decompressed around a [place] catheter and not well evaluated. Foci of intraluminal gas are likely related to instrumentation. The uterus is surgically absent. No adnexal lesion is seen. Skeletal structures: The skeletal structures are osteopenic. There is lumbosacral spondylosis with evidence of L3-L4 spinal fusion. No lytic or blastic lesions are seen. There are healed right pubic ring fractures. IMPRESSION: 1. Significantly suboptimal examination without IV contrast. The examination is also severely compromised by streak and motion artifact 2. There are numerous mildly dilated loops of small bowel with extensive pneumatosis intestinalis, mesenteric venous gas, and portal venous gas. These findings are highly concerning for small bowel ischemia. 3. Small bowel dilatation is nonspecific. This could be related to an ileus or possibly a bowel obstruction. No discrete transition point is identified. 4. No intraperitoneal free air is clearly seen. 5. There is postoperative change from Rios-en-Y gastric bypass surgery. 6. Cardiomegaly. 7. Hepatomegaly and severe hepatic steatosis. 8. Additional findings as above.
[2021-03-21 12:53] LABS: Base Excess VBG -20.4 mEq/L; Oxygen Saturation VBG 62.8 %; pH VBG 7.11 (7.36-7.41)
[2021-03-21 12:54] LABS: Beta-Hydroxybutyrate 121.28 mg/dl (0.2-2.81)
--- NOTE | 2021-03-21 13:07 | History & Physical Bridge Note ---
Date of Service March 21, 2021 History & Physical Bridge Note I have examined the patient, reviewed the History & Physical and in the interval since the performance of the History & Physical I have noted the following changes of clinical significance: no changes noted Supervising Physician Co-Signing Physician Notes Patient critically ill due to severe DKA. Also noticed pneumobilia will continue resuscitation severe acidosis, aggressive volume resuscitation with electrolyte correction. I discussed with cardiology, anesthesia, surgery. I have personally spent 40 minutes of critical care time in the direct management of this patient. This is a life/limb threatening event. This includes time spent evaluating patient, direct bedside care, chart review, placing orders, interpretation of diagnostic studies, discussion with c onsultants, patient, and/or family members regarding treatment decisions, as well as other required patient management activities. This time is exclusive of all separately billable procedures, and teaching time and separate from and in addition to any other critical care service time.
[2021-03-21 13:13] LABS: BUN Creatinine Ratio 17.7 (10-20); Calcium 7.1 mg/dl (8.5-10.1); Creatinine Clr Calc Pharmacy 28.3 ml/min; Est GFR (African American) 22.4 ml/min; Est GFR (Non-African American) 19.3 ml/min
[2021-03-21] MEDS ORDERED: BUPIVACAINE 0.5 % 5 MG/1 ML MPF 30ML VIAL ONE (14:00)
[2021-03-21] MEDS ORDERED: BACITRACIN OINT 15 GM TUBE ONE (14:00)
[2021-03-21] MEDS ORDERED: LIDOCAINE 1% LOCAL 20 ML VIAL ONE (14:01)
[2021-03-21] MEDS: PIPERACILLIN/TAZOBACTAM 4.5 GM in DEXTROSE 5% 100 ML IV SCH ×2 (14:13→23:19)
[2021-03-21 14:24] LABS: Potassium 4.9 mmol/L (3.5-5.1)
[2021-03-21] MEDS ORDERED: ONDANSETRON INJ 2 MG/ML 2 ML VIAL ONE (14:29)
[2021-03-21] MEDS ORDERED: DEXAMETHASONE SOD INJ 4 MG/ML VIAL ONE (14:29)
[2021-03-21] MEDS ORDERED: PROPOFOL IV EMULSION 10 MG/ML 20 ML VIAL IV ONE (14:29)
[2021-03-21] MEDS ORDERED: LIDOCAINE 2% 2 ML VIAL/AMP(20MG/ML) INFIL ONE (14:29)
[2021-03-21] MEDS ORDERED: PHENYLEPHRINE HCL 10 MG/ML VIAL ONE (14:30)
[2021-03-21] MEDS ORDERED: ETOMIDATE 2 MG/ML 20 ML VIAL IV ONE (14:30)
[2021-03-21] MEDS ORDERED: fentaNYL citrate 100 MCG/2 ML VIAL ONE (14:30)
[2021-03-21] MEDS ORDERED: CISATRACURIUM BESYLATE IV SOLN 2 MG/ML 10 ML VIAL IV ONE (14:30)
[2021-03-21 14:48] LABS: Beta-Hydroxybutyrate 120.89 mg/dl (0.2-2.81)
[2021-03-21 14:48] LABS: Beta-Hydroxybutyrate 103.07 mg/dl (0.2-2.81)
[2021-03-21 14:53] LABS: Base Excess VBG -14.1 mEq/L; pH VBG 7.28 (7.36-7.41)
[2021-03-21 15:15] LABS: BUN Creatinine Ratio 18.5 (10-20); Blood Urea Nitrogen 58 mg/dl (7-18); Calcium 6.9 mg/dl (8.5-10.1); Carbon Dioxide 11 mmol/L (21-32); Chloride 101 mmol/L (98-107); Creatinine Clr Calc Pharmacy 28.8 ml/min; Est GFR (African American) 22.9 ml/min; Est GFR (Non-African American) 19.8 ml/min; Glucose 711 mg/dl (70-99); Sodium 137 mmol/L (136-145)
--- NOTE | 2021-03-21 15:19 | Communication Note ---
Date of Service: March 21, 2021 Patient reassessed in person in ICU. Dr Glover also at the bedside. Repeat EKG performed per my request for reassessment after improvement in potassium, glucose and volume status. EKG 1511 SR a 88 bpm, mild upsloping ST depression in the inferior an lateral leads. Compared to earlier this am, the QRS duration has normalized with improvement in the potassium level, the marked ST depression present earlier today is much improved. Echo with normal LV wall motion and hyperdynamic LVEF. Patient with ongoing severe diffuse abdominal pain. I reviewed the general surgery consultation, and if surgical intervention for ischemic bowel is felt to be indicated, he is much improved from a cardiac perspective and this may be our window to offer him best chance in terms of favorable surgical intervention. Case discussed with Dr Corado of anesthesia in the ICU, who is also going to reach out to Dr Cross of critical for further coordination.
[2021-03-21] MEDS: NORMOSOL-R 1,000 ML IV SCH ×2 (15:20→23:02)
--- NOTE | 2021-03-21 15:32 | Anesthesiology Consultation ---
Date of Service March 21, 2021 Assessment & Plan Chart Review Chart Review: Acceptable Risk for Surgery (high risk. patient unlikely to survive without operation) and Patient NOT seen in Pre Admission Testing Consults Requested none ASA [id number] Proposed Anesthesia Anesthesia Type: General Anesthesia Line Insertion: Arterial line and Central Venous Catheter Risk / Benefits Reviewed With: PT / POA / Parent / Guardian, Accepts Plan and Informed Consent Obtained History Surgery Operation Date: 03/21/21 13:30 Proposed Procedures p Bowel Resection - Pita Orantes MD Height/Weight Height: 6 ft Weight: 100.2 kg Allergies Allergy/AdvReac Type Severity Reaction Status Date / Time nortriptyline Allergy Unknown ITCHING Verified 03/21/21 08:53 hydromorphone [From Dilaudid] AdvReac Unknown Nausea/Vomi Verified 03/21/21 08:53 ting Medications Home Medications Medication Instructions Recorded Confirmed Last Taken blood sugar diagnostic (Contour #10 ea 05/20/19 11/18/20 Unknown Next Test Strips) blood-glucose sensor (Dexcom G6 #3 ea 07/31/19 02/17/21 Unknown Sensor) cyanocobalamin (vitamin B-12) 1,000 mcg PO QAM 02/03/20 03/21/21 03/20/21 1,000 mcg capsule metoprolol succinate 25 mg 25 mg PO QAM 11/18/20 03/21/21 03/20/21 tablet,extended release 24 hr (Toprol XL) insulin lispro 100 unit/mL See Rx Instructions SQ .COMPLEX 02/23/21 03/21/21 03/21/21 subcutaneous solution (Humalog #50 ml U-100 Insulin) amlodipine 5 mg tablet (Norvasc) 5 mg PO QAM 03/21/21 03/21/21 03/20/21 cholecalciferol (vitamin D3) 50 2,000 units PO QAM 03/21/21 03/21/21 03/20/21 mcg (2,000 unit) capsule (Vitamin D3) lisinopril 40 mg tablet (Zestril) 40 mg PO QAM 03/21/21 03/21/21 03/20/21 spironolactone 25 mg tablet 25 mg PO BID 03/21/21 03/21/21 03/20/21 (Aldactone) Active Medications Generic Name Dose Route Start Last Admin Trade Name Freq PRN Reason Stop Dose Admin Insulin Human Regular 250 250 mls @ 17.3 mls/hr 03/21/21 08:30 03/21/21 15:17 units/ Sodium Chloride IV 04/20/21 08:29 20.8 units/hr .[id number] VICKY 20.8 mls/hr Titration Protocol 17.3 UNITS/HR Parenteral Electrolytes 1,000 mls @ 140 mls/hr 03/21/21 16:15 03/21/21 15:20 Normosol-R IV 04/20/21 16:14 140 mls/hr .Q7H9M VICKY Administration Norepinephrine Bitartrate 8 mg in 508 mls @ 11.453 mls/hr 03/21/21 12:00 0 03/21/21 14:22 Levophed/D5w IV 04/20/21 11:59 0.03 mcg/kg/min .Q24H VICKY 11.5 mls/hr Titration Protocol 0.03 MCG/KG/MIN Piperacillin Sod/Tazobactam 120 mls @ 30 mls/hr 03/21/21 14:00 03/21/21 14:13 Sod 4.5 gm/ Dextrose IV 03/31/21 08:59 30 mls/hr Q8H VICKY Administration Protocol Insulin Aspart 0 units 03/21/21 11:30 03/21/21 12:16 Insulin Aspart 100 Units/Ml 3 Ml Pen SC 04/20/21 11:29 Not Given ACHS VICKY NPO Date Last Intake of Fluids: 03/21/21 Time Last Intake of Fluids: 07:00 Date Last Intake of Solids: 03/21/21 Time Last Intake of Solids: 07:00 Past Medical History Medical History (Updated 03/21/21 @ 14:44 by Bridger Ragland DO) COPD (chronic obstructive pulmonary disease) Diabetes mellitus with diabetic polyneuropathy Diabetes type 1, controlled Diabetic peripheral neuropathy associated with type 1 diabetes mellitus History of pulmonary embolism Hx of recurrent vertebral fractures Hypertension Vitamin D deficiency Exercise / Class Metabolic Activity II 4-5 Yardwork/Stairs/Walk up hill Past Family History Family History Mother Alzheimer disease Hypertension Brother Diabetes A-fib Father Bone cancer Past Surgical History Surgical History Gastric bypass status for obesity History of back surgery History of carpal tunnel release of both wrists Hx of knee surgery Hx of shoulder surgery S/P cholecystectomy Ulnar nerve entrapment corrected Past Anesthesia History No Hx of Anesthesia Complications and No Family Hx of Anesthesia Complications History of PONV No Hx of PONV and No Hx of Motion Sickness Social History Smoking Status: Never smoker Hx Alcohol Use: Yes Physical Exam Vital Signs Last Vital Signs Temp 35.9 C L 03/21/21 14:00 Pulse 75 03/21/21 13:20 Resp 36 H 03/21/21 13:20 BP 107/54 L 03/21/21 12:32 Pulse Ox 100 03/21/21 13:20 Constitutional + altered mental status ENMT Mouth: + edentulous Thyromental Distance: > or= 3.5 Finger Breadths Mallampati Class: III Neck normal visual inspection Respiratory + tachypneic Auscultation: lungs clear to auscultation bilaterally Cardiovascular Rate/Rhythm: regular rate and regular rhythm Chest (Breasts) Chest: + vascular access device or port Neurologic moves all extremities Psychiatric Orientation: alert confused Testing Laboratory Results 03/21/21 07:48 03/21/21 14:36 PT 11.2 Seconds (9.0-12.0) 03/21/21 07:48 INR 1.1 (0.9-1.1) 03/21/21 07:48 APTT 36.7 Seconds (21.0-31.0) H 03/21/21 07:48 Hemoglobin A1c 7.5 % (4.5-5.6) H 03/21/21 07:48 Urine Color Yellow 03/21/21 Unknown Urine Appearance Slightly Cloudy (Clear) 03/21/21 Unknown Urine pH 5.0 (4.5-7.5) 03/21/21 Unknown Ur Specific [place] 1.025 (1.000-1.030) 03/21/21 Unknown Urine Protein 3+ (Negative) H 03/21/21 Unknown Urine Glucose (UA) 2+ (Negative) H 03/21/21 Unknown Urine Ketones 2+ (Negative) H 03/21/21 Unknown Urine Nitrite Negative (Negative) 03/21/21 Unknown Ur Leukocyte Esterase Negative (Negative) 03/21/21 Unknown Urine RBC 5-10 /hpf (0-4) H 03/21/21 Unknown Urine WBC 5-10 /hpf (0-5) H 03/21/21 Unknown Ur Epithelial Cells 5-10 /lpf (0-5) H 03/21/21 Unknown 03/21/21 03/21/21 03/21/21 09:58 08:48 07:47 POC Glucose > 600 H* > 600 H* POC Glucose (other) > 700 H* 03/21/21 03/21/21 07:41 07:38 POC Glucose > 600 H* > 600 H* POC Glucose (other)
[2021-03-21 15:34] LABS: Beta-Hydroxybutyrate > 46.00 mg/dl (0.2-2.81)
[2021-03-21] MEDS ORDERED: MIDAZOLAM HCL 1 MG/ML 2ML VIAL ONE ×2 (16:08→18:56)
[2021-03-21] MEDS ORDERED: VASOPRESSIN 20 UNIT/ML VIAL ONE (16:35)
[2021-03-21] MEDS ORDERED: SODIUM CHLORIDE 0.9% INJ 10 ML VIAL ONE (16:35)
[2021-03-21 16:44] LABS: Beta-Hydroxybutyrate 68.21 mg/dl (0.2-2.81)
[2021-03-21] MEDS ORDERED: SODIUM CHLORIDE 0.9% 250 ML IV PRN (17:25)
[2021-03-21 17:26] LABS: Allen Test Pos (Pos); Base Excess ABG -13.4 mEq/L (-9-1.8); HCO3 ABG 13 mmol/L (19-24); Oxygen Saturation ABG 99.4 % (90-95); PCO2 ABG 32 mmHg (35-46); PO2 ABG 195 mmHg (80-95); pH ABG 7.23 (7.35-7.45)
[2021-03-21 17:38] LABS: BUN Creatinine Ratio 17.9 (10-20); Calcium 6.8 mg/dl (8.5-10.1); Creatinine Clr Calc Pharmacy 28.1 ml/min; Est GFR (African American) 22.2 ml/min; Est GFR (Non-African American) 19.2 ml/min; Potassium 3.3 mmol/L (3.5-5.1)
[2021-03-21 17:39] LABS: Troponin I 16.3 ng/ml (0-0.045)
[2021-03-21 18:00] LABS: Hematocrit (blood only) 32.8 % (42-52); Hemoglobin 11.2 g/dL (14.0-18.0); Mean Corpuscular Hemoglobin 31.8 pg (25-34); Mean Corpuscular Hgb Conc 34.1 g/dL (32-36); Mean Corpuscular Volume 93.2 fL (80-100); Mean Platelet Volume 9.8 fL (7.4-10.4); Platelet Count 156 K/uL (130-400); RDW Standard Deviation 44.3 fL (36.4-46.3); Red Blood Count 3.52 M/uL (4.7-6.1); White Blood Count 7.11 K/uL (4.8-10.8)
[2021-03-21 18:08] LABS: Beta-Hydroxybutyrate 52.96 mg/dl (0.2-2.81)
--- NOTE | 2021-03-21 18:20 | Post Operative Brief Note ---
Immediate Post Op Note v1 Date of Surgery March 21, 2021 Pre & Post Diagnosis Operation Date: 03/21/21 13:30 Pre-Op Diagnosis: Severe Sepsis, Lactic Acid Acidosis, Small Bowel Ischemia, Acute Metabolic Encephalopathy, Diabetic Ketoacidosis Type 1, Non-ST Segment Elevation Myocardial Infarction Post-Op Diagnosis: Severe Sepsis, Lactic Acid Acidosis, Small Bowel Ischemia, Acute Metabolic Encephalopathy, Diabetic Ketoacidosis Type 1, Non-ST Segment Elevation Myocardial Infarction I identified the patient and participated in the time-out.: Yes Procedure Operation Date: 03/21/21 13:30 Actual Procedures p Exploratory Laparotomy, Small Bowel Resection(Not Applicable) - Pita Orantes MD Surgeon Pita Orantes MD Culture Room Worker Claude RAHMAN stephen Estimated Blood Loss 200 Findings Consistent with Post-Op Diagnosis small bowel necrosis, about 150cm Fluids 1500ml Specimens small bowel Drains Salinas Catheter and Gerald-Black Drain (10 fr flat drain) Complications none Disposition Accompanied Patient To Recovery: Yes
[2021-03-21] MEDS ORDERED: ePHEDrine sulfate 50 MG/ML AMP IV PRN (18:59)
[2021-03-21] MEDS ORDERED: ATROPINE SULFATE 0.1 MG/ML 10ML SYR IV PRN (18:59)
--- NOTE | 2021-03-21 19:02 | Communication Note ---
Date of Service: March 21, 2021 I have assumed case from DR Corado. planned pt remained intubated and brought to ICU and placed on a mechanical ventilator.Pt remains in critical condit ion.Report given to ICU physician.
[2021-03-21] MEDS ORDERED: CALCIUM CHLORIDE 10% 10 ML SYR IV ONE (19:04)
[2021-03-21 19:25] LABS: Basophils # (auto) 0.01 K/uL (0-0.2); Basophils % (auto) 0.1 %; Eosinophils # (auto) 0.01 K/uL (0-0.5); Eosinophils % (auto) 0.1 %; Hematocrit (blood only) 30.5 % (42-52); Hemoglobin 10.6 g/dL (14.0-18.0); Immature Granulocytes # (auto) 0.08 K/uL (0.00-0.02); Immature Granulocytes % (auto) 1.1 %; Lymphocytes # (auto) 0.23 K/uL (1.2-3.4); Lymphocytes % (auto) 3.3 %; Mean Corpuscular Hemoglobin 31.2 pg (25-34); Mean Corpuscular Volume 89.7 fL (80-100); Mean Platelet Volume 9.7 fL (7.4-10.4); Monocytes # (auto) 0.14 K/uL (0.11-0.59); Neutrophils # (auto) 6.52 K/uL (1.4-6.5); Neutrophils % (auto) 93.4 %; Platelet Count 142 K/uL (130-400); RDW Coefficient of Variation 12.9 % (11.5-14.5); RDW Standard Deviation 41.6 fL (36.4-46.3); White Blood Count 6.99 K/uL (4.8-10.8)
[2021-03-21 19:27] LABS: Beta-Hydroxybutyrate 34.71 mg/dl (0.2-2.81)
[2021-03-21] MEDS ORDERED: MIDAZOLAM HCL 1 MG/ML 2ML VIAL IV PRN (19:30)
[2021-03-21 19:32] LABS: Mean Corpuscular Hgb Conc 34.8 g/dL (32-36)
[2021-03-21 19:37] LABS: iSTAT Art Bld Gas pCO2 Correct 30 mmHg (35-46); iSTAT Art Bld Gas pH Corrected 7.346 (7.35-7.45); iSTAT Arterial Blood Gas HCO3 17 meg/L (19-24); iSTAT Arterial Blood Gas pCO2 32 mmHg (35-46); iSTAT Arterial Blood Gas pH 7.33 (7.35-7.45); iSTAT Arterial Blood Gas pO2 78 mmHg (80-95); iSTAT Arterial Blood Gas pO2 C 72; iSTAT Carbon Dioxide 18 mmol/L (24-31); iSTAT FiO2 50 %; iSTAT Hematocrit 30 % (42-52); iSTAT Hemoglobin 10.2 g/dl (14.0-18.0); iSTAT Potassium 3.1 mmol/L (3.3-5.0); iSTAT Site Art Line; iSTAT Sodium 141 mmol/L (135-144)
[2021-03-21 19:46] LABS: Calcium 7.3 mg/dl (8.5-10.1); Creatinine Clr Calc Pharmacy 27.9 ml/min; Est GFR (African American) 22.1 ml/min; Est GFR (Non-African American) 19.1 ml/min; Magnesium 2.3 mg/dl (1.8-2.4); Phosphorus 1.4 mg/dl (2.5-4.9); Potassium 3.3 mmol/L (3.5-5.1)
[2021-03-21] MEDS ORDERED: NORMOSOL-R 500 ML IV ONE ×3 (19:49→23:34)
[2021-03-21] MEDS ORDERED: POTASSIUM PHOS 3 MMOL/1 ML INFUSION IV STA (19:50)
[2021-03-21] MEDS ORDERED: MIDAZOLAM HCL 125 MG/250 ML BAG IV PRN (20:01)
[2021-03-21] MEDS ORDERED: MIDAZOLAM BOLUS FROM BAG IV PRN (20:01)
--- NOTE | 2021-03-21 20:01 | Anesthesiology Progress Note ---
Date of Service March 21, 2021 Anesthesia Post Procedure Vital Signs Vital Signs: Temp Pulse Pulse Resp BP BP Pulse Ox 03/21/21 19:08 35.6 C L 82 31 H 120/34 L 94 03/21/21 18:58 35.8 C L 83 32 H 115/31 L 91 03/21/21 18:48 36.5 C 83 29 H 159/61 H 94 03/21/21 18:40 82 30 H 94 03/21/21 15:31 37.1 C 87 42 H 119/58 L 100 03/21/21 15:16 37.0 C 85 33 H 135/61 100 03/21/21 15:01 36.8 C 84 26 H 127/61 100 03/21/21 15:00 37.1 C 03/21/21 14:46 36.6 C 83 41 H 109/74 100 03/21/21 14:31 36.4 C L 83 32 H 92/61 L 100 03/21/21 14:16 36.1 C L 81 40 H 130/63 100 03/21/21 14:01 35.8 C L 79 38 H 115/53 L 100 03/21/21 14:00 35.9 C L 03/21/21 13:40 35.4 C L 77 41 H 110/60 100 03/21/21 13:33 35.2 C L 77 38 H 100 03/21/21 13:20 34.8 C L 75 36 H 100 03/21/21 13:10 34.6 C L 75 35 H 100 03/21/21 13:00 34.4 C L 78 34 H 100 03/21/21 12:57 30 H 98 03/21/21 12:50 34.2 C L 77 30 H 100 03/21/21 12:47 34.2 C L 77 29 H 100 03/21/21 12:32 34.0 C L 70 31 H 107/54 L 100 03/21/21 12:30 99 03/21/21 12:17 33.8 C L 68 32 H 111/66 100 03/21/21 12:01 33.7 C L 71 27 H 84/45 L 100 03/21/21 12:00 34.9 C L 99 03/21/21 11:52 34.9 C L 67 12 87/62 L 100 03/21/21 11:46 33.6 C L 67 27 H 87/62 L 100 03/21/21 11:31 79 28 H 88/41 L 100 03/21/21 11:16 65 27 H 105/56 L 100 03/21/21 11:00 65 22 03/21/21 10:57 65 27 H 03/21/21 10:40 36.6 C 72 72 H 144/93 H 99 03/21/21 10:30 66 29 H 90/44 L 99 03/21/21 10:15 69 27 H 95/52 L 99 03/21/21 10:00 63 25 H 111/47 L 100 03/21/21 09:51 62 26 H 97/50 L 100 03/21/21 09:45 62 30 H 111/45 L 100 03/21/21 09:30 64 30 H 103/51 L 97 03/21/21 09:16 71 20 83/56 L 99 03/21/21 09:01 79 30 H 114/51 L 100 03/21/21 08:49 67 24 03/21/21 08:18 140 H 27 H 100 03/21/21 08:05 68 20 100 03/21/21 08:02 60 22 88/42 L 100 03/21/21 07:45 61 22 78/60 L 95 03/21/21 07:40 34.5 C L 68 27 H 91/47 L 96 Transfer of Care Handoff Completed per policy Notes Mental Status: see notes below Patient Amnestic to Procedure: Yes Nausea / Vomiting: adequately controlled Pain: adequately controlled Airway Patency, RR, SpO2: see Notes below BP & HR: see Notes below Hydration State: see Notes below Anesthetic Complications: no major complications apparent and see Notes below Notes: pt was in ICU in critical condition and remained in critical condition postop. As planned pt is to remain intubated and mechanically ventilated in ICU.
[2021-03-21 20:03] LABS: Beta-Hydroxybutyrate 19.49 mg/dl (0.2-2.81)
[2021-03-21] MEDS ORDERED: MIDAZOLAM HCL 125MG/250ML D5W ONE (20:08)
[2021-03-21] MEDS ORDERED: fentaNYL DRIP 1,250 MCG/250 ML BAG IV SCH (20:15)
[2021-03-21] MEDS ORDERED: POTASSIUM PHOSPHATE 24 MMOL in SODIUM CHLORIDE 0.9% 500 ML IV ONE (20:15)
[2021-03-21] MEDS: POTASSIUM CHLORIDE / WTR 20 MEQ/100 ML PLCT IV SCH ×3 (20:26→23:19)
[2021-03-21] MEDS: SPIRONOLACTONE 25 MG TAB PO SCH (20:55)
[2021-03-21 21:18] LABS: Hemoglobin 10.3 g/dL (14.0-18.0)
[2021-03-21 21:36] LABS: Allen Test POS (Pos); Base Excess ABG -4.8 mEq/L (-9-1.8); HCO3 ABG 18 mmol/L (19-24); PCO2 ABG 27 mmHg (35-46); PO2 ABG 136 mmHg (80-95); pH ABG 7.44 (7.35-7.45)
[2021-03-21 21:43] LABS: BUN Creatinine Ratio 16.5 (10-20); Creatinine Clr Calc Pharmacy 26.7 ml/min; Est GFR (African American) 20.9 ml/min; Magnesium 2.2 mg/dl (1.8-2.4); Phosphorus 0.6 mg/dl (2.5-4.9); Potassium 3.3 mmol/L (3.5-5.1)
[2021-03-21 21:54] LABS: Beta-Hydroxybutyrate 5.44 mg/dl (0.2-2.81)
[2021-03-21] MEDS ORDERED: CALCIUM CHLORIDE 10% 500 MG in SODIUM CHLORIDE 0.9% 50 ML IV ONE (22:00)
[2021-03-21 22:44] LABS: Allen Test Pos (Pos); Base Excess ABG -5.2 mEq/L (-9-1.8); HCO3 ABG 18 mmol/L (19-24); PCO2 ABG 27 mmHg (35-46); PO2 ABG 110 mmHg (80-95); pH ABG 7.44 (7.35-7.45)
[2021-03-21] MEDS ORDERED: PENDING D5 1/2NS+20mEq KCL IVF SCH (23:00)
[2021-03-21] MEDS ORDERED: PENDING 1/2NSS+20mEq KCL IVF SCH (23:00)
[2021-03-21 23:33] LABS: BUN Creatinine Ratio 17.6 (10-20); Calcium 6.9 mg/dl (8.5-10.1); Creatinine Clr Calc Pharmacy 26.4 ml/min; Est GFR (African American) 20.6 ml/min; Est GFR (Non-African American) 17.8 ml/min; Potassium 3.1 mmol/L (3.5-5.1); Troponin I 26.2 ng/ml (0-0.045)
--- NOTE | 2021-03-21 23:35 | Procedure Note ---
Procedure Note Date of Service March 21, 2021 Note Procedure: Arterial Line Placement Attending: Dr. Guillaume APC: Govind Underwood PA-C Indication: Hemodynamic monitoring Anesthesia: Lidocaine 1% Emergent Consent implied in the setting of clinical deterioration and need for close hemodynamic monitoring, ABG monitoring, frequent lab draws, etc. A time-out was completed verifying correct patient, procedure, site, positioning, and implant(s) or special equipment if applicable. Allens test was performed to ensure adequate perfusion. Patients RIGHT wrist was prepped and draped in the usual sterile fashion. Ultrasound guidance was used to aid needle placement. A 20g Arrow arterial line was introduced into the RIGHt Radial artery. Catheter was threaded, and the needle was removed with appropriate blood return. Good waveform was observed. The patient tolerated the procedure well. Co nfirmation of placement with ultrasound. Blood Loss: Minimal Complications: None Procedural Ultrasound Guidance: Procedure Date: 03/21/2021 Indication: Hemodynamic Monitoring, Frequent ABGs/Lab draws. Attending: Dr. Guillaume APC: Govind Underwood PA-C Artery Identified: YES Line confirmed in Artery with ultrasound: YES Complications: NONE Patient tolerated procedure: WELL Coding CPT Codes Tubes, Drains, and Vasc Access - Tubes, Drains, and Vasc Access: [id number] Place Catheter In Artery ([id number]) [facility] Procedure Codes (Charges) Tubes, Drains, and Vasc Access Procedure 2: Tubes, Drains, and Vasc Access: [id number] Place Catheter In Artery
--- NOTE | 2021-03-21 23:35 | Communication Note ---
Date of Service: March 21, 2021 Shortly after change of shift, the patient was noted to have increasing vasopressor requirement. Patient's urine output has been poor. A repeat ABG was obtained which demonstrated improvement in blood gas and no issues with oxygenation. Ventilation settings were titrated by respiratory therapy per protocol. Patient was provided a 500 cc Normosol bolus. Repeat labs were obtained. Patient was provided potassium phosphate for replacement. Orders placed for fentanyl and Versed drip secondary to increasing agitation. Repeat labs demonstrate hypocalcemia as well as ongoing hypokalemia. Orders placed for potassium replacement as well as 500 mg of IV calcium chloride. Patient was noted to have poor diastolic pressures on arterial line. Diastolic pressures on an IVP seemed appropriate. A line was changed to the RIGHT wrist which did not make a significant difference at that point. Patient received an additional dose of calcium chloride for increasing pressor requirement and his initial response was great to calcium chloride. Additionally, repeat labs show improvement in serum blood glucose and beta hydroxybutyrate. I am suspicious that with the patient's ongoing elevation in lactic acid that his metabolic acidosis is now more contributed to the lactic acidosis with what appears to be correction of his DKA to a degree. IV fluids changed to dextrose containing fluids. Vasopressin was added to help augment pressors. Patient's urine output has been poor. Salinas catheter was flushed twice by myself without significant change in output. Patient very tenuous at this time as his renal function continues to decline despite aggressive fluid management and vasopressor use. I do anticipate that the patient is undergoing significant fluid shift given the substantial bowel resection and DKA. We will continue with aggressive IV fluids, DKA protocol for correction, and titration of vasopressors in an effort to improve MAPs. I have personally spent 55 minutes of critical care time in the direct management of this patient. This is a life/limb threatening event. This includes time spent evaluating patient, direct bedside care, chart review, placing orders, interpretation of diagnostic studies, discussion with consultants, patient, and family members, as well as other required patient management activities. This time is exclusive of all separately billable procedures, and teaching time and separate from and in addition to any other critical care service time. Coding Level of Care Code Critical Care ea addt'l 30 min Time Spent (min) 55
[2021-03-21] MEDS ORDERED: CALCIUM CHLORIDE 10% 500 MG in SODIUM CHLORIDE 0.9% 50 ML IV STA (23:42)
[2021-03-21 23:44] LABS: Beta-Hydroxybutyrate 1.68 mg/dl (0.2-2.81)
[2021-03-21] MEDS: D5W AND 1/2NSS + 20MEQ KCL 20 MEQ/1,000 ML BAG IV SCH (23:52)
[2021-03-21] MEDS: ALBUMIN 25% 12.5 GM/50 ML VIAL IV SCH (23:53)
[2021-03-22] MEDS: NOREPINEPHRINE/D5W 8 MG/508 ML BAG IV SCH ×3 (00:06→13:22)
[2021-03-22] MEDS: ACETAMINOPHEN 1,000 MG/100 ML VIAL IV PRN ×2 (00:08→19:26)
[2021-03-22] MEDS: POTASSIUM CHLORIDE / WTR 20 MEQ/100 ML PLCT IV SCH ×2 (00:31→01:06)
[2021-03-22] MEDS: VASOPRESSIN 20 UNITS in 0.9 % SODIUM CHLORIDE 100 ML IV SCH ×2 (00:48→10:41)
[2021-03-22] MEDS: ALBUMIN 25% 12.5 GM/50 ML VIAL IV SCH ×3 (01:05→07:43)
[2021-03-22] MEDS: INSULIN REGULAR 250 UNITS in SODIUM CHLORIDE 0.9% 247.5 ML IV SCH ×4 (01:06→23:19)
[2021-03-22 01:53] LABS: Hematocrit (blood only) 28.4 % (42-52)
[2021-03-22 01:59] LABS: Base Excess ABG -6.2 mEq/L (-9-1.8); HCO3 ABG 18 mmol/L (19-24); PCO2 ABG 29 mmHg (35-46); PO2 ABG 106 mmHg (80-95)
[2021-03-22 02:06] LABS: Allen Test Pos (Pos)
--- NOTE | 2021-03-22 02:06 | Operative Report (OR) ---
DATE OF SURGERY: 03/21/2021. PREOPERATIVE DIAGNOSIS: Myocardial infarction.ischemia bowel, multiple organs failure, POSTOPERATIVE DIAGNOSIS: Necrosis small bowel, sepsis, multiple organ failure, myocardial infarction. OPERATION: Exploratory laparotomy, resection of small bowel. DANIELA drain x1. SURGEON: Pita Orantes MD ELECTRICAL ASSEMBLY SUPERVISOR: Boo Pepe MD ANESTHESIA: General. ESTIMATED BLOOD LOSS: About 200 mL. FINDINGS: Necrosis of the small bowel, length about 150 cm. COMPLICATIONS: None. INDICATIONS FOR THE PROCEDURE: This is a 65-year-old gentleman found lying down on the floor and nobody knew how long laid on the floor per his , and the patient was brought into the ER. The patient had a CT scan diagnosis of ischemic bowel and in that time, the patient had sepsis, myocardial infarction, and multiple organ failure. The patient was admitted to the ICU for resuscitation. After resuscitation, I recommend to take the patient to the OR, do the exploratory laparotomy, possible bowel resection and stoma. I did talk to the patient's about the benefit, risk, alternate procedure. I indicated the risks may include, but not limited to, such as bleeding, infection, sepsis, multiple organ failure, myocardial infarction, DVT, stroke, even and after the resection of the bowel, the patient may develop short bowel syndrome. The patient's understands. The patient's signed informed consent and I answered all questions. DETAILS OF PROCEDURE: after we identify pt and verify the procedure, We brought the patient to the OR, put the patient in the supine position on the OR table. The patient received SCD on bilateral legs to prevent DVT. Also, the patient received 4.5 grams Zosyn IV for prophylactic antibiotic. The patient received general anesthesia without difficulty. Abdomen was prepped and draped in routine sterile fashion. After timeout, we made a midline incision, getting into the abdomen without difficulty. Then, we found that there was some bloody fluid around the small bowel. Small bowel was already dark, is already and then we found the small bowel to to length about 150 cm involved the gastric bypass part. We resected the small bowel using HUMBERTO staple and also between the small bowel, there was about 30 cm alive bowel is pink. In that moment, we decided to save the 30 cm bowel, Then, we used the HUMBERTO staple transection and once complete removal of all the small bowel, we also used the endovascular to divide the mesentery. So we did small bowel to small bowel anastomosis and distal another small bowel to small bowel anastomosis. Then, also did a duodenal to small bowel anastomosis end-to-side anastomosis. We used the Endo- HUMBERTO cisco, all used were 80 cm staple to do the anastomosis. Then we reinforced the anastomosis by using 3-0 Vicryl and then checked all anastomoses were patent. keep about 100cm alive small bowel, no ischemia on large bowel, Then, we used normal warm saline to wash out the abdomen, put one 10 mm DANIELA drainage and then hemostasis obtained, then I closed the fascial layer by using PDS #1 continuous running, closed subcutaneous layer by using 2-0 Vicryl, closed the skin by using staple. Then, we put the dressing on. The patient tolerated the procedure well. All instrument, needle, sponge counts were correct x2 at the end of the case. The patient was transferred to ICU in stable condition. After the procedure, I did talk to the patient's about the OR finding and the procedure we did, she understands. DR. Pepe is bankruptcy legal assistant, his roles are exposure and attraction. Job ID: [id number] [facility]
[2021-03-22 02:16] LABS: BUN Creatinine Ratio 16.8 (10-20); Calcium 7.2 mg/dl (8.5-10.1); Creatinine Clr Calc Pharmacy 26.1 ml/min; Est GFR (African American) 20.3 ml/min; Est GFR (Non-African American) 17.5 ml/min; Magnesium 1.9 mg/dl (1.8-2.4); Phosphorus 1.9 mg/dl (2.5-4.9); Potassium 3.6 mmol/L (3.5-5.1)
[2021-03-22 05:10] LABS: Hematocrit (blood only) 28.9 % (42-52); Hemoglobin 10.3 g/dL (14.0-18.0); Mean Corpuscular Hemoglobin 31.8 pg (25-34); Mean Corpuscular Hgb Conc 35.6 g/dL (32-36); Mean Corpuscular Volume 89.2 fL (80-100); Mean Platelet Volume 9.5 fL (7.4-10.4); Platelet Count 132 K/uL (130-400); RDW Coefficient of Variation 12.8 % (11.5-14.5); Red Blood Count 3.24 M/uL (4.7-6.1); White Blood Count 11.93 K/uL (4.8-10.8)
[2021-03-22 05:13] LABS: Allen Test Pos (Pos); Base Excess ABG -6.8 mEq/L (-9-1.8); HCO3 ABG 17 mmol/L (19-24); Oxygen Saturation ABG 97.6 % (90-95); PCO2 ABG 29 mmHg (35-46); PO2 ABG 98 mmHg (80-95); pH ABG 7.39 (7.35-7.45)
[2021-03-22 05:26] LABS: Basophils # (auto) 0.01 K/uL (0-0.2); Basophils % (auto) 0.1 %; Immature Granulocytes % (auto) 0.8 %; Lymphocytes # (auto) 0.43 K/uL (1.2-3.4); Lymphocytes % (auto) 3.6 %; Monocytes # (auto) 0.55 K/uL (0.11-0.59); Monocytes % (auto) 4.6 %; Neutrophils # (auto) 10.84 K/uL (1.4-6.5); Neutrophils % (auto) 90.9 %; RBC Morphology Unremarkable
[2021-03-22 05:45] LABS: Albumin Level 2.3 gm/dl (3.4-5.0); BUN Creatinine Ratio 16.1 (10-20); Bilirubin,Total 0.6 mg/dl (0.2-1); Calcium 6.9 mg/dl (8.5-10.1); Creatinine Clr Calc Pharmacy 25.4 ml/min; Est GFR (African American) 19.6 ml/min; Est GFR (Non-African American) 16.9 ml/min; Globulin 2.3 gm/dl (2.5-4.0); Magnesium 1.8 mg/dl (1.8-2.4); Phosphorus 2.8 mg/dl (2.5-4.9); Potassium 4.2 mmol/L (3.5-5.1); Total Protein 4.6 gm/dl (6.4-8.2); Troponin I 27.4 ng/ml (0-0.045)
[2021-03-22] MEDS: PIPERACILLIN/TAZOBACTAM 4.5 GM in DEXTROSE 5% 100 ML IV SCH ×3 (06:18→23:17)
[2021-03-22] MEDS: D5W AND 1/2NSS + 20MEQ KCL 20 MEQ/1,000 ML BAG IV SCH ×3 (06:33→19:51)
--- NOTE | 2021-03-22 07:55 | XRay Report ---
XR chest 1V portable HISTORY: Endotracheal tube placement. Respiratory failure. Follow-up. COMPARISON: Chest 03/21/2021. FINDINGS: The endotracheal tube terminates 4 cm from the lyn. Nasogastric tube is looped at the ga stroesophageal junction/small hiatus hernia. No pneumothorax. No pleural effusions. The cardiac silho uette remains mildly enlarged. Bibasilar linear densities consistent with subsegmental atelectasis. N o new focal lung consolidations to suggest pneumonia. No evidence for pulmonary edema. Left jugular c entral venous catheter terminates at the proximal SVC. IMPRESSION: 1. The nasogastric tube is looped at the gastroesophageal junction/small hiatus hernia. This could be advanced by approximately 5 cm. 2. Endotracheal tube and left jugular central venous catheter are in good position. 3. Bibasilar linear densities favor subsegmental atelectasis. 4. This report was called/faxed to the referring physician following dictation. ACT 112: Negative or not required by law. Electronically signed by: Tapan De Leon M.D. 03/22/2021 7:53 AM
--- NOTE | 2021-03-22 08:10 | Critical Care Progress Note ---
Date of Service March 22, 2021 Assessment & Plan (1) Acute metabolic encephalopathy: Plan: Kirit Pittman is a 65 yo male with PMHx significant for T1DM (A1c 7.5 on 03/21/21, management with insulin pump), HTN, and h/o gastric bypass surgery who was admitted to [facility] ICU on 03/21 for severe DKA and small bowel necrosis, for close hemodynamic monitoring and aggressive fluid resuscitation with electrolyte correction. S/p laparotomy with 150cm small bowel resection and anastomosis on 03/21, and currently remains intubated. Neuro: Metabolic encephalopathy in context of DKA and small bowel ischemia. Patient is currently intubated and sedated. - continue Fentanyl and Versed for sedation - will wean as tolerated given plan for extubation today - close monitoring while in ICU Cardiac: 1. NSTEMI. EKG with inferolateral ST depressions and Troponin elevated at 27.4 and appears to be peaking. As of yesterday afternoon ST depressions are largely resolved. Suspect ischemia in context of profound dehydration/acidosis due to DKA and bowel necrosis. - Cardiology consulted - appreciate recs - TTE with EF 65-70%, LV size/systolic function appropriate, right ventricle moderately dilated with moderate reduction in RV systolic function - hold home Amlodipine, Lisinopril, Toprol XL, Spironolactone 2. Hypotension in context of DKA and lactic acidosis 2/2 bowel necrosis. Pressor requirements increased overnight but now improving. - held Vasopressin, continue Levophed and wean as tolerated to maintain MAP >65 - hopefully will be able to wean off after extubation - held home BP meds Respiratory: Patient remains intubated and sedated after bowel resection yesterday. - FiO2 weaned from 50% to 30% overnight - ABG improving - 7.39// this AM - no hypoxia on weaning trial this morning, will plan for extubation GI: CT A/P on admission with evidence of bowel ischemia. S/p resection of 150cm necrotic small bowel with anastomosis on 03/21. Procalcitonin increased from 11 --> 18.5 today and Lactate peaked at 6.9 overnight; both likely due to bowel necrosis. - surgery following - appreciate recs - continue broad-spectrum antibiotic coverage with Zosyn - continue NG tube and right abdomen drain RENAL/LYTES: 1. Hypocalcemia with iCa ~1.00, hypophosphatemia down to 0.6 overnight, and hypokalemia down to 3.1 overnight are all due to DKA and profound lactic acidosis 2/2 necrotic small bowel. - continue close electrolyte monitoring q4-6H and replete as necessary 2. RONDA likely due to profound dehydration and acidosis 2/2 DKA and necrotic small bowel. Hypoalbuminemia and post-op fluid shifts are also contributing to persistent RONDA. Lastly, building of sedative metabolites is also likely contributing. May improve after extubation - continue with aggressive fluid resuscitation and broad-spectrum abx - extubate and wean off of sedatives as mentioned above : Patient had decreased urine output overnight likely due to hypovolemia and increased pressor requirements. Will likely improve as overall status improves - continue urinary Salinas catheter - strict I/Os ENDO: DKA. Initial pH 6.85, HCO3 of 5, AG of 32, BHB 144.57. Likely due to malfunction of new insulin pump, as the patient is well-controlled overall with A1c 7.5 during this hospitalization. Currently DKA is resolved with pH 7.39, Bicarb 17, BSG <200 and normalized BHB. - will continue Insulin gtt for now, may be able to convert to SQ later today - continue with hyperglycemic management per ICU - continue mIVFs with D5 1/2NSS + 20mEq KCl @ 150cc/hr HEME: Normocytic anemia, Hgb 10.9 and MCV 97.7. No active signs of bleeding. Likely in context of chronic diabetic kidney disease. - monitor CBC ID: S/p resection of necrotic small bowel yesterday, with elevated procalcitonin and lactate. MRSA nares negative and CXR without signs of pneumonia. - will continue with Zosyn as stated above - Monitor fever curve LINES/IV ACCESS - L IJ CVC, R radial a-line, PIVs intact. DVT PROPHYLAXIS - Will start Heparin 5000 units SQ Q12H tonight, 24 hours after surgery. Dispo: continue ICU care in this critically ill patient Thank you for allowing us to be part of this patient's care. Please refer to Dr. Guillaume's documentation for any further recommendations. (2) DKA, type 1: (3) NSTEMI (non-ST elevated myocardial infarction): (4) DKA (diabetic ketoacidosis): (5) Hypermagnesemia: (6) Severe sepsis: (7) Lactic acid acidosis: (8) Small bowel ischemia: (9) Anemia: (10) Hyperphosphatemia: (11) Hyperkalemia: (12) Hypertension: Admission and Anticipated Discharge Date Admission Date: March 21, 2021 Supervising Physician Co-Signing Physician Notes Dr. Carranza was resident physician during care of patient. I separately evaluated patient for solano portions of the history and the exam. I was present during the critical portion of medical decision making, and I discussed the case with the resident. I generally agree with the findings and plan. Patient's vasoactive medication requirements are decreasing, he has maintained his blood gas, he has required increase sedatives. He is tolerating pressure support ventilation I feel it is safest to proceed with extubation given improvements and a stabilized creatinine I would be more concerned about accumulation of metabolites from sedatives he is at risk for reintubation. We will continue insulin infusion at this point as he is requiring vasoactive medications hopefully transition later today or tomorrow to subcutaneous insulin. Patient critically ill Patient discussed on multidisciplinary rounds Subjective Patient had increasing pressor requirements overnight; Levophed was significantly increased and Vasopressin was added as well. He received several Albumin infusions overnight and his pressors have been subsequently weaned back down this morning. Vasopressin was just held this morning. Insulin and IVFs running. Patient is intubated and sedated. Review of Systems Review of Systems: Unobtainable due to endotracheal tube Physical Exam Physical Exam: General: Patient is intubated and sedated. HEENT: Atraumatic, normocephalic. ETT in place. Pulm: CTAB A&P. -wheezes, -rales, -rhonchi. Patient is currently in sync with vent. Cardiac: RRR, -mrg. Radial pulses intact and symmetrical. No LE edema. However lower extremities are cold and pale with weak but palable dorsalis pedis pulses Abdominal: soft and non-distended, laparotomy dressing c/d/i Skin: warm, dry, no rash. L IJ CVC and R radial a-line in place. Results & Data Results & Data ([facility]) Vital Signs (Past 12 Hours) Vital Signs Temp Pulse Resp BP Pulse Ox 03/22/21 07:00 37.1 C 76 134/69 94 03/22/21 06:45 91 H 171/76 H 92 03/22/21 06:29 75 135/71 95 03/22/21 06:14 76 150/72 H 94 03/22/21 05:59 72 148/73 H 96 03/22/21 05:44 73 150/75 H 96 03/22/21 05:29 73 146/75 H 97 03/22/21 05:14 71 145/69 H 96 03/22/21 05:02 77 26 H 97 03/22/21 04:59 76 170/85 H 98 03/22/21 04:44 71 150/76 H 95 03/22/21 04:29 71 149/77 H 95 03/22/21 04:14 72 142/78 H 98 03/22/21 04:00 37.2 C 28 H 98 03/22/21 03:59 83 165/82 H 98 03/22/21 03:44 73 147/74 H 98 03/22/21 03:29 74 143/71 H 98 03/22/21 03:14 72 133/68 98 03/22/21 02:59 77 159/80 H 98 03/22/21 02:44 71 139/73 98 03/22/21 02:29 73 131/68 98 03/22/21 02:14 71 137/67 98 03/22/21 01:59 73 130/69 98 03/22/21 01:44 73 149/70 H 98 03/22/21 01:29 71 136/70 98 03/22/21 00:59 73 145/72 H 98 03/22/21 00:54 73 28 H 98 03/22/21 00:44 76 119/60 98 03/22/21 00:29 84 115/52 L 94 03/22/21 00:14 87 161/63 H 91 03/22/21 00:00 37.7 C H 31 H 03/21/21 23:59 88 153/63 H 92 03/21/21 23:44 86 124/53 L 97 03/21/21 23:31 84 116/54 L 95 03/21/21 23:28 86 107/51 L 91 03/21/21 23:14 93 H 157/61 H 94 03/21/21 22:55 85 129/57 L 93 03/21/21 22:44 82 127/52 L 96 03/21/21 22:29 86 160/59 H 97 08/24/21 22:15 85 32 H 97 03/21/21 22:14 87 143/59 H 98 03/21/21 21:57 80 115/52 L 97 03/21/21 21:44 84 133/54 L 96 03/21/21 21:31 82 116/52 L 99 03/21/21 21:29 83 119/53 L 98 03/21/21 21:17 84 126/52 L 98 Critical Care Time I have personally spent 35 minutes of critical care time in the direct management of this patient. This is a life/limb threatening event. This includes time spent evaluating patient, direct bedside care, chart review, placing orders, interpretation of diagnostic studies, discussion with consultants, patient, and/or family members regarding treatment decisions, as well as other required patient management activities. This time is exclusive of all separately billable procedures, and teaching time and separate from and in addition to any other critical care service time. Resident Activity Tracking Resident Involvement: Resident Care Provided Care Provided: Adult [facility] Medicine
--- NOTE | 2021-03-22 08:52 | Cardiology Progress Note ---
Date of Service March 22, 2021 Assessment & Plan (1) DKA (diabetic ketoacidosis): (2) RONDA (acute kidney injury): (3) Hyperkalemia: (4) NSTEMI (non-ST elevated myocardial infarction): (5) Acute intestinal ischemia: Plan: 65-year-old type I diabetic presents with 24 hours of progressive severe generalized illness, nausea, and is been found to be in DKA with blood glucose greater than 600 mg/dL. Ischemic small bowel noted in operating room yesterday, with 150 cm of small bowel resected and subsequent end-to-end anastomosis. Troponin has continued to climb, 27.4 this morning, but EKG is reassuring, as previously noted, normal left ventricular systolic function with normal to hyperdynamic LVEF noted on echo 03/21/2021. I believe the ischemic EKG changes and troponin evidence of myocardial necrosis is related to demand ischemia in the setting of his severe noncardiac illness. Continue supportive care, patient is on norepinephrine infusion 0.12 mcg/kg/min, vasopressin 0.02 units/min, insulin infusion, D5W with half-normal saline and 20 mEq potassium, piperacillin tazobactam, Versed, and fentanyl. Repeat EKG and troponin tomorrow. Admission and Anticipated Discharge Date Admission Date: March 21, 2021 Subjective Patient seen in follow-up. Events from last night noted. Blood pressure stable at present at 126/67. Urine output somewhat improved overnight over the last few hours. Review of Systems Review of Systems: Unobtainable due to endotracheal tube Physical Exam Physical Exam: Temp Pulse Resp BP Pulse Ox 37.1 C 74 26 H 128/67 96 03/22/21 07:00 03/22/21 08:14 03/22/21 05:02 03/22/21 08:14 03/22/21 08:14 Constitutional: + ill appearing ENMT: Endotracheal tube in place Respiratory: Mildly reduced breath sounds at the bases Cardiovascular: RRR, no murmur, no edema Gastrointestinal (Abdomen): Dressing over midline incision, not removed, [address] Skin: Feet/toes cyanotic, cool to the touch Neurologic: Agitated on lower levels of sedation, currently sedated. Results & Data ([facility]) Laboratory Results Cardiac Enzymes 03/21/21 03/21/21 03/21/21 Range/Units 14:36 16:45 16:45 AST (15-37) U/L Troponin I 11.700 H* 16.300 H* Cancelled (0-0.045) ng/ml 03/21/21 03/22/21 Range/Units 22:30 04:59 AST 650 H (15-37) U/L Troponin I 26.200 H* 27.400 H* (0-0.045) ng/ml CBC 03/21/21 03/21/21 03/21/21 Range/Units 16:45 19:09 21:05 WBC 7.11 D 6.99 (4.8-10.8) K/uL RBC 3.52 L 3.40 L (4.7-6.1) M/uL Hgb 11.2 L 10.6 L 10.3 L (14.0-18.0) g/dL Hct 32.8 L 30.5 L 29.0 L (42-52) % Plt Count 156 142 (130-400) K/uL Neut # (Auto) 6.52 H (1.4-6.5) K/uL Lymph # (Auto) 0.23 L (1.2-3.4) K/uL Millard # (Auto) 0.14 (0.11-0.59) K/uL Eos # (Auto) 0.01 (0-0.5) K/uL Baso # (Auto) 0.01 (0-0.2) K/uL 03/22/21 03/22/21 Range/Units 01:39 04:59 WBC 11.93 H (4.8-10.8) K/uL RBC 3.24 L (4.7-6.1) M/uL Hgb 10.0 L 10.3 L (14.0-18.0) g/dL Hct 28.4 L 28.9 L (42-52) % Plt Count 132 (130-400) K/uL Neut # (Auto) 10.84 H (1.4-6.5) K/uL Lymph # (Auto) 0.43 L (1.2-3.4) K/uL Millard # (Auto) 0.55 (0.11-0.59) K/uL Eos # (Auto) 0.00 (0-0.5) K/uL Baso # (Auto) 0.01 (0-0.2) K/uL Comprehensive Metabolic Panel 03/21/21 03/21/21 03/21/21 Range/Units 10:00 10:34 11:31 Sodium 133 L D (136-145) mmol/L Potassium 5.8 H D (3.5-5.1) mmol/L Chloride 97 L (98-107) mmol/L Carbon Dioxide 7 L* (21-32) mmol/L BUN 55 H (7-18) mg/dl Creatinine 3.09 H (0.6-1.4) mg/dl Glucose 969 H* 902 H* 921 H* (70-99) mg/dl Calcium 7.5 L (8.5-10.1) mg/dl AST (15-37) U/L ALT (12-78) U/L Alkaline Phosphatase (45-117) U/L Total Protein (6.4-8.2) gm/dl Albumin (3.4-5.0) gm/dl 03/21/21 03/21/21 03/21/21 Range/Units 12:43 13:47 14:36 Sodium 133 L 137 (136-145) mmol/L Potassium 4.9 D 4.0 D (3.5-5.1) mmol/L Chloride 98 101 (98-107) mmol/L Carbon Dioxide 9 L* 11 L (21-32) mmol/L BUN 57 H 58 H (7-18) mg/dl Creatinine 3.19 H 3.13 H (0.6-1.4) mg/dl Glucose 868 H* 822 H* 711 H* (70-99) mg/dl Calcium 7.1 L 6.9 L (8.5-10.1) mg/dl AST (15-37) U/L ALT (12-78) U/L Alkaline Phosphatase (45-117) U/L Total Protein (6.4-8.2) gm/dl Albumin (3.4-5.0) gm/dl 03/21/21 03/21/21 03/21/21 Range/Units 15:50 16:45 17:45 Sodium 140 (136-145) mmol/L Potassium 3.3 L D (3.5-5.1) mmol/L Chloride 105 (98-107) mmol/L Carbon Dioxide 15 L (21-32) mmol/L BUN 57 H (7-18) mg/dl Creatinine 3.21 H (0.6-1.4) mg/dl Glucose 647 H* 598 H* 558 H* (70-99) mg/dl Calcium 6.8 L (8.5-10.1) mg/dl AST (15-37) U/L ALT (12-78) U/L Alkaline Phosphatase (45-117) U/L Total Protein (6.4-8.2) gm/dl Albumin (3.4-5.0) gm/dl 03/21/21 03/21/21 03/21/21 Range/Units 19:09 21:05 22:30 Sodium 142 143 143 (136-145) mmol/L Potassium 3.3 L 3.3 L 3.1 L (3.5-5.1) mmol/L Chloride 108 H 109 H 108 H (98-107) mmol/L Carbon Dioxide 18 L 18 L 18 L (21-32) mmol/L BUN 58 H 56 H 60 H (7-18) mg/dl Creatinine 3.23 H 3.38 H 3.42 H (0.6-1.4) mg/dl Glucose 480 H* 373 H* 323 H* (70-99) mg/dl Calcium 7.3 L 7.0 L 6.9 L (8.5-10.1) mg/dl AST (15-37) U/L ALT (12-78) U/L Alkaline Phosphatase (45-117) U/L Total Protein (6.4-8.2) gm/dl Albumin (3.4-5.0) gm/dl 03/22/21 03/22/21 Range/Units 01:39 04:59 Sodium 145 144 (136-145) mmol/L Potassium 3.6 D 4.2 D (3.5-5.1) mmol/L Chloride 112 H 112 H (98-107) mmol/L Carbon Dioxide 18 L 18 L (21-32) mmol/L BUN 58 H 57 H (7-18) mg/dl Creatinine 3.46 H 3.56 H (0.6-1.4) mg/dl Glucose 197 H 149 H (70-99) mg/dl Calcium 7.2 L 6.9 L (8.5-10.1) mg/dl AST 650 H (15-37) U/L ALT 129 H (12-78) U/L Alkaline Phosphatase 59 (45-117) U/L Total Protein 4.6 L D (6.4-8.2) gm/dl Albumin 2.3 L (3.4-5.0) gm/dl Diagnostic Findings Repeat EKG performed this morning at 802 reveals sinus rhythm at 73 bpm, incomplete right bundle branch block, the previously noted diffuse ST segment depression has resolved. The QRS has narrowed.
[2021-03-22] MEDS: INSULIN ASPART 100 UNITS/ML 3 ML PEN SC SCH ×4 (08:59→22:03)
[2021-03-22] MEDS ORDERED: METOPROLOL SUCC 25MG EXT REL TAB PO SCH (09:00)
[2021-03-22] MEDS ORDERED: amLODIPine BESYLATE 5 MG TAB PO SCH (09:00)
[2021-03-22] MEDS ORDERED: lisinopril 40 MG TAB PO SCH (09:00)
--- NOTE | 2021-03-22 09:12 | Electrocardiogram Report ---
Test Reason : Blood Pressure : / mmHG Vent. Rate : 088 BPM Atrial Rate : 088 BPM P-R Int : 132 ms QRS Dur : 090 ms QT Int : 436 ms P-R-T Axes : 054 -23 -02 degrees QTc Int : 527 ms Poor data quality, interpretation may be adversely affected Normal sinus rhythm Nonspecific ST abnormality Prolonged QT Abnormal ECG When compared with ECG of 21-MAR-2021 08:20, (unconfirmed) Questionable change in QRS duration Confirmed by Kevin Calhoun ([id number]) on 03/22/2021 9:12:16 AM Referred By: REFERRED SELF Confirmed By:Keivn Calhoun
--- NOTE | 2021-03-22 09:15 | Electrocardiogram Report ---
Test Reason : Blood Pressure : / mmHG Vent. Rate : 073 BPM Atrial Rate : 073 BPM P-R Int : 130 ms QRS Dur : 092 ms QT Int : 420 ms P-R-T Axes : 048 -20 037 degrees QTc Int : 462 ms Normal sinus rhythm Incomplete right bundle branch block Septal infarct , age undetermined Abnormal ECG When compared with ECG of 21-MAR-2021 15:11, (unconfirmed) Incomplete right bundle branch block is now Present Septal infarct is now Present Confirmed by Kevin Calhoun ([id number]) on 03/22/2021 9:15:33 AM Referred By: REFERRED SELF Confirmed By:Kevin Calhoun
[2021-03-22 09:42] LABS: BUN Creatinine Ratio 16.3 (10-20); Calcium 6.9 mg/dl (8.5-10.1); Creatinine Clr Calc Pharmacy 25.2 ml/min; Est GFR (African American) 19.3 ml/min; Est GFR (Non-African American) 16.7 ml/min; Magnesium 2.2 mg/dl (1.8-2.4); Potassium 4.5 mmol/L (3.5-5.1)
[2021-03-22] MEDS: CHOLECALCIFEROL 1,000 UNITS 25 MCG TAB PO SCH (09:42)
[2021-03-22] MEDS: CYANOCOBALAMIN 500 MCG TABLET (VITAMIN B-12) PO SCH (09:43)
[2021-03-22] MEDS: SPIRONOLACTONE 25 MG TAB PO SCH (09:43)
[2021-03-22] MEDS ORDERED: CALCIUM CHLORIDE 10% 1,000 MG in SODIUM CHLORIDE 0.9% 50 ML IV ONE (09:45)
--- NOTE | 2021-03-22 09:54 | Billing Data ---
Date of Service March 22, 2021 Coding Level of Care Code Critical Care 1st - mins
[2021-03-22 10:13] LABS: Phosphorus 3.4 mg/dl (2.5-4.9)
--- NOTE | 2021-03-22 12:10 | Progress Note ---
Date of Service March 22, 2021 Assessment & Plan (1) Severe sepsis: (2) Lactic acid acidosis: (3) Small bowel ischemia: Plan: pt is a 65 year-old male who was found on home floor, pt had abnormal labs, high WBC, troponin 5.5, blood surgar, 1000, CT scan finding, ischemia of bowel, Plan, pt is in ICU for resuscitation, once pt's condition is stable, I recommend to do exploratory laparotomy, possible bowel resection, stoma, D/W the benefits, risks and alternative of the surgery, with pt's , the risks - infection, bleeding, sepsis, multiple organs failure, DVT, SD, stoke, , pt's understood, she agrees with the surgery, I answered all questions, 03/22/2021 12:04 PM F/U resection small bowel for necrotic bowel, doing better, continue treatment, reduce IV fluid, consult vascular surgeon for left foot ischemia, repeat labs in morning, will F/U, Thanks ICU team take care this pt, (4) Acute metabolic encephalopathy: (5) DKA, type 1: (6) NSTEMI (non-ST elevated myocardial infarction): Admission and Anticipated Discharge Date Admission Date: March 21, 2021 Supervising Physician Co-Signing Physician Notes Dr. Carranza was resident physician during care of patient. I separately evaluated patient for [place] portions of the history and the exam. I was present during the critical portion of medical decision making, and I discussed the case with the resident. I generally agree with the findings and plan. Patient's vasoactive medication requirements are decreasing, he has maintained his blood gas, he has required increase sedatives. He is tolerating pressure support ventilation I feel it is safest to proceed with extubation given improvements and a stabilized creatinine I would be more concerned about accumulation of metabolites from sedatives he is at risk for reintubation. We will continue insulin infusion at this point as he is requiring vasoactive medications hopefully transition later today or tomorrow to subcutaneous insulin. Patient critically ill Patient discussed on multidisciplinary rounds Subjective Patient had increasing pressor requirements overnight; Levophed was significantly increased and Vasopressin was added as well. He received several Albumin infusions overnight and his pressors have been subsequently weaned back down this morning. Vasopressin was just held this morning. Insulin and IVFs running. Patient is intubated and sedated. 03/22/2021 12:01PM, F/U S/P exp lap, resection small bowel, extubated, more awake, Physical Exam Eyes: PERRL, conjunctivae normal, anicteric sclerae Neck: trachea midline, no thyromegaly Respiratory: normal respiratory effort, lungs clear to auscultation Cardiovascular: RRR, no murmur, no edema Gastrointestinal (Abdomen): soft, some tenderness at incision site, no distend, no rebound pain, BS +, Musculoskeletal: Extremities: + foot abnormality (big tor blud color, distal left foot pulse -, right side foot distal pulse ) Left Skin: no rashes, warm and dry Neurologic: alert, awake, Results & Data ([facility]) Vital Signs (Past 12 Hours) Vital Signs Temp Pulse Resp BP Pulse Ox Pulse Ox 03/22/21 11:44 93 H 25 H 162/65 H 86 L 03/22/21 11:29 92 H 25 H 161/74 H 90 03/22/21 11:14 87 24 167/71 H 88 L 03/22/21 10:59 93 H 144/106 H 92 03/22/21 10:44 91 H 169/68 H 90 03/22/21 10:29 91 H 160/63 H 92 03/22/21 10:14 82 147/79 H 97 03/22/21 09:59 77 133/63 94 03/22/21 09:44 79 129/60 95 03/22/21 09:29 77 124/60 96 03/22/21 09:14 88 139/63 96 03/22/21 08:59 74 141/70 H 95 03/22/21 08:44 74 139/74 95 03/22/21 08:29 74 136/73 97 03/22/21 08:14 74 128/67 96 03/22/21 08:00 14 03/22/21 07:59 76 131/67 97 03/22/21 07:44 77 119/60 95 03/22/21 07:40 80 21 95 03/22/21 07:39 98 03/22/21 07:37 85 21 94 03/22/21 07:29 90 190/105 H 91 03/22/21 07:00 37.1 C 76 134/69 94 03/22/21 06:45 91 H 171/76 H 92 03/22/21 06:29 75 135/71 95 03/22/21 06:14 76 150/72 H 94 03/22/21 05:59 72 148/73 H 96 03/22/21 05:44 73 150/75 H 96 03/22/21 05:29 73 146/75 H 97 03/22/21 05:14 71 145/69 H 96 03/22/21 05:02 77 26 H 97 03/22/21 04:59 76 170/85 H 98 03/22/21 04:44 71 150/76 H 95 03/22/21 04:29 71 149/77 H 95 03/22/21 04:14 72 142/78 H 98 03/22/21 04:00 37.2 C 28 H 98 03/22/21 03:59 83 165/82 H 98 03/22/21 03:44 73 147/74 H 98 03/22/21 03:29 74 143/71 H 98 03/22/21 03:14 72 133/68 98 03/22/21 02:59 77 159/80 H 98 03/22/21 02:44 71 139/73 98 03/22/21 02:29 73 131/68 98 03/22/21 02:14 71 137/67 98 03/22/21 01:59 73 130/69 98 03/22/21 01:44 73 149/70 H 98 03/22/21 01:29 71 136/70 98 03/22/21 00:59 73 145/72 H 98 03/22/21 00:54 73 28 H 98 03/22/21 00:44 76 119/60 98 03/22/21 00:29 84 115/52 L 94 03/22/21 00:14 87 161/63 H 91 Laboratory Results Abnormal lab results 03/21/21 03/21/21 03/21/21 Range/Units 11:31 11:31 12:43 WBC (4.8-10.8) K/uL RBC (4.7-6.1) M/uL Hgb (14.0-18.0) g/dL POC Hgb (14.0-18.0) g/dl Hct (42-52) % POC Hct (42-52) % Neut # (Auto) (1.4-6.5) K/uL Lymph # (Auto) (1.2-3.4) K/uL Immature Gran # (Auto) (0.00-0.02) K/uL POC pH (7.35-7.45) POC pCO2 (35-46) mmHg POC pO2 (80-95) mmHg POC HCO3 (19-24) stacy/L POC Total CO2 (24-31) mmol/L ABG pH (7.35-7.45) ABG pH (Temp Correct) (7.35-7.45) ABG pCO2 (35-46) mmHg ABG pCO2 (Temp Corrct (35-46) mmHg ABG pO2 (80-95) mmHg ABG HCO3 (19-24) mmol/L ABG O2 Saturation (90-95) % ABG Base Excess (-9-1.8) mEq/L VBG pH (7.36-7.41) VBG pCO2 (38-50) mmHg Sodium 133 L (136-145) mmol/L POC Potassium (3.3-5.0) mmol/L Potassium (3.5-5.1) mmol/L Chloride (98-107) mmol/L Carbon Dioxide 9 L* (21-32) mmol/L Anion Gap 26.0 H (3-11) BUN 57 H (7-18) mg/dl Creatinine 3.19 H (0.6-1.4) mg/dl Glucose 921 H* 868 H* (70-99) mg/dl POC Glucose (70-99) mg/dl POC Glucose (other) (70-99) mg/dl Lactate 3.8 H* (0.4-2.0) mmol/L Calcium 7.1 L (8.5-10.1) mg/dl Ionized Calcium (1.12-1.32) mmol/L Phosphorus (2.5-4.9) mg/dl AST (15-37) U/L ALT (12-78) U/L Troponin I (0-0.045) ng/ml Total Protein (6.4-8.2) gm/dl Albumin (3.4-5.0) gm/dl Globulin (2.5-4.0) gm/dl Beta-Hydroxybutyric Acd 121.28 H 120.89 H (0.2-2.81) mg/dl Procalcitonin (0-0.5) ng/ml Crossmatch 03/21/21 03/21/21 03/21/21 Range/Units 12:43 12:43 13:47 WBC (4.8-10.8) K/uL RBC (4.7-6.1) M/uL Hgb (14.0-18.0) g/dL POC Hgb (14.0-18.0) g/dl Hct (42-52) % POC Hct (42-52) % Neut # (Auto) (1.4-6.5) K/uL Lymph # (Auto) (1.2-3.4) K/uL Immature Gran # (Auto) (0.00-0.02) K/uL POC pH (7.35-7.45) POC pCO2 (35-46) mmHg POC pO2 (80-95) mmHg POC HCO3 (19-24) stacy/L POC Total CO2 (24-31) mmol/L ABG pH (7.35-7.45) ABG pH (Temp Correct) (7.35-7.45) ABG pCO2 (35-46) mmHg ABG pCO2 (Temp Corrct (35-46) mmHg ABG pO2 (80-95) mmHg ABG HCO3 (19-24) mmol/L ABG O2 Saturation (90-95) % ABG Base Excess (-9-1.8) mEq/L VBG pH 7.11 L (7.36-7.41) VBG pCO2 24 L (38-50) mmHg Sodium (136-145) mmol/L POC Potassium (3.3-5.0) mmol/L Potassium (3.5-5.1) mmol/L Chloride (98-107) mmol/L Carbon Dioxide (21-32) mmol/L Anion Gap (3-11) BUN (7-18) mg/dl Creatinine (0.6-1.4) mg/dl Glucose 822 H* (70-99) mg/dl POC Glucose (70-99) mg/dl POC Glucose (other) (70-99) mg/dl Lactate 3.5 H* (0.4-2.0) mmol/L Calcium (8.5-10.1) mg/dl Ionized Calcium (1.12-1.32) mmol/L Phosphorus (2.5-4.9) mg/dl AST (15-37) U/L ALT (12-78) U/L Troponin I (0-0.045) ng/ml Total Protein (6.4-8.2) gm/dl Albumin (3.4-5.0) gm/dl Globulin (2.5-4.0) gm/dl Beta-Hydroxybutyric Acd 103.07 H (0.2-2.81) mg/dl Procalcitonin (0-0.5) ng/ml Crossmatch 03/21/21 03/21/21 03/21/21 Range/Units 14:36 14:40 14:40 WBC (4.8-10.8) K/uL RBC (4.7-6.1) M/uL Hgb (14.0-18.0) g/dL POC Hgb (14.0-18.0) g/dl Hct (42-52) % POC Hct (42-52) % Neut # (Auto) (1.4-6.5) K/uL Lymph # (Auto) (1.2-3.4) K/uL Immature Gran # (Auto) (0.00-0.02) K/uL POC pH (7.35-7.45) POC pCO2 (35-46) mmHg POC pO2 (80-95) mmHg POC HCO3 (19-24) stacy/L POC Total CO2 (24-31) mmol/L ABG pH (7.35-7.45) ABG pH (Temp Correct) (7.35-7.45) ABG pCO2 (35-46) mmHg ABG pCO2 (Temp Corrct (35-46) mmHg ABG pO2 (80-95) mmHg ABG HCO3 (19-24) mmol/L ABG O2 Saturation (90-95) % ABG Base Excess (-9-1.8) mEq/L VBG pH 7.28 L (7.36-7.41) VBG pCO2 23 L (38-50) mmHg Sodium (136-145) mmol/L POC Potassium (3.3-5.0) mmol/L Potassium (3.5-5.1) mmol/L Chloride (98-107) mmol/L Carbon Dioxide 11 L (21-32) mmol/L Anion Gap 25.0 H (3-11) BUN 58 H (7-18) mg/dl Creatinine 3.13 H (0.6-1.4) mg/dl Glucose 711 H* (70-99) mg/dl POC Glucose (70-99) mg/dl POC Glucose (other) (70-99) mg/dl Lactate 4.8 H* (0.4-2.0) mmol/L Calcium 6.9 L (8.5-10.1) mg/dl Ionized Calcium (1.12-1.32) mmol/L Phosphorus (2.5-4.9) mg/dl AST (15-37) U/L ALT (12-78) U/L Troponin I 11.700 H* (0-0.045) ng/ml Total Protein (6.4-8.2) gm/dl Albumin (3.4-5.0) gm/dl Globulin (2.5-4.0) gm/dl Beta-Hydroxybutyric Acd > 46.00 H (0.2-2.81) mg/dl Procalcitonin (0-0.5) ng/ml Crossmatch 03/21/21 03/21/21 03/21/21 Range/Units 15:50 16:45 16:45 WBC (4.8-10.8) K/uL RBC (4.7-6.1) M/uL Hgb (14.0-18.0) g/dL POC Hgb (14.0-18.0) g/dl Hct (42-52) % POC Hct (42-52) % Neut # (Auto) (1.4-6.5) K/uL Lymph # (Auto) (1.2-3.4) K/uL Immature Gran # (Auto) (0.00-0.02) K/uL POC pH (7.35-7.45) POC pCO2 (35-46) mmHg POC pO2 (80-95) mmHg POC HCO3 (19-24) stacy/L POC Total CO2 (24-31) mmol/L ABG pH (7.35-7.45) ABG pH (Temp Correct) (7.35-7.45) ABG pCO2 (35-46) mmHg ABG pCO2 (Temp Corrct (35-46) mmHg ABG pO2 (80-95) mmHg ABG HCO3 (19-24) mmol/L ABG O2 Saturation (90-95) % ABG Base Excess (-9-1.8) mEq/L VBG pH (7.36-7.41) VBG pCO2 (38-50) mmHg Sodium (136-145) mmol/L POC Potassium (3.3-5.0) mmol/L Potassium 3.3 L D (3.5-5.1) mmol/L Chloride (98-107) mmol/L Carbon Dioxide 15 L (21-32) mmol/L Anion Gap 20.0 H (3-11) BUN 57 H (7-18) mg/dl Creatinine 3.21 H (0.6-1.4) mg/dl Glucose 647 H* 598 H* (70-99) mg/dl POC Glucose (70-99) mg/dl POC Glucose (other) (70-99) mg/dl Lactate 5.9 H* (0.4-2.0) mmol/L Calcium 6.8 L (8.5-10.1) mg/dl Ionized Calcium (1.12-1.32) mmol/L Phosphorus (2.5-4.9) mg/dl AST (15-37) U/L ALT (12-78) U/L Troponin I 16.300 H* (0-0.045) ng/ml Total Protein (6.4-8.2) gm/dl Albumin (3.4-5.0) gm/dl Globulin (2.5-4.0) gm/dl Beta-Hydroxybutyric Acd 68.21 H 52.96 H (0.2-2.81) mg/dl Procalcitonin (0-0.5) ng/ml Crossmatch 03/21/21 03/21/21 03/21/21 Range/Units 16:45 16:45 16:52 WBC (4.8-10.8) K/uL RBC 3.52 L (4.7-6.1) M/uL Hgb 11.2 L (14.0-18.0) g/dL POC Hgb (14.0-18.0) g/dl Hct 32.8 L (42-52) % POC Hct (42-52) % Neut # (Auto) (1.4-6.5) K/uL Lymph # (Auto) (1.2-3.4) K/uL Immature Gran # (Auto) (0.00-0.02) K/uL POC pH (7.35-7.45) POC pCO2 (35-46) mmHg POC pO2 (80-95) mmHg POC HCO3 (19-24) stacy/L POC Total CO2 (24-31) mmol/L ABG pH 7.23 L (7.35-7.45) ABG pH (Temp Correct) (7.35-7.45) ABG pCO2 32 L (35-46) mmHg ABG pCO2 (Temp Corrct (35-46) mmHg ABG pO2 195 H (80-95) mmHg ABG HCO3 13 L (19-24) mmol/L ABG O2 Saturation 99.4 H (90-95) % ABG Base Excess -13.4 L (-9-1.8) mEq/L VBG pH (7.36-7.41) VBG pCO2 (38-50) mmHg Sodium (136-145) mmol/L POC Potassium (3.3-5.0) mmol/L Potassium (3.5-5.1) mmol/L Chloride (98-107) mmol/L Carbon Dioxide (21-32) mmol/L Anion Gap (3-11) BUN (7-18) mg/dl Creatinine (0.6-1.4) mg/dl Glucose (70-99) mg/dl POC Glucose (70-99) mg/dl POC Glucose (other) (70-99) mg/dl Lactate (0.4-2.0) mmol/L Calcium (8.5-10.1) mg/dl Ionized Calcium (1.12-1.32) mmol/L Phosphorus (2.5-4.9) mg/dl AST (15-37) U/L ALT (12-78) U/L Troponin I (0-0.045) ng/ml Total Protein (6.4-8.2) gm/dl Albumin (3.4-5.0) gm/dl Globulin (2.5-4.0) gm/dl Beta-Hydroxybutyric Acd (0.2-2.81) mg/dl Procalcitonin (0-0.5) ng/ml Crossmatch See Detail 08/24/21 08/24/21 08/24/21 Range/Units 17:45 17:50 19:05 WBC (4.8-10.8) K/uL RBC (4.7-6.1) M/uL Hgb (14.0-18.0) g/dL POC Hgb (14.0-18.0) g/dl Hct (42-52) % POC Hct (42-52) % Neut # (Auto) (1.4-6.5) K/uL Lymph # (Auto) (1.2-3.4) K/uL Immature Gran # (Auto) (0.00-0.02) K/uL POC pH (7.35-7.45) POC pCO2 (35-46) mmHg POC pO2 (80-95) mmHg POC HCO3 (19-24) stacy/L POC Total CO2 (24-31) mmol/L ABG pH (7.35-7.45) ABG pH (Temp Correct) (7.35-7.45) ABG pCO2 (35-46) mmHg ABG pCO2 (Temp Corrct (35-46) mmHg ABG pO2 (80-95) mmHg ABG HCO3 (19-24) mmol/L ABG O2 Saturation (90-95) % ABG Base Excess (-9-1.8) mEq/L VBG pH (7.36-7.41) VBG pCO2 (38-50) mmHg Sodium (136-145) mmol/L POC Potassium (3.3-5.0) mmol/L Potassium (3.5-5.1) mmol/L Chloride (98-107) mmol/L Carbon Dioxide (21-32) mmol/L Anion Gap (3-11) BUN (7-18) mg/dl Creatinine (0.6-1.4) mg/dl Glucose 558 H* (70-99) mg/dl POC Glucose 536 H* 596 H* (70-99) mg/dl POC Glucose (other) (70-99) mg/dl Lactate (0.4-2.0) mmol/L Calcium (8.5-10.1) mg/dl Ionized Calcium (1.12-1.32) mmol/L Phosphorus (2.5-4.9) mg/dl AST (15-37) U/L ALT (12-78) U/L Troponin I (0-0.045) ng/ml Total Protein (6.4-8.2) gm/dl Albumin (3.4-5.0) gm/dl Globulin (2.5-4.0) gm/dl Beta-Hydroxybutyric Acd 34.71 H (0.2-2.81) mg/dl Procalcitonin (0-0.5) ng/ml Crossmatch 03/21/21 03/21/21 03/21/21 Range/Units 19:09 19:09 19:09 WBC (4.8-10.8) K/uL RBC 3.40 L (4.7-6.1) M/uL Hgb 10.6 L (14.0-18.0) g/dL POC Hgb (14.0-18.0) g/dl Hct 30.5 L (42-52) % POC Hct (42-52) % Neut # (Auto) 6.52 H (1.4-6.5) K/uL Lymph # (Auto) 0.23 L (1.2-3.4) K/uL Immature Gran # (Auto) 0.08 H (0.00-0.02) K/uL POC pH (7.35-7.45) POC pCO2 (35-46) mmHg POC pO2 (80-95) mmHg POC HCO3 (19-24) stacy/L POC Total CO2 (24-31) mmol/L ABG pH (7.35-7.45) ABG pH (Temp Correct) (7.35-7.45) ABG pCO2 (35-46) mmHg ABG pCO2 (Temp Corrct (35-46) mmHg ABG pO2 (80-95) mmHg ABG HCO3 (19-24) mmol/L ABG O2 Saturation (90-95) % ABG Base Excess (-9-1.8) mEq/L VBG pH (7.36-7.41) VBG pCO2 (38-50) mmHg Sodium (136-145) mmol/L POC Potassium (3.3-5.0) mmol/L Potassium 3.3 L (3.5-5.1) mmol/L Chloride 108 H (98-107) mmol/L Carbon Dioxide 18 L (21-32) mmol/L Anion Gap 16.0 H (3-11) BUN 58 H (7-18) mg/dl Creatinine 3.23 H (0.6-1.4) mg/dl Glucose 480 H* (70-99) mg/dl POC Glucose (70-99) mg/dl POC Glucose (other) (70-99) mg/dl Lactate 5.7 H* (0.4-2.0) mmol/L Calcium 7.3 L (8.5-10.1) mg/dl Ionized Calcium (1.12-1.32) mmol/L Phosphorus 1.4 L* D (2.5-4.9) mg/dl AST (15-37) U/L ALT (12-78) U/L Troponin I (0-0.045) ng/ml Total Protein (6.4-8.2) gm/dl Albumin (3.4-5.0) gm/dl Globulin (2.5-4.0) gm/dl Beta-Hydroxybutyric Acd 19.49 H (0.2-2.81) mg/dl Procalcitonin (0-0.5) ng/ml Crossmatch 03/21/21 03/21/21 03/21/21 Range/Units 19:24 19:44 21:05 WBC (4.8-10.8) K/uL RBC (4.7-6.1) M/uL Hgb (14.0-18.0) g/dL POC Hgb 10.2 L (14.0-18.0) g/dl Hct (42-52) % POC Hct 30 L (42-52) % Neut # (Auto) (1.4-6.5) K/uL Lymph # (Auto) (1.2-3.4) K/uL Immature Gran # (Auto) (0.00-0.02) K/uL POC pH 7.33 L (7.35-7.45) POC pCO2 32 L (35-46) mmHg POC pO2 78 L (80-95) mmHg POC HCO3 17 L (19-24) stacy/L POC Total CO2 18 L (24-31) mmol/L ABG pH (7.35-7.45) ABG pH (Temp Correct) 7.346 L (7.35-7.45) ABG pCO2 (35-46) mmHg ABG pCO2 (Temp Corrct 30 L (35-46) mmHg ABG pO2 (80-95) mmHg ABG HCO3 (19-24) mmol/L ABG O2 Saturation (90-95) % ABG Base Excess (-9-1.8) mEq/L VBG pH (7.36-7.41) VBG pCO2 (38-50) mmHg Sodium (136-145) mmol/L POC Potassium 3.1 L (3.3-5.0) mmol/L Potassium 3.3 L (3.5-5.1) mmol/L Chloride 109 H (98-107) mmol/L Carbon Dioxide 18 L (21-32) mmol/L Anion Gap 16.0 H (3-11) BUN 56 H (7-18) mg/dl Creatinine 3.38 H (0.6-1.4) mg/dl Glucose 373 H* (70-99) mg/dl POC Glucose (70-99) mg/dl POC Glucose (other) (70-99) mg/dl Lactate (0.4-2.0) mmol/L Calcium 7.0 L (8.5-10.1) mg/dl Ionized Calcium 1.02 L (1.12-1.32) mmol/L Phosphorus 0.6 L* (2.5-4.9) mg/dl AST (15-37) U/L ALT (12-78) U/L Troponin I (0-0.045) ng/ml Total Protein (6.4-8.2) gm/dl Albumin (3.4-5.0) gm/dl Globulin (2.5-4.0) gm/dl Beta-Hydroxybutyric Acd 5.44 H (0.2-2.81) mg/dl Procalcitonin (0-0.5) ng/ml Crossmatch 03/21/21 03/21/21 03/21/21 Range/Units 21:05 21:05 21:05 WBC (4.8-10.8) K/uL RBC (4.7-6.1) M/uL Hgb 10.3 L (14.0-18.0) g/dL POC Hgb (14.0-18.0) g/dl Hct 29.0 L (42-52) % POC Hct (42-52) % Neut # (Auto) (1.4-6.5) K/uL Lymph # (Auto) (1.2-3.4) K/uL Immature Gran # (Auto) (0.00-0.02) K/uL POC pH (7.35-7.45) POC pCO2 (35-46) mmHg POC pO2 (80-95) mmHg POC HCO3 (19-24) stacy/L POC Total CO2 (24-31) mmol/L ABG pH (7.35-7.45) ABG pH (Temp Correct) (7.35-7.45) ABG pCO2 (35-46) mmHg ABG pCO2 (Temp Corrct (35-46) mmHg ABG pO2 (80-95) mmHg ABG HCO3 (19-24) mmol/L ABG O2 Saturation (90-95) % ABG Base Excess (-9-1.8) mEq/L VBG pH (7.36-7.41) VBG pCO2 (38-50) mmHg Sodium (136-145) mmol/L POC Potassium (3.3-5.0) mmol/L Potassium (3.5-5.1) mmol/L Chloride (98-107) mmol/L Carbon Dioxide (21-32) mmol/L Anion Gap (3-11) BUN (7-18) mg/dl Creatinine (0.6-1.4) mg/dl Glucose (70-99) mg/dl POC Glucose (70-99) mg/dl POC Glucose (other) (70-99) mg/dl Lactate 6.3 H* (0.4-2.0) mmol/L Calcium (8.5-10.1) mg/dl Ionized Calcium 0.97 L (1.12-1.32) mmol/L Phosphorus (2.5-4.9) mg/dl AST (15-37) U/L ALT (12-78) U/L Troponin I (0-0.045) ng/ml Total Protein (6.4-8.2) gm/dl Albumin (3.4-5.0) gm/dl Globulin (2.5-4.0) gm/dl Beta-Hydroxybutyric Acd (0.2-2.81) mg/dl Procalcitonin (0-0.5) ng/ml Crossmatch 03/21/21 03/21/21 03/21/21 Range/Units 21:10 21:54 22:29 WBC (4.8-10.8) K/uL RBC (4.7-6.1) M/uL Hgb (14.0-18.0) g/dL POC Hgb (14.0-18.0) g/dl Hct (42-52) % POC Hct (42-52) % Neut # (Auto) (1.4-6.5) K/uL Lymph # (Auto) (1.2-3.4) K/uL Immature Gran # (Auto) (0.00-0.02) K/uL POC pH (7.35-7.45) POC pCO2 (35-46) mmHg POC pO2 (80-95) mmHg POC HCO3 (19-24) stacy/L POC Total CO2 (24-31) mmol/L ABG pH (7.35-7.45) ABG pH (Temp Correct) (7.35-7.45) ABG pCO2 27 L 27 L (35-46) mmHg ABG pCO2 (Temp Corrct (35-46) mmHg ABG pO2 136 H 110 H (80-95) mmHg ABG HCO3 18 L 18 L (19-24) mmol/L ABG O2 Saturation 99.0 H 98.0 H (90-95) % ABG Base Excess (-9-1.8) mEq/L VBG pH (7.36-7.41) VBG pCO2 (38-50) mmHg Sodium (136-145) mmol/L POC Potassium (3.3-5.0) mmol/L Potassium (3.5-5.1) mmol/L Chloride (98-107) mmol/L Carbon Dioxide (21-32) mmol/L Anion Gap (3-11) BUN (7-18) mg/dl Creatinine (0.6-1.4) mg/dl Glucose (70-99) mg/dl POC Glucose (70-99) mg/dl POC Glucose (other) 347 H (70-99) mg/dl Lactate (0.4-2.0) mmol/L Calcium (8.5-10.1) mg/dl Ionized Calcium (1.12-1.32) mmol/L Phosphorus (2.5-4.9) mg/dl AST (15-37) U/L ALT (12-78) U/L Troponin I (0-0.045) ng/ml Total Protein (6.4-8.2) gm/dl Albumin (3.4-5.0) gm/dl Globulin (2.5-4.0) gm/dl Beta-Hydroxybutyric Acd (0.2-2.81) mg/dl Procalcitonin (0-0.5) ng/ml Crossmatch 03/21/21 03/21/21 03/21/21 Range/Units 22:30 22:30 23:02 WBC (4.8-10.8) K/uL RBC (4.7-6.1) M/uL Hgb (14.0-18.0) g/dL POC Hgb (14.0-18.0) g/dl Hct (42-52) % POC Hct (42-52) % Neut # (Auto) (1.4-6.5) K/uL Lymph # (Auto) (1.2-3.4) K/uL Immature Gran # (Auto) (0.00-0.02) K/uL POC pH (7.35-7.45) POC pCO2 (35-46) mmHg POC pO2 (80-95) mmHg POC HCO3 (19-24) stacy/L POC Total CO2 (24-31) mmol/L ABG pH (7.35-7.45) ABG pH (Temp Correct) (7.35-7.45) ABG pCO2 (35-46) mmHg ABG pCO2 (Temp Corrct (35-46) mmHg ABG pO2 (80-95) mmHg ABG HCO3 (19-24) mmol/L ABG O2 Saturation (90-95) % ABG Base Excess (-9-1.8) mEq/L VBG pH (7.36-7.41) VBG pCO2 (38-50) mmHg Sodium (136-145) mmol/L POC Potassium (3.3-5.0) mmol/L Potassium 3.1 L (3.5-5.1) mmol/L Chloride 108 H (98-107) mmol/L Carbon Dioxide 18 L (21-32) mmol/L Anion Gap 17.0 H (3-11) BUN 60 H (7-18) mg/dl Creatinine 3.42 H (0.6-1.4) mg/dl Glucose 323 H* (70-99) mg/dl POC Glucose (70-99) mg/dl POC Glucose (other) 292 H (70-99) mg/dl Lactate 6.9 H* (0.4-2.0) mmol/L Calcium 6.9 L (8.5-10.1) mg/dl Ionized Calcium (1.12-1.32) mmol/L Phosphorus (2.5-4.9) mg/dl AST (15-37) U/L ALT (12-78) U/L Troponin I 26.200 H* (0-0.045) ng/ml Total Protein (6.4-8.2) gm/dl Albumin (3.4-5.0) gm/dl Globulin (2.5-4.0) gm/dl Beta-Hydroxybutyric Acd (0.2-2.81) mg/dl Procalcitonin (0-0.5) ng/ml Crossmatch 03/22/21 03/22/21 03/22/21 Range/Units 00:26 01:18 01:39 WBC (4.8-10.8) K/uL RBC (4.7-6.1) M/uL Hgb 10.0 L (14.0-18.0) g/dL POC Hgb (14.0-18.0) g/dl Hct 28.4 L (42-52) % POC Hct (42-52) % Neut # (Auto) (1.4-6.5) K/uL Lymph # (Auto) (1.2-3.4) K/uL Immature Gran # (Auto) (0.00-0.02) K/uL POC pH (7.35-7.45) POC pCO2 (35-46) mmHg POC pO2 (80-95) mmHg POC HCO3 (19-24) stacy/L POC Total CO2 (24-31) mmol/L ABG pH (7.35-7.45) ABG pH (Temp Correct) (7.35-7.45) ABG pCO2 (35-46) mmHg ABG pCO2 (Temp Corrct (35-46) mmHg ABG pO2 (80-95) mmHg ABG HCO3 (19-24) mmol/L ABG O2 Saturation (90-95) % ABG Base Excess (-9-1.8) mEq/L VBG pH (7.36-7.41) VBG pCO2 (38-50) mmHg Sodium (136-145) mmol/L POC Potassium (3.3-5.0) mmol/L Potassium (3.5-5.1) mmol/L Chloride (98-107) mmol/L Carbon Dioxide (21-32) mmol/L Anion Gap (3-11) BUN (7-18) mg/dl Creatinine (0.6-1.4) mg/dl Glucose (70-99) mg/dl POC Glucose (70-99) mg/dl POC Glucose (other) 224 H 208 H (70-99) mg/dl Lactate (0.4-2.0) mmol/L Calcium (8.5-10.1) mg/dl Ionized Calcium (1.12-1.32) mmol/L Phosphorus (2.5-4.9) mg/dl AST (15-37) U/L ALT (12-78) U/L Troponin I (0-0.045) ng/ml Total Protein (6.4-8.2) gm/dl Albumin (3.4-5.0) gm/dl Globulin (2.5-4.0) gm/dl Beta-Hydroxybutyric Acd (0.2-2.81) mg/dl Procalcitonin (0-0.5) ng/ml Crossmatch 03/22/21 03/22/21 03/22/21 Range/Units 01:39 01:39 01:39 WBC (4.8-10.8) K/uL RBC (4.7-6.1) M/uL Hgb (14.0-18.0) g/dL POC Hgb (14.0-18.0) g/dl Hct (42-52) % POC Hct (42-52) % Neut # (Auto) (1.4-6.5) K/uL Lymph # (Auto) (1.2-3.4) K/uL Immature Gran # (Auto) (0.00-0.02) K/uL POC pH (7.35-7.45) POC pCO2 (35-46) mmHg POC pO2 (80-95) mmHg POC HCO3 (19-24) stacy/L POC Total CO2 (24-31) mmol/L ABG pH (7.35-7.45) ABG pH (Temp Correct) (7.35-7.45) ABG pCO2 29 L (35-46) mmHg ABG pCO2 (Temp Corrct (35-46) mmHg ABG pO2 106 H (80-95) mmHg ABG HCO3 18 L (19-24) mmol/L ABG O2 Saturation 98.0 H (90-95) % ABG Base Excess (-9-1.8) mEq/L VBG pH (7.36-7.41) VBG pCO2 (38-50) mmHg Sodium (136-145) mmol/L POC Potassium (3.3-5.0) mmol/L Potassium (3.5-5.1) mmol/L Chloride 112 H (98-107) mmol/L Carbon Dioxide 18 L (21-32) mmol/L Anion Gap 15.0 H (3-11) BUN 58 H (7-18) mg/dl Creatinine 3.46 H (0.6-1.4) mg/dl Glucose 197 H (70-99) mg/dl POC Glucose (70-99) mg/dl POC Glucose (other) (70-99) mg/dl Lactate (0.4-2.0) mmol/L Calcium 7.2 L (8.5-10.1) mg/dl Ionized Calcium 0.99 L (1.12-1.32) mmol/L Phosphorus 1.9 L D (2.5-4.9) mg/dl AST (15-37) U/L ALT (12-78) U/L Troponin I (0-0.045) ng/ml Total Protein (6.4-8.2) gm/dl Albumin (3.4-5.0) gm/dl Globulin (2.5-4.0) gm/dl Beta-Hydroxybutyric Acd (0.2-2.81) mg/dl Procalcitonin (0-0.5) ng/ml Crossmatch 03/22/21 03/22/21 03/22/21 Range/Units 02:16 03:14 04:09 WBC (4.8-10.8) K/uL RBC (4.7-6.1) M/uL Hgb (14.0-18.0) g/dL POC Hgb (14.0-18.0) g/dl Hct (42-52) % POC Hct (42-52) % Neut # (Auto) (1.4-6.5) K/uL Lymph # (Auto) (1.2-3.4) K/uL Immature Gran # (Auto) (0.00-0.02) K/uL POC pH (7.35-7.45) POC pCO2 (35-46) mmHg POC pO2 (80-95) mmHg POC HCO3 (19-24) stacy/L POC Total CO2 (24-31) mmol/L ABG pH (7.35-7.45) ABG pH (Temp Correct) (7.35-7.45) ABG pCO2 (35-46) mmHg ABG pCO2 (Temp Corrct (35-46) mmHg ABG pO2 (80-95) mmHg ABG HCO3 (19-24) mmol/L ABG O2 Saturation (90-95) % ABG Base Excess (-9-1.8) mEq/L VBG pH (7.36-7.41) VBG pCO2 (38-50) mmHg Sodium (136-145) mmol/L POC Potassium (3.3-5.0) mmol/L Potassium (3.5-5.1) mmol/L Chloride (98-107) mmol/L Carbon Dioxide (21-32) mmol/L Anion Gap (3-11) BUN (7-18) mg/dl Creatinine (0.6-1.4) mg/dl Glucose (70-99) mg/dl POC Glucose (70-99) mg/dl POC Glucose (other) 195 H 182 H 166 H (70-99) mg/dl Lactate (0.4-2.0) mmol/L Calcium (8.5-10.1) mg/dl Ionized Calcium (1.12-1.32) mmol/L Phosphorus (2.5-4.9) mg/dl AST (15-37) U/L ALT (12-78) U/L Troponin I (0-0.045) ng/ml Total Protein (6.4-8.2) gm/dl Albumin (3.4-5.0) gm/dl Globulin (2.5-4.0) gm/dl Beta-Hydroxybutyric Acd (0.2-2.81) mg/dl Procalcitonin (0-0.5) ng/ml Crossmatch 03/22/21 03/22/21 03/22/21 Range/Units 04:59 04:59 04:59 WBC 11.93 H (4.8-10.8) K/uL RBC 3.24 L (4.7-6.1) M/uL Hgb 10.3 L (14.0-18.0) g/dL POC Hgb (14.0-18.0) g/dl Hct 28.9 L (42-52) % POC Hct (42-52) % Neut # (Auto) 10.84 H (1.4-6.5) K/uL Lymph # (Auto) 0.43 L (1.2-3.4) K/uL Immature Gran # (Auto) 0.10 H (0.00-0.02) K/uL POC pH (7.35-7.45) POC pCO2 (35-46) mmHg POC pO2 (80-95) mmHg POC HCO3 (19-24) stacy/L POC Total CO2 (24-31) mmol/L ABG pH (7.35-7.45) ABG pH (Temp Correct) (7.35-7.45) ABG pCO2 (35-46) mmHg ABG pCO2 (Temp Corrct (35-46) mmHg ABG pO2 (80-95) mmHg ABG HCO3 (19-24) mmol/L ABG O2 Saturation (90-95) % ABG Base Excess (-9-1.8) mEq/L VBG pH (7.36-7.41) VBG pCO2 (38-50) mmHg Sodium (136-145) mmol/L POC Potassium (3.3-5.0) mmol/L Potassium (3.5-5.1) mmol/L Chloride 112 H (98-107) mmol/L Carbon Dioxide 18 L (21-32) mmol/L Anion Gap 14.0 H (3-11) BUN 57 H (7-18) mg/dl Creatinine 3.56 H (0.6-1.4) mg/dl Glucose 149 H (70-99) mg/dl POC Glucose (70-99) mg/dl POC Glucose (other) (70-99) mg/dl Lactate 4.7 H* (0.4-2.0) mmol/L Calcium 6.9 L (8.5-10.1) mg/dl Ionized Calcium (1.12-1.32) mmol/L Phosphorus (2.5-4.9) mg/dl AST 650 H (15-37) U/L ALT 129 H (12-78) U/L Troponin I 27.400 H* (0-0.045) ng/ml Total Protein 4.6 L D (6.4-8.2) gm/dl Albumin 2.3 L (3.4-5.0) gm/dl Globulin 2.3 L (2.5-4.0) gm/dl Beta-Hydroxybutyric Acd (0.2-2.81) mg/dl Procalcitonin (0-0.5) ng/ml Crossmatch 03/22/21 03/22/21 03/22/21 Range/Units 04:59 04:59 05:04 WBC (4.8-10.8) K/uL RBC (4.7-6.1) M/uL Hgb (14.0-18.0) g/dL POC Hgb (14.0-18.0) g/dl Hct (42-52) % POC Hct (42-52) % Neut # (Auto) (1.4-6.5) K/uL Lymph # (Auto) (1.2-3.4) K/uL Immature Gran # (Auto) (0.00-0.02) K/uL POC pH (7.35-7.45) POC pCO2 (35-46) mmHg POC pO2 (80-95) mmHg POC HCO3 (19-24) stacy/L POC Total CO2 (24-31) mmol/L ABG pH (7.35-7.45) ABG pH (Temp Correct) (7.35-7.45) ABG pCO2 29 L (35-46) mmHg ABG pCO2 (Temp Corrct (35-46) mmHg ABG pO2 98 H (80-95) mmHg ABG HCO3 17 L (19-24) mmol/L ABG O2 Saturation 97.6 H (90-95) % ABG Base Excess (-9-1.8) mEq/L VBG pH (7.36-7.41) VBG pCO2 (38-50) mmHg Sodium (136-145) mmol/L POC Potassium (3.3-5.0) mmol/L Potassium (3.5-5.1) mmol/L Chloride (98-107) mmol/L Carbon Dioxide (21-32) mmol/L Anion Gap (3-11) BUN (7-18) mg/dl Creatinine (0.6-1.4) mg/dl Glucose (70-99) mg/dl POC Glucose (70-99) mg/dl POC Glucose (other) 151 H (70-99) mg/dl Lactate (0.4-2.0) mmol/L Calcium (8.5-10.1) mg/dl Ionized Calcium (1.12-1.32) mmol/L Phosphorus (2.5-4.9) mg/dl AST (15-37) U/L ALT (12-78) U/L Troponin I (0-0.045) ng/ml Total Protein (6.4-8.2) gm/dl Albumin (3.4-5.0) gm/dl Globulin (2.5-4.0) gm/dl Beta-Hydroxybutyric Acd (0.2-2.81) mg/dl Procalcitonin 18.55 H (0-0.5) ng/ml Crossmatch 03/22/21 03/22/21 03/22/21 Range/Units 05:29 06:13 07:07 WBC (4.8-10.8) K/uL RBC (4.7-6.1) M/uL Hgb (14.0-18.0) g/dL POC Hgb (14.0-18.0) g/dl Hct (42-52) % POC Hct (42-52) % Neut # (Auto) (1.4-6.5) K/uL Lymph # (Auto) (1.2-3.4) K/uL Immature Gran # (Auto) (0.00-0.02) K/uL POC pH (7.35-7.45) POC pCO2 (35-46) mmHg POC pO2 (80-95) mmHg POC HCO3 (19-24) stacy/L POC Total CO2 (24-31) mmol/L ABG pH (7.35-7.45) ABG pH (Temp Correct) (7.35-7.45) ABG pCO2 (35-46) mmHg ABG pCO2 (Temp Corrct (35-46) mmHg ABG pO2 (80-95) mmHg ABG HCO3 (19-24) mmol/L ABG O2 Saturation (90-95) % ABG Base Excess (-9-1.8) mEq/L VBG pH (7.36-7.41) VBG pCO2 (38-50) mmHg Sodium (136-145) mmol/L POC Potassium (3.3-5.0) mmol/L Potassium (3.5-5.1) mmol/L Chloride (98-107) mmol/L Carbon Dioxide (21-32) mmol/L Anion Gap (3-11) BUN (7-18) mg/dl Creatinine (0.6-1.4) mg/dl Glucose (70-99) mg/dl POC Glucose (70-99) mg/dl POC Glucose (other) 140 H 122 H 101 H (70-99) mg/dl Lactate (0.4-2.0) mmol/L Calcium (8.5-10.1) mg/dl Ionized Calcium (1.12-1.32) mmol/L Phosphorus (2.5-4.9) mg/dl AST (15-37) U/L ALT (12-78) U/L Troponin I (0-0.045) ng/ml Total Protein (6.4-8.2) gm/dl Albumin (3.4-5.0) gm/dl Globulin (2.5-4.0) gm/dl Beta-Hydroxybutyric Acd (0.2-2.81) mg/dl Procalcitonin (0-0.5) ng/ml Crossmatch 03/22/21 03/22/21 03/22/21 Range/Units 07:31 08:07 08:36 WBC (4.8-10.8) K/uL RBC (4.7-6.1) M/uL Hgb (14.0-18.0) g/dL POC Hgb (14.0-18.0) g/dl Hct (42-52) % POC Hct (42-52) % Neut # (Auto) (1.4-6.5) K/uL Lymph # (Auto) (1.2-3.4) K/uL Immature Gran # (Auto) (0.00-0.02) K/uL POC pH (7.35-7.45) POC pCO2 (35-46) mmHg POC pO2 (80-95) mmHg POC HCO3 (19-24) stacy/L POC Total CO2 (24-31) mmol/L ABG pH (7.35-7.45) ABG pH (Temp Correct) (7.35-7.45) ABG pCO2 (35-46) mmHg ABG pCO2 (Temp Corrct (35-46) mmHg ABG pO2 (80-95) mmHg ABG HCO3 (19-24) mmol/L ABG O2 Saturation (90-95) % ABG Base Excess (-9-1.8) mEq/L VBG pH (7.36-7.41) VBG pCO2 (38-50) mmHg Sodium (136-145) mmol/L POC Potassium (3.3-5.0) mmol/L Potassium (3.5-5.1) mmol/L Chloride (98-107) mmol/L Carbon Dioxide (21-32) mmol/L Anion Gap (3-11) BUN (7-18) mg/dl Creatinine (0.6-1.4) mg/dl Glucose (70-99) mg/dl POC Glucose 109 H 101 H (70-99) mg/dl POC Glucose (other) 133 H (70-99) mg/dl Lactate (0.4-2.0) mmol/L Calcium (8.5-10.1) mg/dl Ionized Calcium (1.12-1.32) mmol/L Phosphorus (2.5-4.9) mg/dl AST (15-37) U/L ALT (12-78) U/L Troponin I (0-0.045) ng/ml Total Protein (6.4-8.2) gm/dl Albumin (3.4-5.0) gm/dl Globulin (2.5-4.0) gm/dl Beta-Hydroxybutyric Acd (0.2-2.81) mg/dl Procalcitonin (0-0.5) ng/ml Crossmatch 03/22/21 03/22/21 03/22/21 Range/Units 09:07 09:07 10:12 WBC (4.8-10.8) K/uL RBC (4.7-6.1) M/uL Hgb (14.0-18.0) g/dL POC Hgb (14.0-18.0) g/dl Hct (42-52) % POC Hct (42-52) % Neut # (Auto) (1.4-6.5) K/uL Lymph # (Auto) (1.2-3.4) K/uL Immature Gran # (Auto) (0.00-0.02) K/uL POC pH (7.35-7.45) POC pCO2 (35-46) mmHg POC pO2 (80-95) mmHg POC HCO3 (19-24) stacy/L POC Total CO2 (24-31) mmol/L ABG pH (7.35-7.45) ABG pH (Temp Correct) (7.35-7.45) ABG pCO2 (35-46) mmHg ABG pCO2 (Temp Corrct (35-46) mmHg ABG pO2 (80-95) mmHg ABG HCO3 (19-24) mmol/L ABG O2 Saturation (90-95) % ABG Base Excess (-9-1.8) mEq/L VBG pH (7.36-7.41) VBG pCO2 (38-50) mmHg Sodium (136-145) mmol/L POC Potassium (3.3-5.0) mmol/L Potassium (3.5-5.1) mmol/L Chloride 111 H (98-107) mmol/L Carbon Dioxide 20 L (21-32) mmol/L Anion Gap 12.0 H (3-11) BUN 59 H (7-18) mg/dl Creatinine 3.61 H (0.6-1.4) mg/dl Glucose (70-99) mg/dl POC Glucose 109 H (70-99) mg/dl POC Glucose (other) (70-99) mg/dl Lactate (0.4-2.0) mmol/L Calcium 6.9 L (8.5-10.1) mg/dl Ionized Calcium 0.93 L (1.12-1.32) mmol/L Phosphorus (2.5-4.9) mg/dl AST (15-37) U/L ALT (12-78) U/L Troponin I (0-0.045) ng/ml Total Protein (6.4-8.2) gm/dl Albumin (3.4-5.0) gm/dl Globulin (2.5-4.0) gm/dl Beta-Hydroxybutyric Acd (0.2-2.81) mg/dl Procalcitonin (0-0.5) ng/ml Crossmatch 03/22/21 Range/Units 11:14 WBC (4.8-10.8) K/uL RBC (4.7-6.1) M/uL Hgb (14.0-18.0) g/dL POC Hgb (14.0-18.0) g/dl Hct (42-52) % POC Hct (42-52) % Neut # (Auto) (1.4-6.5) K/uL Lymph # (Auto) (1.2-3.4) K/uL Immature Gran # (Auto) (0.00-0.02) K/uL POC pH (7.35-7.45) POC pCO2 (35-46) mmHg POC pO2 (80-95) mmHg POC HCO3 (19-24) stacy/L POC Total CO2 (24-31) mmol/L ABG pH (7.35-7.45) ABG pH (Temp Correct) (7.35-7.45) ABG pCO2 (35-46) mmHg ABG pCO2 (Temp Corrct (35-46) mmHg ABG pO2 (80-95) mmHg ABG HCO3 (19-24) mmol/L ABG O2 Saturation (90-95) % ABG Base Excess (-9-1.8) mEq/L VBG pH (7.36-7.41) VBG pCO2 (38-50) mmHg Sodium (136-145) mmol/L POC Potassium (3.3-5.0) mmol/L Potassium (3.5-5.1) mmol/L Chloride (98-107) mmol/L Carbon Dioxide (21-32) mmol/L Anion Gap (3-11) BUN (7-18) mg/dl Creatinine (0.6-1.4) mg/dl Glucose (70-99) mg/dl POC Glucose 127 H (70-99) mg/dl POC Glucose (other) (70-99) mg/dl Lactate (0.4-2.0) mmol/L Calcium (8.5-10.1) mg/dl Ionized Calcium (1.12-1.32) mmol/L Phosphorus (2.5-4.9) mg/dl AST (15-37) U/L ALT (12-78) U/L Troponin I (0-0.045) ng/ml Total Protein (6.4-8.2) gm/dl Albumin (3.4-5.0) gm/dl Globulin (2.5-4.0) gm/dl Beta-Hydroxybutyric Acd (0.2-2.81) mg/dl Procalcitonin (0-0.5) ng/ml Crossmatch
--- NOTE | 2021-03-22 12:44 | Consultation ---
Date of Consultation March 22, 2021 Assessment & Plan (1) Ischemia of both lower extremities: Pt with ischemic-appearing BL feet. Dopplers present to above ankle. feet mottled and pale, unable to assess motor fxn as pt cannot follow commands. Unable to determine whether pt having pain in feet. Pt still on pressors. Discussed with Dr Nash, recommends await arterial US results and will then make further recommendations. History of Present Illness Reason for Consultation: limb ischemia Attending Physician: Layla Glover MD History of Present Illness 65 yo m with hx of IDDM on insulin pump, NSTEMI, HTN, COPD, neuropathy, admitted acutely with DKA and bowel ischemia, now POD #1 after small bowel resection by Dr Orantes, seen in consultation today for BL foot ischemia noted on exam. Pt obtunded and unable to provide any hx or perform HPI. Pt currently on pressors and BLE mottling/pallor noted within past 2 hrs. No imaging performed yet. Allergies Allergy/AdvReac Type Severity Reaction Status Date / Time nortriptyline Allergy Mild ITCHING Verified 03/22/21 11:01 hydromorphone [From Dilaudid] AdvReac Mild Nausea/Vomi Verified 03/22/21 11:01 ting Home Medications Medication Instructions Recorded Confirmed Type blood sugar diagnostic (Contour #10 ea 05/20/19 11/18/20 History Next Test Strips) blood-glucose sensor (Dexcom G6 #3 ea 07/31/19 02/17/21 History Sensor) cyanocobalamin (vitamin B-12) 1,000 mcg PO QAM 02/03/20 03/21/21 History 1,000 mcg capsule metoprolol succinate 25 mg 25 mg PO QAM 11/18/20 03/21/21 History tablet,extended release 24 hr (Toprol XL) insulin lispro 100 unit/mL See Rx Instructions SQ .COMPLEX 02/23/21 03/21/21 Rx subcutaneous solution (Humalog #50 ml U-100 Insulin) amlodipine 5 mg tablet (Norvasc) 5 mg PO QAM 03/21/21 03/21/21 History cholecalciferol (vitamin D3) 50 2,000 units PO QAM 03/21/21 03/21/21 History mcg (2,000 unit) capsule (Vitamin D3) lisinopril 40 mg tablet (Zestril) 40 mg PO QAM 03/21/21 03/21/21 History spironolactone 25 mg tablet 25 mg PO BID 03/21/21 03/21/21 History (Aldactone) Patient History Medical History (Updated 03/22/21 @ 12:51 by Alicia Calix PA-C) COPD (chronic obstructive pulmonary disease) Diabetes mellitus with diabetic polyneuropathy Diabetes type 1, controlled Diabetic peripheral neuropathy associated with type 1 diabetes mellitus History of pulmonary embolism Hx of recurrent vertebral fractures Hypertension Ischemia of both lower extremities Vitamin D deficiency Surgical History Gastric bypass status for obesity History of back surgery History of carpal tunnel release of both wrists Hx of knee surgery Hx of shoulder surgery S/P cholecystectomy Ulnar nerve entrapment corrected Family History Mother Alzheimer disease Hypertension Brother Diabetes A-fib Father Bone cancer Social History Smoking Status: Never smoker Hx Alcohol Use: Yes Alcohol Intake Frequency Comment: Occasional Preferred Language: [place]ambian Communication Ability: Unable Beliefs That Will Affect Care: None marital status: Current Living Situation: Spouse current occupational status: retired Assistive Devices: Oxygen - Continuous Review of Systems Review of Systems: Unobtainable due to cognitive status Physical Exam Constitutional: obtunded, cannot follow commands. Respiratory: normal respiratory effort Auscultation: + diminished lung sounds Cardiovascular: Rate/Rhythm: regular rate and regular rhythm Vessels: femoral pulses present and popliteal pulses present; + abnormal peripheral pulses, + posterior tibial pulses abnormal and + dorsalis pedis pulses abnormal Extremities: + abnormal capillary refill (no cap refill BLE) Gastrointestinal (Abdomen): Inspection/Auscultation: + abdominal surgical incision (dressing intact) Skin: + mottling (BLE with pallor, cold distal to just above ankles) Neurologic: moves all extremities (but unable to follow command to move toes) and + obtunded Psychiatric: pt agitated Results & Data ([facility]) Vital Signs (Past 12 Hours) Vital Signs Temp Pulse Resp BP Pulse Ox Pulse Ox 03/22/21 11:44 93 H 25 H 162/65 H 86 L 03/22/21 11:29 92 H 25 H 161/74 H 90 03/22/21 11:14 87 24 167/71 H 88 L 03/22/21 10:59 93 H 144/106 H 92 03/22/21 10:44 91 H 169/68 H 90 03/22/21 10:29 91 H 160/63 H 92 03/22/21 10:14 82 147/79 H 97 03/22/21 09:59 77 133/63 94 03/22/21 09:44 79 129/60 95 03/22/21 09:29 77 124/60 96 03/22/21 09:14 88 139/63 96 03/22/21 08:59 74 141/70 H 95 03/22/21 08:44 74 139/74 95 03/22/21 08:29 74 136/73 97 03/22/21 08:14 74 128/67 96 03/22/21 08:00 14 03/22/21 07:59 76 131/67 97 03/22/21 07:44 77 119/60 95 03/22/21 07:40 80 21 95 03/22/21 07:39 98 03/22/21 07:37 85 21 94 03/22/21 07:29 90 190/105 H 91 03/22/21 07:00 37.1 C 76 134/69 94 03/22/21 06:45 91 H 171/76 H 92 03/22/21 06:29 75 135/71 95 03/22/21 06:14 76 150/72 H 94 03/22/21 05:59 72 148/73 H 96 03/22/21 05:44 73 150/75 H 96 03/22/21 05:29 73 146/75 H 97 03/22/21 05:14 71 145/69 H 96 03/22/21 05:02 77 26 H 97 03/22/21 04:59 76 170/85 H 98 03/22/21 04:44 71 150/76 H 95 03/22/21 04:29 71 149/77 H 95 03/22/21 04:14 72 142/78 H 98 03/22/21 04:00 37.2 C 28 H 98 03/22/21 03:59 83 165/82 H 98 03/22/21 03:44 73 147/74 H 98 08/25/21 03:29 74 143/71 H 98 03/22/21 03:14 72 133/68 98 03/22/21 02:59 77 159/80 H 98 03/22/21 02:44 71 139/73 98 03/22/21 02:29 73 131/68 98 03/22/21 02:14 71 137/67 98 03/22/21 01:59 73 130/69 98 03/22/21 01:44 73 149/70 H 98 03/22/21 01:29 71 136/70 98 03/22/21 00:59 73 145/72 H 98 03/22/21 00:54 73 28 H 98 03/22/21 00:44 76 119/60 98
[2021-03-22 13:08] LABS: BUN Creatinine Ratio 15.5 (10-20); Calcium 7.3 mg/dl (8.5-10.1); Creatinine Clr Calc Pharmacy 24.8 ml/min; Est GFR (African American) 18.9 ml/min; Est GFR (Non-African American) 16.3 ml/min
[2021-03-22 13:09] LABS: Phosphorus 3.4 mg/dl (2.5-4.9)
--- NOTE | 2021-03-22 13:36 | Ultrasound Report ---
US arterial duplex LE BI CLINICAL HISTORY: no posterior tibial or dorsalis pedis pulses bilaterally, on pressors COMPARISON STUDY: None. FINDINGS: The ankle brachial indices were not performed due to the portable study. Normal velocities and biphasic to triphasic waveforms seen within the bilateral common femoral, superficial femoral, an d bilateral optic arteries. The bilateral dorsalis pedis arteries and left peroneal artery appear occ luded. Low velocity monophasic waveforms seen within the left posterior tibial artery and right peron eal arteries. The remaining calf vessels appear patent. There is diffuse calcified plaque seen throug hout the bilateral lower extremity arterial systems. IMPRESSION: 1. The bilateral dorsalis pedis and left peroneal arteries appear occluded. 2. Diffuse calcified plaque seen throughout the bilateral extremity arterial systems. 3. Low velocity monophasic waveforms seen within the left posterior tibial and right peroneal arterie s consistent with diffuse atherosclerotic disease. ACT 112: Negative or not required by law. Electronically signed by: Tapan De Leon M.D. 03/22/2021 1:35 PM
[2021-03-22] MEDS ORDERED: NORMOSOL-R 500 ML IV ONE (14:34)
--- NOTE | 2021-03-22 14:37 | Communication Note ---
Date of Service: March 22, 2021 Discussed vascular ultrasounds findings with vascular surgery service. We will continue to follow Patient has become anuric, at this time metabolically compensating. -Bolus with 500 mL Normosol in addition to maintenance fluids currently running And concern for worsening multisystem organ failure and particularly anuric renal failure I have updated the patient's . She is comfortable proceeding with dialysis should that be needed we discussed long-term goals and wishes in event of cardiac arrest and she confirmed he would want to be DNR/DNI in event of cardiac arrest. I have updated his CODE STATUS Coding Level of Care Code None Time Spent (min) 45
--- NOTE | 2021-03-22 15:59 | Hospitalist Progress Note ---
Date of Service March 22, 2021 Assessment & Plan (1) Acute metabolic encephalopathy: Plan: Secondary to severe sepsis in the setting of small bowel ischemia and DKA Has been on intravenous Zosyn Remains unstable in the ICU Overall prognosis remains poor Non-ST PR Admission troponin was elevated and it was increasing Appreciate cardiology input and recommendation Echo was seen Heart rate and rhythm remained stable (2) Severe sepsis: Plan: Secondary to small bowel ischemia Received adequate intravenous fluid Status post resection of a small bowel Appreciate surgery input Appreciate optometric coordinator input and recommendation Required intravenous pressor resents to maintain blood pressure (3) DKA, type 1: Plan: Presented with blood sugar of more than 1000 and DKA Received intravenous insulin administration Appreciate glycemic pharmacist input and recommendation Severe electrolyte imbalance Supplemented We will monitor (4) RONDA (acute kidney injury): Plan: Acute kidney injury secondary to dehydration and sepsis Receiving intravenous fluid Kidney function has not been improving (5) Hyperkalemia: Plan: Secondary to acute kidney injury (6) Small bowel ischemia: Plan: As above (7) Lactic acid acidosis: (8) Hypermagnesemia: (9) Hyperphosphatemia: (10) Anemia: (11) Gastric bypass status for obesity: Plan: This is a 65-year-old male who has significant past medical history of type 1 diabetes mellitus, history of PE, HTN, HLD, History of Rios-en-Y, history of venous thrombosis, diabetic polyneuropathy, anxiety who presents to ED for altered mental status x1 day. Patient's care was coordinated with the ED provider, optometric coordinator Dr. Guillaume, Refrigeration Insulator Dr. Del Real and Surgeon Dr. Orantes. Patient with severe volume depletion in setting of severe DKA and a type I insulin pump dependent diabetic. Per CMS guidelines he meets for severe sepsis in setting of leukocytosis, lactic acidosis, RONDA, elevated procalcitonin and CT Abd pelvis findings concerning for small bowel ischemia. Patient admitted to ICU under care of optometric coordinator Dr. Guillaume Continue resuscitation with IV fluid, insulin drip Continue broad-spectrum antibiotics with IV Zosyn, blood and urine cultures pending Seen and evaluated by general surgery -plan for exploratory surgery given concern for small bowel ischemia once resuscitated further serial labs bmp, vbg, lactic acid Stating levophed gtt for pressor support continue monitoring resp status - tachypnea in setting of compensation for severe metabolic derangements RONDA in setting of volume depletion and severe dka along with electrolyte abn - K improving from 7 to 5.8, pH 6.85 to 7. Central L IJ placed echo pending, cycle trops VTE ppx: hold 08/30 to anticipated surgery Dispo: ICU- further management per optometric coordinator consultation FULL CODE PCP: Dov Padron Pt was seen and examined in collaboration with Dr. Glover, please see addendum Admission and Anticipated Discharge Date Admission Date: March 21, 2021 Subjective 03/22/2021 The patient was seen and examined in ICU He is status post small bowel resection and end-to-end anastomosis He has not been doing well since surgery He has been requiring pressor resents to maintain blood pressure Not been making enough urine Review of Systems Review of Systems: Unobtainable due to cognitive status Physical Exam Physical Exam: Lying in bed with distress secondary to abdominal discomfort, pain and shortness of breath Constitutional: well developed, well nourished, + ill appearing and + obese Eyes: PERRL, conjunctivae normal, anicteric sclerae ENMT: external ear and nose normal, oropharynx normal Neck: trachea midline, no thyromegaly Respiratory: + respiratory distress, + labored breathing and + uses accessory muscles Cardiovascular: Rate/Rhythm: regular rate, regular rhythm and + tachycardic Heart Sounds: normal S1 and normal S2; no murmur Gastrointestinal (Abdomen): Inspection/Auscultation: + abdomen distended Percussion/Palpation: + abdomen tender and abdomen soft Neurologic: + confused Results & Data Results & Data ([facility]) Vital Signs (Past 12 Hours) Vital Signs Temp Pulse Resp BP Pulse Ox Pulse Ox 03/22/21 15:36 37.1 C 03/22/21 13:59 100 H 31 H 143/73 H 95 03/22/21 13:44 95 H 28 H 142/77 H 95 03/22/21 13:29 90 22 120/67 97 03/22/21 13:14 100 H 35 H 113/71 93 03/22/21 12:59 94 H 32 H 125/67 96 03/22/21 12:44 94 H 30 H 132/69 95 03/22/21 12:29 91 H 28 H 143/64 H 97 03/22/21 12:14 92 H 28 H 136/80 96 03/22/21 12:00 36.7 C 97 03/22/21 11:59 93 H 23 141/91 H 94 03/22/21 11:44 93 H 25 H 162/65 H 86 L 03/22/21 11:29 92 H 25 H 161/74 H 90 03/22/21 11:14 87 24 167/71 H 88 L 03/22/21 10:59 93 H 144/106 H 92 03/22/21 10:44 91 H 169/68 H 90 03/22/21 10:29 91 H 160/63 H 92 03/22/21 10:14 82 147/79 H 97 03/22/21 09:59 77 133/63 94 03/22/21 09:44 79 129/60 95 03/22/21 09:29 77 124/60 96 03/22/21 09:14 88 139/63 96 03/22/21 08:59 74 141/70 H 95 03/22/21 08:44 74 139/74 95 03/22/21 08:29 74 136/73 97 03/22/21 08:14 74 128/67 96 03/22/21 08:00 14 03/22/21 07:59 76 131/67 97 03/22/21 07:44 77 119/60 95 03/22/21 07:40 80 21 95 03/22/21 07:39 98 03/22/21 07:37 85 21 94 03/22/21 07:29 90 190/105 H 91 03/22/21 07:00 37.1 C 76 134/69 94 03/22/21 06:45 91 H 171/76 H 92 03/22/21 06:29 75 135/71 95 03/22/21 06:14 76 150/72 H 94 03/22/21 05:59 72 148/73 H 96 03/22/21 05:44 73 150/75 H 96 03/22/21 05:29 73 146/75 H 97 03/22/21 05:14 71 145/69 H 96 03/22/21 05:02 77 26 H 97 03/22/21 04:59 76 170/85 H 98 03/22/21 04:44 71 150/76 H 95 03/22/21 04:29 71 149/77 H 95 03/22/21 04:14 72 142/78 H 98 03/22/21 04:00 37.2 C 28 H 98 03/22/21 03:59 83 165/82 H 98
[2021-03-22 18:30] LABS: Base Excess VBG -5.6 mEq/L; Oxygen Saturation VBG 69.7 %; pH VBG 7.4 (7.36-7.41)
[2021-03-22 18:43] LABS: BUN Creatinine Ratio 15.7 (10-20); Creatinine Clr Calc Pharmacy 22.6 ml/min; Est GFR (Non-African American) 14.6 ml/min; Potassium 4.8 mmol/L (3.5-5.1)
[2021-03-22] MEDS ORDERED: HYDROmorphone INJ 0.5 MG/0.5 ML SYR IV PRN (20:05)
[2021-03-22] MEDS: HEPARIN SOD 5,000 UNIT/0.5 ML VIAL SQ SCH (20:32)
[2021-03-23] MEDS ORDERED: HYDROmorphone INJ 1 MG/ML SYRINGE IV STA (01:56)
--- NOTE | 2021-03-23 02:31 | Communication Note ---
Date of Service: March 23, 2021 Patient seen and examined. Experiencing increased pain particularly with NG tube and complaining of sinus pain. No evidence of epistaxis. Minimal output from nasogastric tube. Patient now off pressors No longer on midazolam or fentanyl Dilaudid 0.5 mg IV every 6 hours ordered for pain as needed. Frequency changed to every 4 hours Dilaudid 1 mg IV given for pain EMR cleaned up At 02:15 a.m. patient pulled NG tube. At this time we will leave the NG tube out and continue to monitor for abdominal distention. Coding Level of Care Code Critical Care 1st 30-74 mins Time Spent (min) 32
[2021-03-23] MEDS: D5W AND 1/2NSS + 20MEQ KCL 20 MEQ/1,000 ML BAG IV SCH ×2 (03:04→11:38)
[2021-03-23] MEDS: HYDROmorphone INJ 0.5 MG/0.5 ML SYR IV PRN ×2 (03:17→08:04)
[2021-03-23 05:25] LABS: Albumin Level 2.2 gm/dl (3.4-5.0); BUN Creatinine Ratio 14.6 (10-20); Calcium 7.1 mg/dl (8.5-10.1); Creatinine Clr Calc Pharmacy 20.5 ml/min; Magnesium 1.9 mg/dl (1.8-2.4)
[2021-03-23 05:36] LABS: Bilirubin,Total 0.7 mg/dl (0.2-1); Globulin 2.3 gm/dl (2.5-4.0); Phosphorus 2.7 mg/dl (2.5-4.9); Total Protein 4.5 gm/dl (6.4-8.2)
[2021-03-23 05:47] LABS: Hematocrit (blood only) 27.1 % (42-52); Hemoglobin 9.5 g/dL (14.0-18.0); Immature Granulocytes # (auto) 0.18 K/uL (0.00-0.02); Immature Granulocytes % (auto) 1.4 %; Lymphocytes # (auto) 0.64 K/uL (1.2-3.4); Lymphocytes % (auto) 5.1 %; Mean Corpuscular Hemoglobin 31.1 pg (25-34); Mean Corpuscular Hgb Conc 35.1 g/dL (32-36); Mean Corpuscular Volume 88.9 fL (80-100); Mean Platelet Volume 10.6 fL (7.4-10.4); Monocytes # (auto) 0.83 K/uL (0.11-0.59); Monocytes % (auto) 6.6 %; Neutrophils # (auto) 10.94 K/uL (1.4-6.5); Neutrophils % (auto) 86.9 %; Platelet Count 59 K/uL (130-400); Platelet Estimate Decreased (Normal); RDW Coefficient of Variation 13.6 % (11.5-14.5); RDW Standard Deviation 44.1 fL (36.4-46.3); Red Blood Count 3.05 M/uL (4.7-6.1); White Blood Count 12.59 K/uL (4.8-10.8)
[2021-03-23 06:09] LABS: Fibrinogen 287 mg/dl (184-400); INR 1.1 (0.9-1.1); Partial Thromboplastin Ratio 1.6; Partial Thromboplastin Time 41.6 Seconds (21.0-31.0); Prothrombin Time 11.4 Seconds (9.0-12.0)
[2021-03-23] MEDS: PIPERACILLIN/TAZOBACTAM 4.5 GM in DEXTROSE 5% 100 ML IV SCH (06:10)
[2021-03-23] MEDS: ACETAMINOPHEN 1,000 MG/100 ML VIAL IV PRN (06:10)
[2021-03-23] MEDS: INSULIN ASPART 100 UNITS/ML 3 ML PEN SC SCH ×2 (07:57→13:25)
[2021-03-23] MEDS: CYANOCOBALAMIN 500 MCG TABLET (VITAMIN B-12) PO SCH (08:01)
[2021-03-23] MEDS: CHOLECALCIFEROL 1,000 UNITS 25 MCG TAB PO SCH (08:01)
--- NOTE | 2021-03-23 08:02 | Critical Care Progress Note ---
Date of Service March 23, 2021 Assessment & Plan (1) Acute metabolic encephalopathy: Plan: Kirit Pittman is a 65 yo male with PMHx significant for T1DM (A1c 7.5 on 03/21/21, management with insulin pump), HTN, and h/o gastric bypass surgery who was admitted to [facility] ICU on 03/21 for severe DKA and small bowel necrosis, for close hemodynamic monitoring and aggressive fluid resuscitation with electrolyte correction. S/p laparotomy with 150cm small bowel resection and anastomosis on 03/21. Extubated and weaned off of pressors on 03/22. Remains in ICU in critical condition. Neuro: Metabolic encephalopathy in context of DKA and small bowel necrosis. Patient has been extubated and off of sedatives since yesterday, and is now able to follow commands albeit still significantly altered. - close monitoring while in ICU Cardiac: 1. NSTEMI. EKG with inferolateral ST depressions and Troponin elevated to 27.6 and ~peaked on 03/22. ST depressions are largely resolved as of 03/21. Suspect ischemia in context of profound dehydration/acidosis due to DKA and bowel necr osis. - Cardiology consulted - appreciate recs - TTE with EF 65-70%, LV size/systolic function appropriate, right ventricle moderately dilated with moderate reduction in RV systolic function - hold home Amlodipine, Lisinopril, Toprol XL, Spironolactone 2. Severe PAD with occlusion of bilateral dorsalis pedis and left peroneal arteries in context of high vasopressor requirements. - Vascular surgery consulted - appreciate recs 3. Hypotension in context of DKA and lactic acidosis 2/2 bowel necrosis. Pressors weaned off on 03/22; currently remains normotensive. - continue to hold home BP meds Respiratory: Intubated on 03/21 due to respiratory failure in context of DKA and profound lactic acidosis due to small bowel necrosis. Extubated on 03/22, off of sedatives, and weaned to room air this morning. - close monitoring of respiratory status while in ICU GI: 1. CT A/P on admission with evidence of bowel ischemia. S/p resection of 150cm necrotic small bowel with anastomosis on 03/21. Procalcitonin increased from 11 --> 18.5 today and Lactate peaked at 6.9 overnight; both likely due to bowel necrosis. - surgery following - appreciate recs - continue broad-spectrum antibiotic coverage with Zosyn - continue NG tube and right abdomen drain 2. Transaminitis. ALT 129 --> 363 and AST 650 --> 1580 today. Suspect shock liver in context of above. - continue mIVFs as specified below - trend LFTs daily RENAL/LYTES: Acute renal failure with minimal urine output, likely due to ATN in setting of profound dehydration and acidosis 2/2 DKA and necrotic small bowel. Hypoalbuminemia and post-op fluid shifts are also contributing to persistent dysfunction. - continue mIVFs with D5 1/2NSS + 20mEq KCl @150cc/hr - Nephrology consulted for consideration for dialysis - replete electrolytes as necessary : Minimal urine output likely due to ATN. - Nephrology consulted as stated above - continue urinary Holcomb catheter - strict I/Os ENDO: DKA. Initial pH 6.85, HCO3 of 5, AG of 32, BHB 144.57. Likely due to malfunction of new insulin pump, as the patient is well-controlled overall with A1c 7.5 during this hospitalization. Currently DKA is resolved with pH 7.39, Bicarb 19, BSG <200 and normalized BHB. - will continue Insulin gtt for now, may be able to convert to SQ later today - continue with hyperglycemic management per ICU - continue mIVFs with D5 1/2NSS + 20mEq KCl @ 150cc/hr HEME: 1. Acute on chronic normocytic anemia, Hgb 9.5 and MCV 88.9. No active signs of bleeding. Likely in context of chronic diabetic kidney disease, with acute exacerbation due to intraoperative blood loss and acute renal failure. - monitor CBC 2. Thrombocytopenia. Platelets decreased from 132 --> 59 today. With increase in PTT to 41.6. Likely in context of lactic acidosis, DKA, and hepatic dysfunction (see above), but cannot rule out early development of DIC. - d-dimer 84667, FDP >40, Fibrinogen 287 (WNL) - LDH and Factor XIII pending - monitor closely for signs of bleeding ID: S/p resection of necrotic small bowel yesterday, with elevated procalcitonin and lactate. MRSA nares negative and CXR without signs of pneumonia. - transitioned from Zosyn to Rocephin/Flagyl for 7 days total effective therapy, to cover for GI infection - Monitor fever curve LINES/IV ACCESS - PIVs and holcomb intact. Patient self-discontinued central line and arterial line yesterday. DVT PROPHYLAXIS - Heparin 5000 units SQ Q12H Dispo: Patient has an extremely guarded prognosis. Per hospitalist service the patient's family would like for him to be comfort measures only. He is being transferred to floor with [facility] status. Thank you for allowing us to be part of this patient's care. Please refer to Dr. Guillaume's documentation for any further recommendations. (2) DKA, type 1: (3) NSTEMI (non-ST elevated myocardial infarction): (4) DKA (diabetic ketoacidosis): (5) Hypermagnesemia: (6) Severe sepsis: (7) Lactic acid acidosis: (8) Small bowel ischemia: (9) Anemia: (10) Hyperphosphatemia: (11) Hyperkalemia: (12) Hypertension: Admission and Anticipated Discharge Date Admission Date: March 21, 2021 Supervising Physician Co-Signing Physician Notes Dr. Carranza was resident physician during care of patient. I separately evaluated patient for solano portions of the history and the exam. I was present during the critical portion of medical decision making, and I discussed the case with the resident. I generally agree with the findings and plan. Hemodynamics stable, cleared lactic acidosis, worsening creatinine will obtain nephrology consult. Self discontinued arterial line and central line and NG tube. Continue close observation of bilateral feet. Daughter contacted staff wishing palliative care consult will consult them as well patient DNR/DNI in event of cardiac arrest. With worsening renal function will convert to ceftriaxone and Flagyl for 7 days total effective therapy. New thrombocytopenia consider this to be secondary to disease status. Patient remains critically ill Update: Family desires comfort measures only, I believe the patient is in an end-stage medical condition with acute renal failure encephalopathy extremities with no blood flow, agree with comfort measures. Subjective Patient pulled out NG tube overnight; was complaining of sinus pain before he pulled it. Dilaudid was increased to Q4H PRN for pain. This morning the patient is mostly moaning in bed but is able to say his name and tell me that his back hurts. Not much meaningful conversation beyond that. Review of Systems Review of Systems: Unobtainable due to cognitive status Physical Exam Physical Exam: General: A+O to self, moaning in bed but responsive to questions and follows commands, NAD HEENT: Atraumatic, normocephalic. Pulm: CTAB A&P. -wheezes, -rales, -rhonchi. Symmetrical chest rise. No increased work of breathing or signs of respiratory distress. Cardiac: RRR, -mrg. Radial pulses intact and symmetrical. No LE edema. However lower extremities are cold and pale with no palpable dorsalis pedis or posterior tibial pulses Abdominal: soft and non-distended, laparotomy dressing c/d/i Skin: warm, dry, no rash. Results & Data Results & Data ([facility]) Vital Signs (Past 12 Hours) Vital Signs Temp Pulse Pulse Resp BP BP BP 03/23/21 05:56 77 14 134/76 03/23/21 05:26 80 14 146/77 H 03/23/21 04:56 78 18 124/74 03/23/21 04:26 79 13 130/75 03/23/21 04:00 29 H 03/23/21 03:56 79 22 126/76 03/23/21 03:26 75 13 125/80 03/23/21 02:56 85 15 129/73 03/23/21 02:26 76 26 H 142/75 H 03/23/21 01:56 95 H 97 H 24 156/86 H 156/81 H 03/23/21 01:26 89 89 19 130/81 130/81 03/23/21 00:00 36.9 C 81 03/22/21 22:00 86 16 114/50 L 03/22/21 21:00 92 H 14 108/54 L Pulse Ox 03/23/21 05:56 98 03/23/21 05:26 98 03/23/21 04:56 97 03/23/21 04:26 97 03/23/21 04:00 95 03/23/21 03:56 99 03/23/21 03:26 98 03/23/21 02:56 98 03/23/21 02:26 98 03/23/21 01:56 98 03/23/21 01:26 97 03/23/21 00:00 98 03/22/21 22:00 97 03/22/21 21:00 98 Critical Care Time I have personally spent 40 minutes of critical care time in the direct ma nagement of this patient. This is a life/limb threatening event. This includes time spent evaluating patient, direct bedside care, chart review, placing orders, interpretation of diagnostic studies, discussion with consultants, patient, and/or family members regarding treatment decisions, as well as other required patient management activities. This time is exclusive of all separately billable procedures, and teaching time and separate from and in addition to any other critical care service time. Resident Activity Tracking Resident Involvement: Resident Care Provided Care Provided: Adult [facility]
[2021-03-23] MEDS: HEPARIN SOD 5,000 UNIT/0.5 ML VIAL SQ SCH (08:05)
--- NOTE | 2021-03-23 08:24 | XRay Report ---
XR chest 1V portable HISTORY: Central Line Discontinued COMPARISON: Chest 03/22/2021. FINDINGS: Endotracheal tube and left jugular central venous catheter have been removed. No pneumothor ax. No pleural effusions. The heart is mildly enlarged. There are low lung volumes. Hazy bibasilar de nsities have improved. There is mild central pulmonary vascular congestion without overt edema. A shilpi ogastric tube is looped within the distal esophagus with the tip terminating at the distal esophagus. This should be repositioned. IMPRESSION: 1. Endotracheal tube and left jugular central venous catheter have been removed. 2. Nasogastric tube is looped within the gastroesophageal junction with the tip terminating at the di stal esophagus. This should be repositioned. 3. Hazy bibasilar densities persist. 4. Cardiomegaly and mild congestive change. ACT 112: Negative or not required by law. Electronically signed by: Tapan De Leon M.D. 03/23/2021 8:22 AM
[2021-03-23 08:33] LABS: D Dimer 10680 ug/L FEU (0-500)
[2021-03-23] MEDS ORDERED: cefTRIAXone SODIUM 2,000 MG in DEXTROSE 5% 50 ML IV SCH (10:00)
[2021-03-23] MEDS ORDERED: D5W AND 1/2NSS 1,000 ML IV SCH (10:00)
[2021-03-23] MEDS ORDERED: ONDANSETRON 4 MG OD TAB SL PRN (10:11)
[2021-03-23] MEDS ORDERED: MoRPHine SULFATE 2 MG/ML CARP IV PRN (10:11)
[2021-03-23] MEDS ORDERED: ATROPINE SULFATE 1% OP SOLN 5 ML BTL SL PRN (10:11)
[2021-03-23] MEDS ORDERED: LORazepam 0.5 MG TAB PO PRN (10:11)
[2021-03-23] MEDS ORDERED: ACETAMINOPHEN 650 MG SUPP PR PRN (10:11)
[2021-03-23] MEDS ORDERED: haloperidoL 1 MG TAB PO PRN (10:11)
--- NOTE | 2021-03-23 10:11 | Hospitalist Progress Note ---
Date of Service March 23, 2021 Assessment & Plan (1) Comfort measures only status: Plan: This is a 65-year-old male who has significant past medical history of type 1 diabetes mellitus, history of PE, HTN, HLD, History of Rios-en-Y, history of venous thrombosis, diabetic polyneuropathy, anxiety who presents to ED for altered mental status x1 day and noted to have DKA with blood sugar more than thousand Increase in troponin secondary to NSTEMI with abnormal echo Acute renal impairment in the creatinine has been going up Acute ischemia of the small bowel status post surgery with small bowel resection Has been developing multiorgan failure and DIC Has been developing mottling appearance of the feet in the lower extremities with extreme coldness Prognosis remains extremely poor Discussed with the family members especially the and the daughter and they are requesting the patient should be on comfort care Discussed with the diesel power mechanic who agrees with the measures Patient was put on comfort measures only and was transferred to medical floor for continuation of care Medical measures following admission and up till now are as follows. (2) Acute metabolic encephalopathy: Plan: Secondary to severe sepsis in the setting of small bowel ischemia and DKA Has been on intravenous Zosyn Remains unstable in the ICU Overall prognosis remains poor Non-ST FL Admission troponin was elevated and it was increasing Appreciate cardiology input and recommendation Echo was seen Heart rate and rhythm remained stab (3) Severe sepsis: Plan: Secondary to small bowel ischemia Received adequate intravenous fluid Status post resection of a small bowel Appreciate surgery input Appreciate diesel power mechanic input and recommendation Required intravenous pressor resents to maintain blood pressure (4) DKA, type 1: Plan: Presented with blood sugar of more than 1000 and DKA Received intravenous insulin administration Appreciate glycemic pharmacist input and recommendation Severe electrolyte imbalance Supplemented We will monitor (5) RONDA (acute kidney injury): Plan: Acute kidney injury secondary to dehydration and sepsis Receiving intravenous fluid Kidney function has not been improving (6) Hyperkalemia: Plan: Secondary to acute kidney injury (7) Small bowel ischemia: Plan: As above (8) Lactic acid acidosis: (9) Hypermagnesemia: (10) Hyperphosphatemia: (11) Anemia: (12) Gastric bypass status for obesity: Plan: This is a 65-year-old male who has significant past medical history of type 1 diabetes mellitus, history of PE, HTN, HLD, History of Rios-en-Y, history of venous thrombosis, diabetic polyneuropathy, anxiety who presents to ED for altered mental status x1 day. Patient's care was coordinated with the ED provider, diesel power mechanic Dr. Guillaume, Instructional Assistant Dr. Del Real and Surgeon Dr. Orantes. Patient with severe volume depletion in setting of severe DKA and a type I insulin pump dependent diabetic. Per CMS guidelines he meets for severe sepsis in setting of leukocytosis, lactic acidosis, RONDA, elevated procalcitonin and CT Abd pelvis findings concerning for small bowel ischemia. Patient admitted to ICU under care of diesel power mechanic Dr. Guillaume Continue resuscitation with IV fluid, insulin drip Continue broad-spectrum antibiotics with IV Zosyn, blood and urine cultures pending Seen and evaluated by general surgery -plan for exploratory surgery given concern for small bowel ischemia once resuscitated further serial labs bmp, vbg, lactic acid Stating levophed gtt for pressor support continue monitoring resp status - tachypnea in setting of compensation for severe metabolic derangements RONDA in setting of volume depletion and severe dka along with electrolyte abn - K improving from 7 to 5.8, pH 6.85 to 7. Central L IJ placed echo pending, cycle trops VTE ppx: hold / to anticipated surgery Dispo: ICU- further management per diesel power mechanic consultation FULL CODE PCP: Dov Padron Pt was seen and examined in collaboration with Dr. Glover, please see addendum Admission and Anticipated Discharge Date Admission Date: March 21, 2021 Subjective 03/22/2021 The patient was seen and examined in ICU He is status post small bowel resection and end-to-end anastomosis He has not been doing well since surgery He has been requiring pressor resents to maintain blood pressure Not been making enough urine 03/23/2021 The patient was seen and examined in ICU His condition has been deteriorating Restless and responds only to yes or no He has been developing multiorgan failure Discussed with the family members, the and the daughter and they want him to be on comfort care only Review of Systems Review of Systems: Unobtainable due to cognitive status Physical Exam Physical Exam: Lying in bed with distress secondary to shortness of breath and pain Constitutional: well developed, well nourished, + ill appearing and + obese Eyes: PERRL, conjunctivae normal, anicteric sclerae ENMT: external ear and nose normal, oropharynx normal Neck: trachea midline, no thyromegaly Respiratory: + respiratory distress, + labored breathing and + uses accessory muscles Cardiovascular: Rate/Rhythm: regular rate, regular rhythm and + tachycardic Heart Sounds: normal S1 and normal S2; no murmur Gastrointestinal (Abdomen): Inspection/Auscultation: + abdomen distended Percussion/Palpation: + abdomen tender and abdomen soft Skin: Mottled appearance of the feet and the lower part of the leg with extreme coldness Neurologic: + confused Results & Data Results & Data ([facility]) Vital Signs (Past 12 Hours) Vital Signs Temp Pulse Pulse Resp BP BP BP 03/23/21 08:00 36.9 C 20 03/23/21 07:56 84 20 151/74 H 03/23/21 07:26 76 14 130/84 03/23/21 07:00 03/23/21 06:56 76 13 139/88 03/23/21 06:26 78 18 142/82 H 03/23/21 05:56 77 14 134/76 03/23/21 05:26 80 14 146/77 H 03/23/21 04:56 78 18 124/74 03/23/21 04:26 79 13 130/75 03/23/21 04:00 29 H 03/23/21 03:56 79 22 126/76 03/23/21 03:26 75 13 125/80 03/23/21 02:56 85 15 129/73 03/23/21 02:26 76 26 H 142/75 H 03/23/21 01:56 95 H 97 H 24 156/86 H 156/81 H 03/23/21 01:26 89 89 19 130/81 130/81 03/23/21 00:00 36.9 C 81 Pulse Ox Pulse Ox 03/23/21 08:00 98 03/23/21 07:56 98 03/23/21 07:26 94 03/23/21 07:00 97 03/23/21 06:56 95 03/23/21 06:26 96 03/23/21 05:56 98 03/23/21 05:26 98 03/23/21 04:56 97 03/23/21 04:26 97 03/23/21 04:00 95 03/23/21 03:56 99 03/23/21 03:26 98 03/23/21 02:56 98 03/23/21 02:26 98 03/23/21 01:56 98 03/23/21 01:26 97 03/23/21 00:00 98 Laboratory Results Short CBC 03/23/21 Range/Units 04:53 WBC 12.59 H (4.8-10.8) K/uL Hgb 9.5 L (14.0-18.0) g/dL Hct 27.1 L (42-52) % Plt Count 59 L D (130-400) K/uL BMP 03/22/21 03/22/21 03/23/21 12:31 18:15 04:53 Sodium 141 142 142 Potassium 5.0 4.8 5.0 Chloride 110 H 112 H 113 H Carbon Dioxide 19 L 19 L 19 L BUN 57 H 63 H 65 H Creatinine 3.67 H 4.02 H D 4.44 H D Glucose 172 H 133 H 181 H Calcium 7.3 L 7.0 L 7.1 L Cardiac Enzymes 03/22/21 Range/Units 12:31 Troponin I 27.600 H* (0-0.045) ng/ml Liver Function 03/23/21 Range/Units 04:53 Total Bilirubin 0.7 (0.2-1) mg/dl AST 1580 H (15-37) U/L ALT 363 H (12-78) U/L Alkaline Phosphatase 51 (45-117) U/L Albumin 2.2 L (3.4-5.0) gm/dl Medications Administered Current Inpatient Medications Acetaminophen (Acetaminophen 650 Mg Supp) 650 mg AR Q6H PRN PRN Reason: Fever 37.8C or greater Stop: 04/22/21 10:10 Amlodipine Besylate (Amlodipine Besylate 5 Mg Tab) [facility] Stop: 04/21/21 08:59 Last Admin: 03/22/21 09:42 Dose: Not Given Documented by: Atropine Sulfate (Atropine Sulfate 1% Op Soln 5 Ml Btl) 4 drops SL Q1H PRN PRN Reason: Secretions or pulm congestion Stop: 04/22/21 10:10 Cyanocobalamin (Cyanocobalamin 500 Mcg Tablet (Vitamin B-12)) 1,000 mcg PO QAM VICKY Stop: 04/21/21 08:59 Last Admin: 03/23/21 08:01 Dose: Not Given Documented by: Dextrose (Dextrose 50% 50 Ml Syringe) 25 - 50 ml IV UD PRN; Protocol PRN Reason: Hypoglycemia Protocol Stop: 04/20/21 08:22 Glucagon (Glucagon For Inj 1 Mg Vial) 1 mg SQ UD PRN; Protocol PRN Reason: Hypoglycemia Protocol Stop: 04/20/21 08:22 Glucose (Glucose 10 Tabs/Tube) 4 - 8 tabs PO UD PRN; Protocol PRN Reason: Hypoglycemia Protocol Stop: 04/20/21 08:22 Glucose (Glucose 40% Gel 15 Gm Tube) 15 - 30 gm PO UD PRN; Protocol PRN Reason: Hypoglycemia Protocol Stop: 04/20/21 08:22 Haloperidol (Haloperidol 1 Mg Tab) 1 mg PO Q4H PRN PRN Reason: Anxiety/Agitation Stop: 04/22/21 10:10 Heparin Sodium (Porcine) (Heparin Sod 5,000 Unit/0.5 Ml Vial) 5,000 units SQ Q12 VICKY Stop: 04/21/21 20:59 Last Admin: 03/23/21 08:05 Dose: 5,000 units Documented by: Hydromorphone HCl (Hydromorphone Inj 0.5 Mg/0.5 Ml Syr) 0.5 mg IV Q4H PRN PRN Reason: Pain Stop: 04/05/21 20:04 Last Admin: 03/23/21 08:04 Dose: 0.5 mg Documented by: Insulin Human Regular 250 (units/ Sodium Chloride) 250 mls @ 1.7 mls/hr IV .Q24H VICKY; Protocol Stop: 04/20/21 08:29 Last Titration: 03/23/21 09:48 Dose: 1.7 units/hr, 1.7 mls/hr Documented by: Acetaminophen (Ofirmev) 1,000 mg in 100 mls @ 400 mls/hr IV Q8H PRN PRN Reason: Fever Stop: 03/24/21 22:59 Last Infusion: 03/23/21 06:37 Dose: Infused Documented by: Ceftriaxone Sodium 2,000 mg/ (Dextrose) 70 mls @ 100 mls/hr IV DAILY@1000 VICKY; Protocol Stop: 03/30/21 09:59 Metronidazole (Flagyl) 500 mg in 100 mls @ 100 mls/hr IV Q8 IVCKY Stop: 04/02/21 10:59 Dextrose/Sodium Chloride (D5w And 1/2nss) 1,000 mls @ 150 mls/hr IV .Q6H40M [facility] Stop: 04/22/21 09:59 Insulin Aspart (Insulin Aspart 100 Units/Ml 3 Ml Pen) 0 units SC ACHS [facility] Stop: 04/20/21 11:29 Last Admin: 03/23/21 07:57 Dose: Not Given Documented by: Lisinopril (Lisinopril 40 Mg Tab) 40 mg PO QAM [facility] Stop: 04/21/21 08:59 Last Admin: 03/22/21 09:43 Dose: Not Given Documented by: Lorazepam (Lorazepam 0.5 Mg Tab) 0.5 mg PO Q4H PRN PRN Reason: Anxiety/Agitation Stop: 04/22/21 10:10 Metoprolol Succinate (Metoprolol Succ 25mg Ext Rel Tab) 25 mg PO QAM [facility] Stop: 04/21/21 08:59 Last Admin: 03/22/21 09:43 Dose: Not Given Documented by: Miscellaneous (Carbohydrates For Hypoglycemia ) 15 - 30 gm PO UD PRN PRN Reason: Hypoglycemia Protocol Stop: 04/20/21 08:22 Miscellaneous (Icu Protocol For Hyperglycemia) 1 ea N/A PRN PRN; Protocol PRN Reason: Hyperglycemia Protocol Stop: 03/23/21 11:14 Miscellaneous (Check Scopolamine Patch Placement) 1 ea N/A QS [facility] Stop: 04/22/21 15:59 Miscellaneous (Remove Transderm-Scop Patch) 1 ea N/A Q72H [facility] Stop: 04/22/21 10:14 Morphine Sulfate (Morphine Sulfate 2 Mg/Ml Carp) 2 mg IV Q4H PRN PRN Reason: Pain or Respiratory Distress Stop: 04/06/21 10:10 Ondansetron HCl (Ondansetron 4 Mg Od Tab) 4 mg SL Q4H PRN PRN Reason: Nausea And Vomiting Stop: 04/22/21 10:10 Scopolamine (Scopolamine 1 Mg Tdsy) 1 mg TD Q72H [facility] Stop: 04/22/21 10:14 Spironolactone (Spironolactone 25 Mg Tab) 25 mg PO BID [facility] Stop: 04/20/21 20:59 Last Admin: 03/22/21 09:43 Dose: Not Given Documented by: Vitamin D (Cholecalciferol 1,000 Units 25 Mcg Tab) 2,000 [facility] [place] Stop: 04/21/21 08:59 Last Admin: 03/23/21 08:01 Dose: Not Given Documented by:
[2021-03-23] MEDS ORDERED: metroNIDAZOLE 500 MG/100 ML BAG IV SCH (11:00)
[2021-03-23] MEDS ORDERED: SCOPOLAMINE 1 MG TDSY TD SCH (11:00)
--- NOTE | 2021-03-23 11:31 | Progress Note ---
Date of Service March 23, 2021 Assessment & Plan (1) Severe sepsis: (2) Lactic acid acidosis: (3) Small bowel ischemia: Plan: pt is a 65 year-old male who was found on home floor, pt had abnormal labs, high WBC, troponin 5.5, blood surgar, 1000, CT scan finding, ischemia of bowel, Plan, pt is in ICU for resuscitation, once pt's condition is stable, I recommend to do exploratory laparotomy, possible bowel resection, stoma, D/W the benefits, risks and alternative of the surgery, with pt's , the risks - infection, bleeding, sepsis, multiple organs failure, DVT, MD, stoke, , pt's understood, she agrees with the surgery, I answered all questions, 03/22/2021 12:04 PM F/U resection small bowel for necrotic bowel, doing better, continue treatment, reduce IV fluid, consult vascular surgeon for left foot ischemia, repeat labs in morning, will F/U, Thanks ICU team take care this pt, 03/23/2021 11:[address] Orantes, per ICU attending, the and the daughter and they want him to be on comfort care only, (4) Acute metabolic encephalopathy: (5) DKA, type 1: (6) NSTEMI (non-ST elevated myocardial infarction): Admission and Anticipated Discharge Date Admission Date: March 21, 2021 Supervising Physician Co-Signing Physician Notes Dr. Carranza was resident physician during care of patient. I separately evaluated patient for [place] portions of the history and the exam. I was present during the critical portion of medical decision making, and I discussed the case with the resident. I generally agree with the findings and plan. Hemodynamics stable, cleared lactic acidosis, worsening creatinine will obtain nephrology consult. Self discontinued arterial line and central line and NG tub e. Continue close observation of bilateral feet. Daughter contacted staff wishing palliative care consult will consult them as well patient DNR/DNI in event of cardiac arrest. With worsening renal function will convert to ceftriaxone and Flagyl for 7 days total effective therapy. New thrombocytopenia consider this to be secondary to disease status. Patient remains critically ill Subjective 03/22/2021 The patient was seen and examined in ICU He is status post small bowel resection and end-to-end anastomosis He has not been doing well since surgery He has been requiring pressor resents to maintain blood pressure Not been making enough urine 03/23/2021 The patient was seen and examined in ICU His condition has been deteriorating Restless and responds only to yes or no He has been developing multiorgan failure Discussed with the family members, the and the daughter and they want him to be on comfort care only 03/23/2021 11:33AM, DR. Orantes, F/U resection small bowel, POD 2 per ICU attending-the and the daughter and they want him to be on comfort care only Physical Exam Eyes: PERRL, conjunctivae normal, anicteric sclerae Neck: trachea midline, no thyromegaly Respiratory: normal respiratory effort, lungs clear to auscultation Cardiovascular: RRR, no murmur, no edema Gastrointestinal (Abdomen): no distend, incision intact, no redness, Musculoskeletal: Extremities: + foot abnormality (big tor blud color, distal left foot pulse -, right side foot distal pulse ) Skin: no rashes, warm and dry Results & Data ([facility] [place]) Vital Signs (Past 12 Hours) Vital Signs Temp Pulse Pulse Resp BP BP BP 03/23/21 08:00 36.9 C 20 03/23/21 07:56 84 20 151/74 H 03/23/21 07:26 76 14 130/84 03/23/21 07:00 03/23/21 06:56 76 13 139/88 03/23/21 06:26 78 18 142/82 H 03/23/21 05:56 77 14 134/76 03/23/21 05:26 80 14 146/77 H 03/23/21 04:56 78 18 124/74 03/23/21 04:26 79 13 130/75 03/23/21 04:00 29 H 03/23/21 03:56 79 22 126/76 03/23/21 03:26 75 13 125/80 03/23/21 02:56 85 15 129/73 03/23/21 02:26 76 26 H 142/75 H 03/23/21 01:56 95 H 97 H 24 156/86 H 156/81 H 03/23/21 01:26 89 89 19 130/81 130/81 03/23/21 00:00 36.9 C 81 Pulse Ox Pulse Ox 03/23/21 08:00 98 03/23/21 07:56 98 03/23/21 07:26 94 03/23/21 07:00 97 03/23/21 06:56 95 03/23/21 06:26 96 03/23/21 05:56 98 03/23/21 05:26 98 03/23/21 04:56 97 03/23/21 04:26 97 03/23/21 04:00 95 03/23/21 03:56 99 03/23/21 03:26 98 03/23/21 02:56 98 03/23/21 02:26 98 03/23/21 01:56 98 03/23/21 01:26 97 03/23/21 00:00 98 Laboratory Results Abnormal lab results 03/21/21 03/22/21 03/22/21 Range/Units 16:52 12:31 12:31 WBC (4.8-10.8) K/uL RBC (4.7-6.1) M/uL Hgb (14.0-18.0) g/dL Hct (42-52) % Plt Count (130-400) K/uL MPV (7.4-10.4) fL Neut # (Auto) (1.4-6.5) K/uL Lymph # (Auto) (1.2-3.4) K/uL [place] # (Auto) (0.11-0.59) K/uL Immature Gran # (Auto) (0.00-0.02) K/uL Platelet Estimate (Normal) APTT (21.0-31.0) Seconds Fibrin Degrad Products (<10) mcg/ml D-Dimer (0-500) ug/L FEU VBG pCO2 (38-50) mmHg Chloride 110 H (98-107) mmol/L Carbon Dioxide 19 L (21-32) mmol/L Anion Gap 12.0 H (3-11) BUN 57 H (7-18) mg/dl Creatinine 3.67 H (0.6-1.4) mg/dl Glucose 172 H (70-99) mg/dl POC Glucose (70-99) mg/dl Lactate 2.1 H* (0.4-2.0) mmol/L Calcium 7.3 L (8.5-10.1) mg/dl Ionized Calcium (1.12-1.32) mmol/L AST (15-37) U/L ALT (12-78) U/L Lactate Dehydrogenase (87-241) U/L Troponin I (0-0.045) ng/ml Total Protein (6.4-8.2) gm/dl Albumin (3.4-5.0) gm/dl Globulin (2.5-4.0) gm/dl Procalcitonin (0-0.5) ng/ml Crossmatch See Detail 03/22/21 03/22/21 03/22/21 Range/Units 12:31 12:31 13:09 WBC (4.8-10.8) K/uL RBC (4.7-6.1) M/uL Hgb (14.0-18.0) g/dL Hct (42-52) % Plt Count (130-400) K/uL MPV (7.4-10.4) fL Neut # (Auto) (1.4-6.5) K/uL Lymph # (Auto) (1.2-3.4) K/uL [place] # (Auto) (0.11-0.59) K/uL Immature Gran # (Auto) (0.00-0.02) K/uL Platelet Estimate (Normal) APTT (21.0-31.0) Seconds Fibrin Degrad Products (<10) mcg/ml D-Dimer (0-500) ug/L FEU VBG pCO2 (38-50) mmHg Chloride (98-107) mmol/L Carbon Dioxide (21-32) mmol/L Anion Gap (3-11) BUN (7-18) mg/dl Creatinine (0.6-1.4) mg/dl Glucose (70-99) mg/dl POC Glucose 198 H (70-99) mg/dl Lactate (0.4-2.0) mmol/L Calcium (8.5-10.1) mg/dl Ionized Calcium 0.96 L (1.12-1.32) mmol/L AST (15-37) U/L ALT (12-78) U/L Lactate Dehydrogenase (87-241) U/L Troponin I 27.600 H* (0-0.045) ng/ml Total Protein (6.4-8.2) gm/dl Albumin (3.4-5.0) gm/dl Globulin (2.5-4.0) gm/dl Procalcitonin (0-0.5) ng/ml Crossmatch 03/22/21 03/22/21 03/22/21 Range/Units 14:06 15:05 16:00 WBC (4.8-10.8) K/uL RBC (4.7-6.1) M/uL Hgb (14.0-18.0) g/dL Hct (42-52) % Plt Count (130-400) K/uL MPV (7.4-10.4) fL Neut # (Auto) (1.4-6.5) K/uL Lymph # (Auto) (1.2-3.4) K/uL [place] # (Auto) (0.11-0.59) K/uL Immature Gran # (Auto) (0.00-0.02) K/uL Platelet Estimate (Normal) APTT (21.0-31.0) Seconds Fibrin Degrad Products (<10) mcg/ml D-Dimer (0-500) ug/L FEU VBG pCO2 (38-50) mmHg Chloride (98-107) mmol/L Carbon Dioxide (21-32) mmol/L Anion Gap (3-11) BUN (7-18) mg/dl Creatinine (0.6-1.4) mg/dl Glucose (70-99) mg/dl POC Glucose 188 H 153 H 145 H (70-99) mg/dl Lactate (0.4-2.0) mmol/L Calcium (8.5-10.1) mg/dl Ionized Calcium (1.12-1.32) mmol/L AST (15-37) U/L ALT (12-78) U/L Lactate Dehydrogenase (87-241) U/L Troponin I (0-0.045) ng/ml Total Protein (6.4-8.2) gm/dl Albumin (3.4-5.0) gm/dl Globulin (2.5-4.0) gm/dl Procalcitonin (0-0.5) ng/ml Crossmatch 03/22/21 03/22/21 03/22/21 Range/Units 17:10 18:15 18:15 WBC (4.8-10.8) K/uL RBC (4.7-6.1) M/uL Hgb (14.0-18.0) g/dL Hct (42-52) % Plt Count (130-400) K/uL MPV (7.4-10.4) fL Neut # (Auto) (1.4-6.5) K/uL Lymph # (Auto) (1.2-3.4) K/uL [place] # (Auto) (0.11-0.59) K/uL Immature Gran # (Auto) (0.00-0.02) K/uL Platelet Estimate (Normal) APTT (21.0-31.0) Seconds Fibrin Degrad Products (<10) mcg/ml D-Dimer (0-500) ug/L FEU VBG pCO2 (38-50) mmHg Chloride 112 H (98-107) mmol/L Carbon Dioxide 19 L (21-32) mmol/L Anion Gap (3-11) BUN 63 H (7-18) mg/dl Creatinine 4.02 H D (0.6-1.4) mg/dl Glucose 133 H (70-99) mg/dl POC Glucose 134 H (70-99) mg/dl Lactate 2.7 H* (0.4-2.0) mmol/L Calcium 7.0 L (8.5-10.1) mg/dl Ionized Calcium (1.12-1.32) mmol/L AST (15-37) U/L ALT (12-78) U/L Lactate Dehydrogenase (87-241) U/L Troponin I (0-0.045) ng/ml Total Protein (6.4-8.2) gm/dl Albumin (3.4-5.0) gm/dl Globulin (2.5-4.0) gm/dl Procalcitonin (0-0.5) ng/ml Crossmatch 03/22/21 03/22/21 03/22/21 Range/Units 18:15 18:21 19:41 WBC (4.8-10.8) K/uL RBC (4.7-6.1) M/uL Hgb (14.0-18.0) g/dL Hct (42-52) % Plt Count (130-400) K/uL MPV (7.4-10.4) fL Neut # (Auto) (1.4-6.5) K/uL Lymph # (Auto) (1.2-3.4) K/uL [place] # (Auto) (0.11-0.59) K/uL Immature Gran # (Auto) (0.00-0.02) K/uL Platelet Estimate (Normal) APTT (21.0-31.0) Seconds Fibrin Degrad Products (<10) mcg/ml D-Dimer (0-500) ug/L FEU VBG pCO2 30 L (38-50) mmHg Chloride (98-107) mmol/L Carbon Dioxide (21-32) mmol/L Anion Gap (3-11) BUN (7-18) mg/dl Creatinine (0.6-1.4) mg/dl Glucose (70-99) mg/dl POC Glucose 139 H 151 H (70-99) mg/dl Lactate (0.4-2.0) mmol/L Calcium (8.5-10.1) mg/dl Ionized Calcium (1.12-1.32) mmol/L AST (15-37) U/L ALT (12-78) U/L Lactate Dehydrogenase (87-241) U/L Troponin I (0-0.045) ng/ml Total Protein (6.4-8.2) gm/dl Albumin (3.4-5.0) gm/dl Globulin (2.5-4.0) gm/dl Procalcitonin (0-0.5) ng/ml Crossmatch 03/22/21 03/22/21 03/22/21 Range/Units 20:16 21:52 22:44 WBC (4.8-10.8) K/uL RBC (4.7-6.1) M/uL Hgb (14.0-18.0) g/dL Hct (42-52) % Plt Count (130-400) K/uL MPV (7.4-10.4) fL Neut # (Auto) (1.4-6.5) K/uL Lymph # (Auto) (1.2-3.4) K/uL [place] # (Auto) (0.11-0.59) K/uL Immature Gran # (Auto) (0.00-0.02) K/uL Platelet Estimate (Normal) APTT (21.0-31.0) Seconds Fibrin Degrad Products (<10) mcg/ml D-Dimer (0-500) ug/L FEU VBG pCO2 (38-50) mmHg Chloride (98-107) mmol/L Carbon Dioxide (21-32) mmol/L Anion Gap (3-11) BUN (7-18) mg/dl Creatinine (0.6-1.4) mg/dl Glucose (70-99) mg/dl POC Glucose 141 H 159 H 194 H (70-99) mg/dl Lactate (0.4-2.0) mmol/L Calcium (8.5-10.1) mg/dl Ionized Calcium (1.12-1.32) mmol/L AST (15-37) U/L ALT (12-78) U/L Lactate Dehydrogenase (87-241) U/L Troponin I (0-0.045) ng/ml Total Protein (6.4-8.2) gm/dl Albumin (3.4-5.0) gm/dl Globulin (2.5-4.0) gm/dl Procalcitonin (0-0.5) ng/ml Crossmatch 03/22/21 03/23/21 03/23/21 Range/Units 23:25 01:16 02:13 WBC (4.8-10.8) K/uL RBC (4.7-6.1) M/uL Hgb (14.0-18.0) g/dL Hct (42-52) % Plt Count (130-400) K/uL MPV (7.4-10.4) fL Neut # (Auto) (1.4-6.5) K/uL Lymph # (Auto) (1.2-3.4) K/uL [place] # (Auto) (0.11-0.59) K/uL Immature Gran # (Auto) (0.00-0.02) K/uL Platelet Estimate (Normal) APTT (21.0-31.0) Seconds Fibrin Degrad Products (<10) mcg/ml D-Dimer (0-500) ug/L FEU VBG pCO2 (38-50) mmHg Chloride (98-107) mmol/L Carbon Dioxide (21-32) mmol/L Anion Gap (3-11) BUN (7-18) mg/dl Creatinine (0.6-1.4) mg/dl Glucose (70-99) mg/dl POC Glucose 188 H 174 H 159 H (70-99) mg/dl Lactate (0.4-2.0) mmol/L Calcium (8.5-10.1) mg/dl Ionized Calcium (1.12-1.32) mmol/L AST (15-37) U/L ALT (12-78) U/L Lactate Dehydrogenase (87-241) U/L Troponin I (0-0.045) ng/ml Total Protein (6.4-8.2) gm/dl Albumin (3.4-5.0) gm/dl Globulin (2.5-4.0) gm/dl Procalcitonin (0-0.5) ng/ml Crossmatch 03/23/21 03/23/21 03/23/21 Range/Units 03:11 04:53 04:53 WBC 12.59 H (4.8-10.8) K/uL RBC 3.05 L (4.7-6.1) M/uL Hgb 9.5 L (14.0-18.0) g/dL Hct 27.1 L (42-52) % Plt Count 59 L D (130-400) K/uL MPV 10.6 H (7.4-10.4) fL Neut # (Auto) 10.94 H (1.4-6.5) K/uL Lymph # (Auto) 0.64 L (1.2-3.4) K/uL [place] # (Auto) 0.83 H (0.11-0.59) K/uL Immature Gran # (Auto) 0.18 H (0.00-0.02) K/uL Platelet Estimate Decreased L (Normal) APTT (21.0-31.0) Seconds Fibrin Degrad Products (<10) mcg/ml D-Dimer (0-500) ug/L FEU VBG pCO2 (38-50) mmHg Chloride 113 H (98-107) mmol/L Carbon Dioxide 19 L (21-32) mmol/L Anion Gap (3-11) BUN 65 H (7-18) mg/dl Creatinine 4.44 H D (0.6-1.4) mg/dl Glucose 181 H (70-99) mg/dl POC Glucose 184 H (70-99) mg/dl Lactate (0.4-2.0) mmol/L Calcium 7.1 L (8.5-10.1) mg/dl Ionized Calcium (1.12-1.32) mmol/L AST 1580 H (15-37) U/L ALT 363 H (12-78) U/L Lactate Dehydrogenase (87-241) U/L Troponin I (0-0.045) ng/ml Total Protein 4.5 L (6.4-8.2) gm/dl Albumin 2.2 L (3.4-5.0) gm/dl Globulin 2.3 L (2.5-4.0) gm/dl Procalcitonin (0-0.5) ng/ml Crossmatch 03/23/21 03/23/21 03/23/21 Range/Units 04:53 04:53 05:07 WBC (4.8-10.8) K/uL RBC (4.7-6.1) M/uL Hgb (14.0-18.0) g/dL Hct (42-52) % Plt Count (130-400) K/uL MPV (7.4-10.4) fL Neut # (Auto) (1.4-6.5) K/uL Lymph # (Auto) (1.2-3.4) K/uL [place] # (Auto) (0.11-0.59) K/uL Immature Gran # (Auto) (0.00-0.02) K/uL Platelet Estimate (Normal) APTT 41.6 H (21.0-31.0) Seconds Fibrin Degrad Products (<10) mcg/ml D-Dimer (0-500) ug/L FEU VBG pCO2 (38-50) mmHg Chloride (98-107) mmol/L Carbon Dioxide (21-32) mmol/L Anion Gap (3-11) BUN (7-18) mg/dl Creatinine (0.6-1.4) mg/dl Glucose (70-99) mg/dl POC Glucose 218 H (70-99) mg/dl Lactate (0.4-2.0) mmol/L Calcium (8.5-10.1) mg/dl Ionized Calcium 1.00 L (1.12-1.32) mmol/L AST (15-37) U/L ALT (12-78) U/L Lactate Dehydrogenase (87-241) U/L Troponin I (0-0.045) ng/ml Total Protein (6.4-8.2) gm/dl Albumin (3.4-5.0) gm/dl Globulin (2.5-4.0) gm/dl Procalcitonin (0-0.5) ng/ml Crossmatch 03/23/21 03/23/21 03/23/21 Range/Units 07:09 07:47 07:47 WBC (4.8-10.8) K/uL RBC (4.7-6.1) M/uL Hgb (14.0-18.0) g/dL Hct (42-52) % Plt Count (130-400) K/uL MPV (7.4-10.4) fL Neut # (Auto) (1.4-6.5) K/uL Lymph # (Auto) (1.2-3.4) K/uL [place] # (Auto) (0.11-0.59) K/uL Immature Gran # (Auto) (0.00-0.02) K/uL Platelet Estimate (Normal) APTT (21.0-31.0) Seconds Fibrin Degrad Products >40 H (<10) mcg/ml D-Dimer (0-500) ug/L FEU VBG pCO2 (38-50) mmHg Chloride (98-107) mmol/L Carbon Dioxide (21-32) mmol/L Anion Gap (3-11) BUN (7-18) mg/dl Creatinine (0.6-1.4) mg/dl Glucose (70-99) mg/dl POC Glucose 188 H (70-99) mg/dl Lactate (0.4-2.0) mmol/L Calcium (8.5-10.1) mg/dl Ionized Calcium (1.12-1.32) mmol/L AST (15-37) U/L ALT (12-78) U/L Lactate Dehydrogenase (87-241) U/L Troponin I (0-0.045) ng/ml Total Protein (6.4-8.2) gm/dl Albumin (3.4-5.0) gm/dl Globulin (2.5-4.0) gm/dl Procalcitonin 8.06 H (0-0.5) ng/ml Crossmatch 03/23/21 03/23/21 03/23/21 Range/Units 07:47 07:47 09:43 WBC (4.8-10.8) K/uL RBC (4.7-6.1) M/uL Hgb (14.0-18.0) g/dL Hct (42-52) % Plt Count (130-400) K/uL MPV (7.4-10.4) fL Neut # (Auto) (1.4-6.5) K/uL Lymph # (Auto) (1.2-3.4) K/uL [place] # (Auto) (0.11-0.59) K/uL Immature Gran # (Auto) (0.00-0.02) K/uL Platelet Estimate (Normal) APTT (21.0-31.0) Seconds Fibrin Degrad Products (<10) mcg/ml D-Dimer 93707 H* (0-500) ug/L FEU VBG pCO2 (38-50) mmHg Chloride (98-107) mmol/L Carbon Dioxide (21-32) mmol/L Anion Gap (3-11) BUN (7-18) mg/dl Creatinine (0.6-1.4) mg/dl Glucose (70-99) mg/dl POC Glucose 140 H (70-99) mg/dl Lactate (0.4-2.0) mmol/L Calcium (8.5-10.1) mg/dl Ionized Calcium (1.12-1.32) mmol/L AST (15-37) U/L ALT (12-78) U/L Lactate Dehydrogenase 1200 H (87-241) U/L Troponin I (0-0.045) ng/ml Total Protein (6.4-8.2) gm/dl Albumin (3.4-5.0) gm/dl Globulin (2.5-4.0) gm/dl Procalcitonin (0-0.5) ng/ml Crossmatch 03/23/21 Range/Units 11:17 WBC (4.8-10.8) K/uL RBC (4.7-6.1) M/uL Hgb (14.0-18.0) g/dL Hct (42-52) % Plt Count (130-400) K/uL MPV (7.4-10.4) fL Neut # (Auto) (1.4-6.5) K/uL Lymph # (Auto) (1.2-3.4) K/uL [place] # (Auto) (0.11-0.59) K/uL Immature Gran # (Auto) (0.00-0.02) K/uL Platelet Estimate (Normal) APTT (21.0-31.0) Seconds Fibrin Degrad Products (<10) mcg/ml D-Dimer (0-500) ug/L FEU VBG pCO2 (38-50) mmHg Chloride (98-107) mmol/L Carbon Dioxide (21-32) mmol/L Anion Gap (3-11) BUN (7-18) mg/dl Creatinine (0.6-1.4) mg/dl Glucose (70-99) mg/dl POC Glucose 145 H (70-99) mg/dl Lactate (0.4-2.0) mmol/L Calcium (8.5-10.1) mg/dl Ionized Calcium (1.12-1.32) mmol/L AST (15-37) U/L ALT (12-78) U/L Lactate Dehydrogenase (87-241) U/L Troponin I (0-0.045) ng/ml Total Protein (6.4-8.2) gm/dl Albumin (3.4-5.0) gm/dl Globulin (2.5-4.0) gm/dl Procalcitonin (0-0.5) ng/ml Crossmatch
--- NOTE | 2021-03-23 11:31 | Palliative Care Consultation ---
Date of Consultation March 23, 2021 Assessment & Plan (1) Palliative care encounter: Mr. Pittman is a 65 year old male who was found down at home with altered mental status and brought in to the [facility]. He was found to have a blood sugar of 1000, ischemic bowel and sepsis. He did proceed with a bowel resection, but has been in multiorgan system failure including his liver and kidneys, DIC, and has developed mottling in his feet and lower extremities. On admission he also had a NSTEMI with a peaked troponin of 27.6. Additional PMH includes DM1, PE, HTN, HLD, Rios-en-Y gastric bypass, anxiety and depression. The hospitalist and securities trader had conversation with the family and they have decided to proceed with comfort measures only. Palliative Medicine was consulted to discuss overall goals of care and address symptom management. I met with Mr. Pittman who was able to open his eyes for me, but was unable to have meaningful conversation or answer questions appropriately. I met with the patients , Gisela, and his daughter, Darrick (an RN in [employer] school) and brought them back to the patients room. Dr. Glover did have extensive conversation with the family prior to my visit. The patient had a relatively good quality of life prior to these acute events. 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 His said he did have quite the temper at times, and she is not surprised at him being agitated while inpatient. When reviewing goals of care with family, they stated that the patient has indicated numerous times that he would never want to live if he could not mow his yard, drive his bus, etc. At this point, he has DIC, liver and renal failure, and likely would require bilateral amputation; however, is not a surgical candidate per discussion with the hospitalist. At this time, family has made full decision to transition to comfort measures only. I did order routine Ativan as he is increasingly restless. Due to his creatinine being 4.44, I believe Dilaudid would be more beneficial for him to avoid opioid toxicity. I discussed a low threshold for starting a Dilaudid infusion if he remains uncomfortable. Family is in support of this if necessary. Bereavement cart ordered. Palliative medicine will follow. (2) Small bowel ischemia: (3) Ischemia of both lower extremities: (4) Shortness of breath: (5) Terminal restlessness: History of Present Illness Reason for Consultation: Goals of care Requesting Physician: Dr. Glover Attending Physician: Layla Glover MD History of Present Illness Mr. Pittman is a 65 year old male who was found down at home with altered mental status and brought in to the [facility]. He was found to have a blood sugar of 1000, ischemic bowel and sepsis. He did proceed with a bowel resection, but has been in multiorgan system failure including his liver and kidneys, DIC, and has developed mottling in his feet and lower extremities. On admission he also had a NSTEMI with a peaked troponin of 27.6. Additional PMH includes DM1, PE, HTN, HLD, Rios-en-Y gastric bypass, anxiety and depression. The hospitalist and securities trader had conversation with the family and they have decided to proceed with comfort measures only. Palliative Medicine was consulted to discuss overall goals of care and address symptom management. Please see A/P for further details. Thanks for involving palliative medicine with this unfortunate individual. Allergies Allergy/AdvReac Type Severity Reaction Status Date / Time nortriptyline Allergy Mild ITCHING Verified 03/22/21 11:01 hydromorphone [From Dilaudid] AdvReac Mild Nausea/Vomi Verified 03/22/21 11:01 ting Home Medications Medication Instructions Recorded Confirmed Type blood sugar diagnostic (Contour #10 ea 05/20/19 11/18/20 History Next Test Strips) blood-glucose sensor (Dexcom G6 #3 ea 07/31/19 02/17/21 History Sensor) cyanocobalamin (vitamin B-12) 1,000 mcg PO QAM 02/03/20 03/21/21 History 1,000 mcg capsule metoprolol succinate 25 mg 25 mg PO QAM 11/18/20 03/21/21 History tablet,extended release 24 hr (Toprol XL) insulin lispro 100 unit/mL See Rx Instructions SQ .COMPLEX 02/23/21 03/21/21 Rx subcutaneous solution (Humalog #50 ml U-100 Insulin) amlodipine 5 mg tablet (Norvasc) 5 mg PO QAM 03/21/21 03/21/21 History cholecalciferol (vitamin D3) 50 2,000 units PO QAM 03/21/21 03/21/21 History mcg (2,000 unit) capsule (Vitamin D3) lisinopril 40 mg tablet (Zestril) 40 mg PO QAM 03/21/21 03/21/21 History spironolactone 25 mg tablet 25 mg PO BID 03/21/21 03/21/21 History (Aldactone) Patient History Medical History (Updated 03/23/21 @ 12:36 by MELODY Morton) COPD (chronic obstructive pulmonary disease) Diabetes mellitus with diabetic polyneuropathy Diabetes type 1, controlled Diabetic peripheral neuropathy associated with type 1 diabetes mellitus History of pulmonary embolism Hx of recurrent vertebral fractures Hypertension Ischemia of both lower extremities Palliative care encounter Shortness of breath Terminal restlessness Vitamin D deficiency Surgical History Gastric bypass status for obesity History of back surgery History of carpal tunnel release of both wrists Hx of knee surgery Hx of shoulder surgery S/P cholecystectomy Ulnar nerve entrapment corrected Family History Mother Alzheimer disease Hypertension Brother Diabetes A-fib Father Bone cancer Social History Smoking Status: Never smoker Hx Alcohol Use: Yes Alcohol Intake Frequency Comment: Occasional Preferred Language: Monegasque Communication Ability: Unable Beliefs That Will Affect Care: None marital status: Current Living Situation: Spouse current occupational status: retired Assistive Devices: Oxygen - Continuous Review of Systems Review of Systems: [facility] Assessment Scale: Pain: 2/3 Anxiety: 2/3 SOB: 2/3 PPS: 20% Physical Exam Constitutional: + acute distress and + ill appearing ENMT: Mouth: + dry oral mucous membranes Respiratory: + labored breathing Auscultation: + diminished lung sounds Cardiovascular: Rate/Rhythm: regular rate and regular rhythm Heart Sounds: normal S1 and normal S2 Extremities: + edema Gastrointestinal (Abdomen): Inspection/Auscultation: + abdominal surgical incision Percussion/Palpation: + abdomen tender Skin: + turgor decreased, + skin tightening, + ecchymosis and + mottling Psychiatric: Insight: + impaired insight Judgement: + impaired judgement Results & Data ([facility]) Vital Signs (Past 12 Hours) Vital Signs Temp Pulse Pulse Resp BP BP BP 03/23/21 08:00 36.9 C 20 03/23/21 07:56 84 20 151/74 H 03/23/21 07:26 76 14 130/84 03/23/21 07:00 03/23/21 06:56 76 13 139/88 03/23/21 06:26 78 18 142/82 H 03/23/21 05:56 77 14 134/76 03/23/21 05:26 80 14 146/77 H 03/23/21 04:56 78 18 124/74 03/23/21 04:26 79 13 130/75 03/23/21 04:00 29 H 03/23/21 03:56 79 22 126/76 03/23/21 03:26 75 13 125/80 03/23/21 02:56 85 15 129/73 03/23/21 02:26 76 26 H 142/75 H 03/23/21 01:56 95 H 97 H 24 156/86 H 156/81 H 03/23/21 01:26 89 89 19 130/81 130/81 03/23/21 00:00 36.9 C 81 Pulse Ox Pulse Ox 03/23/21 08:00 98 03/23/21 07:56 98 03/23/21 07:26 94 03/23/21 07:00 97 03/23/21 06:56 95 03/23/21 06:26 96 03/23/21 05:56 98 03/23/21 05:26 98 03/23/21 04:56 97 03/23/21 04:26 97 03/23/21 04:00 95 03/23/21 03:56 99 03/23/21 03:26 98 03/23/21 02:56 98 03/23/21 02:26 98 03/23/21 01:56 98 03/23/21 01:26 97 03/23/21 00:00 98 PG Care Time/CCT Total # of Minutes Spent Total Time Spent with Patient: Total time spent is greater than 50% in coordination of care (as documented) at patient's floor/unit and/or counseling patient: 100 minutes with > 50% of that time spent assessing the patient, discussing goals of care with patients and daughter, addressing symptom management needs, and collaborating with IDT Coding Level of Care Code 95079 Initial Inpt Care Lvl 3 Diagnoses Palliative care encounter Z51.5 Small bowel ischemia K55.9 Ischemia of both lower extremities I99.8 Shortness of breath R06.02 Terminal restlessness R45.1 Time Spent (min) 100
[2021-03-23] MEDS ORDERED: HYDROmorphone INJ 0.5 MG/0.5 ML SYR IV PRN ×2 (11:56→12:33)
[2021-03-23] MEDS ORDERED: OLANZapine 5 MG TABLET PO PRN (11:57)
[2021-03-23] MEDS: LORazepam 1 MG/2 ML VIAL IV SCH ×3 (12:15→20:08)
[2021-03-23] MEDS ORDERED: STAT IV Infusion **Titration per Protocol STA (15:19)
[2021-03-23] MEDS ORDERED: HYDROmorphone/NSS 100 MG/100 ML BAG IV SCH (16:00)
[2021-03-23] MEDS ORDERED: CHECK SCOPOLAMINE PATCH PLACEMENT SCH (16:00)
[2021-03-23] MEDS ORDERED: GLYCOPYRROLATE 0.2 MG/ML VIAL IV PRN (19:10)
[2021-03-24] MEDS: LORazepam 1 MG/2 ML VIAL IV SCH (00:25)
--- NOTE | 2021-03-24 03:35 | Death Pronouncement Note ---
Date of Service March 24, 2021 Pronouncement Note Admission Date Admission Date: March 21, 2021 Date and Time of Date of : 03/24/21 Time of : 03:40 Contributing Factors (1) Palliative care encounter: (2) Small bowel ischemia: (3) Ischemia of both lower extremities: (4) Shortness of breath: (5) Terminal restlessness: Summary Additional details: Discharge summary and certificate to be completed by Dr. Glover. Additional Data Attending physician: Layla Glover MD
--- NOTE | 2021-03-24 08:38 | Discharge Summary ---
Date of Service March 24, 2021 Admission HPI Per Admitting Provider This is a 65-year-old male who has significant past medical history of type 1 diabetes mellitus, history of PE, HTN, HLD, History of Rios-en-Y, history of venous thrombosis, diabetic polyneuropathy, anxiety who presents to ED for altered mental status x1 day. is at bedside. She states he fell on Saturday and complained of back pain. Due to back pain and feeling unwell he spent all day yesterday in bed. He did have nausea and vomiting but no other complaints per . She slept on the couch and when she went to check on him this morning he was found on the floor and completely altered. She called EMS. Patient unable to give history secondary to cognitive status. He does have history of type 1 diabetes managed on insulin pump. EMS found him to be significantly hyperglycemic. In ED patient was found to be in severe DKA with presenting blood sugar greater than 1000. His initial VBG pH was 6.85 with a CO2 of 30. He met severe sepsis criteria secondary to leukocytosis 32.38k, lactic acidosis 5.3, & RONDA with BUN [address] abdomen pelvis concerning for small intestine ischemia with pneumatosis intestinalis. He received a total of 3 L of IV fluid prior to my evaluation, blood and urine cultures were obtained, started empirically on IV Zosyn and received 14 unit bolus of IV insulin and started on insulin drip. He also received calcium gluconate for hyperkalemia. Admission Exam Per Admitting Provider Physical Exam: Constitutional: Critically ill male, +acute distress, vitals as above, confused, alerted Head: Normocephalic, Atraumatic Eyes: PERRL, conjunctivae erythematous, anicteric sclerae ENMT: external ear and nose normal, oropharynx normal, false dentition noted Neck: trachea midline, no thyromegaly normal visual inspection Respiratory:increased resp effort, lungs clear to auscultation, no wheeze, rales, rhonchi. no accessory muscle use Cardiovascular: RRR, no murmur, no edema, cool peripheral ext Vessels: no JVD or carotid bruit Chest: normal inspection of chest Abdomen: normal bowel sounds, soft, + diffuse tenderness to palpation, Musculoskeletal: no cyanosis, moves all 4 ext Skin: no rashes, warm and dry normal turgor Neurologic: PERRL, EOMI, accommodation nl, no face palsy, no dysarthria CN's II-XI intact bilaterally and moves all extremities Psychiatric: not alert, confused, euthymic affect : holcomb draining yellow urine Principal Diagnosis Patient :03/24/2021 at 0340 hrs. Causes of Severe Sepsis Small Bowel Ischemia Acute Renal failure Diabetic Ketoacidosis Discharge Data Allergies Allergy/AdvReac Type Severity Reaction Status Date / Time nortriptyline Allergy Mild ITCHING Verified 03/22/21 11:01 hydromorphone [From Dilaudid] AdvReac Mild Nausea/Vomi Verified 03/22/21 11:01 ting Consultations 03/21/21 09:23 ED Decision to Admit Stat 03/21/21 09:27 Consult General Surgery Stat 03/21/21 09:38 Consult Veneer Patcher Stat 03/21/21 09:51 Consult Cardiology Stat 03/22/21 11:47 Consult Vascular Surgery Stat 03/23/21 10:12 Consult Palliative Care Routine Procedures Performed Operation Date: 03/21/21 13:30 Actual Procedures p Exploratory Laparotomy, Small Bowel Resection(Not Applicable) - Pita Orantes MD Ordered Studies 03/21/21 07:39 CT abd pelvis wo con Stat CT head/brain wo con Stat 03/21/21 07:56 CT cervical spine wo con Stat 03/22/21 12:00 US arterial duplex LE BI Stat Hospital Course (1) Palliative care encounter: (2) Small bowel ischemia: As above (3) Ischemia of both lower extremities: (4) Shortness of breath: (5) Terminal restlessness: This is a 65-year-old male who has significant past medical history of type 1 diabetes mellitus, history of PE, HTN, HLD, History of Rios-en-Y, history of venous thrombosis, diabetic polyneuropathy, anxiety who presents to ED for altered mental status x1 day. Patient's care was coordinated with the ED provider, solution advisor Dr. Guillaume, Svp Dr. Del Real and Surgeon Dr. Orantes. Patient with severe volume depletion in setting of severe DKA and a type I insulin pump dependent diabetic. Per CMS guidelines he meets for severe sepsis in setting of leukocytosis, lactic acidosis, RONDA, elevated procalcitonin and CT Abd pelvis findings concerning for small bowel ischemia. Patient admitted to ICU under care of solution advisor Dr. Guillaume Continue resuscitation with IV fluid, insulin drip Continue broad-spectrum antibiotics with IV Zosyn, blood and urine cultures pending Seen and evaluated by general surgery -plan for exploratory surgery given concern for small bowel ischemia once resuscitated further serial labs bmp, vbg, lactic acid Stating levophed gtt for pressor support continue monitoring resp status - tachypnea in setting of compensation for severe metabolic derangements RONDA in setting of volume depletion and severe dka along with electrolyte abn - K improving from 7 to 5.8, pH 6.85 to 7. Central L IJ placed echo pending, cycle trops VTE ppx: hold 2/ to anticipated surgery Dispo: ICU- further management per solution advisor consultation FULL CODE PCP: Dov Padron Pt was seen and examined in collaboration with Dr. Glover, please see addendum Total Time Total Time Spent Total Time Spent (In Minutes): 20 minutes Discharge Plan Discharge Items Patient Disposition: Discharge Diagnosis: Causes of Severe Sepsis Small Bowel Ischemia Acute Renal failure Diabetic Ketoacidosis Addtl Attending Provider Instructions: Familymembers notified
--- NOTE | 2021-03-24 15:19 | Electrocardiogram Report ---
Test Reason : Blood Pressure : / mmHG Vent. Rate : 130 BPM Atrial Rate : 130 BPM P-R Int : 248 ms QRS Dur : 118 ms QT Int : 236 ms P-R-T Axes : 074 047 -23 degrees QTc Int : 347 ms Sinus rhythm with 1st degree A-V block Low voltage QRS Right bundle branch block Abnormal ECG When compared with ECG of 07-SEP-2019 19:26, Right bundle branch block is now Present with 1st degree A-V block is now Present Confirmed by Kevin Calhoun ([id number]) on 03/24/2021 3:19:03 PM Referred By: REFERRED SELF Confirmed By:Kevin Calhoun
--- NOTE | 2021-03-24 15:21 | Electrocardiogram Report ---
Test Reason : Blood Pressure : / mmHG Vent. Rate : 070 BPM Atrial Rate : 070 BPM P-R Int : 000 ms QRS Dur : 032 ms QT Int : 210 ms P-R-T Axes : 000 000 243 degrees QTc Int : 227 ms Sinus rhythm Right bundle branch block Abnormal ECG When compared with ECG of 21-MAR-2021 07:34, (unconfirmed) No significant change Confirmed by Kevin Calhoun ([id number]) on 03/24/2021 3:21:38 PM Referred By: REFERRED SELF Confirmed By:Kevin Calhoun
--- NOTE | 2021-03-24 17:11 | Electrocardiogram Report ---
Test Reason : Blood Pressure : / mmHG Vent. Rate : 078 BPM Atrial Rate : 078 BPM P-R Int : 136 ms QRS Dur : 090 ms QT Int : 400 ms P-R-T Axes : 073 -27 039 degrees QTc Int : 456 ms Normal sinus rhythm Low voltage QRS Nonspecific ST abnormality Abnormal ECG When compared with ECG of 22-MAR-2021 08:02, Incomplete right bundle branch block is no longer Present Criteria for Septal infarct are no longer Present Confirmed by Kevin Calhoun ([id number]) on 03/24/2021 5:11:25 PM Referred By: REFERRED SELF Confirmed By:Kevin Calhoun
== END 2021-03-24 05:13 | disposition expired | DRG 853 ==
LOC: ED 07:33 → 1E 10:09 → 3E 03-23 10:04